=== PATIENT | male | born 1940 | race Caucasian/White ===

== ENCOUNTER 2023-06-13 13:27 | Emergency (ER) | payer OTHER, SELFPAY ==
[2023-06-13 13:35] VITALS: BP 143/74
--- NOTE | 2023-06-13 16:16 | ED.GENMED ---
History of Present Illness
General
Chief Complaint: Headache
Source: patient
Exam Limitations: none
Time Seen by Provider: 06/13/23 16:00
Nursing documentation reviewed up to this point in time: agreed with
Travel History
Have you had any contact with someone who has COVID-19?: No
Do you have any symptoms of coronavirus? Fever > 100 degrees, chills, cough, shortness of breath, sore throat, loss of taste or smell, muscle aches, or headache?: No
History of Present Illness
History of Present Illness:
Patient states he was diagnosed with shingles 3 weeks ago. Involved right posterior scalp right side of face. 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 States for the past 24 hours he has had intermittent shooting pain thru scalp. Pain
lasts just a few seconds. No additional symptoms. Brought self to ED for eval.
Past History
Past History
ED Past Medical History: Arrthythmia (Atrial fibrillation noted during hospitalization October 2022), Cancer (Laryngeal cancer, colon cancer) and Other (Pneumonia)
ED Past Surgical History: Bowel resection, Cholecystectomy, Urological and Other (Tracheostomy/laryngectomy)
Social History
Tobacco: Former smoker
Alcohol: None
Drug: None
Living: alone
Employment: Retired
Family History
Family History: Other (Noncontributory)
Review of Systems
Review of Systems
Allergies reviewed?: Yes
All Other Systems: ROS reviewed and negative except as documented in HPI and ROS
Constitutional: Reports no symptoms
EENT: Reports no symptoms
Respiratory: Reports no symptoms
Cardiac: Reports no symptoms
ABD/GI: Reports no symptoms
Musculoskeletal: Reports no symptoms
Skin: Reports no symptoms
Neurological: Reports other (shooting pain thru scalp)
Psychiatric: Reports no symptoms
Phy Exam
General Physical Exam
General Presentation: well appearing and no apparent distress
General age: appears stated age
General Skin: dry
General Habitus: normal
General Mental: alert
ENT Exam
ENT Exam: EOMI, TM's normal and neck supple
Neurological Exam
Neurological Exam: alert, oriented x3, CN II-XII intact, no motor deficits, no sensory deficits, speech normal (laryngectomy in past. Uses electrolarynx for speech.) and normal gait
Musculoskeletal Exam
Musculoskeletal Exam: full ROM
Skin Exam
Skin Exam: normal color, warm/dry and no rash
Psychiatric Exam
Psychiatric Exam: normal mood/affect
Course
Vital Signs
Initial and Last Documented VS:
Initial Vital Signs
Temp Pulse Resp BP Pulse Ox
98.9 F 73 18 143/74 98
06/13/23 13:35 06/13/23 13:35 06/13/23 13:35 06/13/23 13:35 06/13/23 13:35
Last Documented Vital Signs
Temp Pulse Resp BP Pulse Ox
98.9 F 73 18 143/74 98
06/13/23 13:35 06/13/23 13:35 06/13/23 13:35 06/13/23 13:35 06/13/23 13:35
*Critical Care Note
Total Time (30-74mins, 75-104mins- exclusive of procedures): Not Applicable
Update Note
Update Note:
Patient to ED with intermittent shooting pain to scalp following shingles outbreak 3 weeks ago. No new rash noted. No swelling or discharge to face or scalp. No other symptoms present. Consistent with post herpetic neuralgia. Rx for gabapentin
given. He is discharged home, will follow upw tih PCP
ED Attending Note
-
Portions of this chart may have been created with voice recognition software.� Occasional wrong word or��sound alike� substitutions may have occurred due to the inherent limitations of voice recognition software.
Discharge Plan
Departure
Patient Disposition: Home (Routine Discharge)
Date of Disposition: 06/13/23
Time of Disposition: 16:11
Patient with high blood pressure during this ER visit?: No
Condition: Good
Discharge Problem:
Neuralgia, post-herpetic
Instructions: Neuropathic pain
Prescriptions:
New
gabapentin 300 mg capsule
300 mg PO DIRECTED Qty: 61 0RF
Rx Instructions:
Take 300mg daily for 1 day, then 600mg every 12 hours
No Action
rosuvastatin [Crestor] 10 mg Tablet
10 mg PO QPM
Eliquis 5 mg Tablet
5 mg PO BID Qty: 60 0RF
guaifenesin 600 mg Tablet Extended Release 12hr
600 mg PO Q12 Qty: 14 0RF
metoprolol succinate 25 mg Tablet Extended Release 24 Hr
25 mg PO DAILY Qty: 30 0RF
amiodarone [Pacerone] 200 mg Tablet
200 mg PO BID Qty: 60 0RF
furosemide [Lasix] 40 mg tablet
40 mg PO BID Qty: 60 0RF
ketoconazole 2 % Shampoo
1 applic TOPICAL PRN PRN (Reason: face)
desonide 0.05 % Lotion
1 applic TOPICAL PRN PRN (Reason: face )
clobetasol 0.05 % Lotion
1 applic TOPICAL PRN PRN (Reason: legs)
Activity Restrictions/Additional Instructions:
Follow up with your family doctor in the AM
Interventions
Interventions:
*Risk Screen - Suicide Last Done: 06/13/23 13:35
*General Assessment Last Done: 06/13/23 13:35
*Neglect/Abuse Screening Last Done: 06/13/23 13:35
*ED COVID-19 Vaccine History Last Done: 06/13/23 13:35
[2023-06-13 16:45] VITALS: BP 135/54
== END 2023-06-13 16:59 | disposition home or self-care (01) ==
LOC: EMR 13:27
PROVIDERS: EMERGENCY PHYSICIAN Emergency Medicine; FAMILY PHYSICIAN Physician Assistant Medical
DX: B02.29 Other postherpetic nervous system involvement (principal); Z87.891 Personal history of nicotine dependence
CPT/HCPCS: 99283

== ENCOUNTER → 2023-06-27 09:42 | Outpatient (REF) | payer OTHER, SELFPAY | LOC: HWRAD 09:42 | PROVIDERS: ATTENDING PHYSICIAN Family Medicine; FAMILY PHYSICIAN Physician Assistant Medical | DX: R22.1 Localized swelling, mass and lump, neck (principal); R21 Rash and other nonspecific skin eruption | CPT/HCPCS: 76536 ==

== ENCOUNTER 2023-07-16 19:44 | Inpatient (IN) | payer OTHER, SELFPAY ==
[2023-07-16] VITALS (7 sets, daily range): BP systolic 79–190; BP diastolic 53–110; BMI 24.0
[2023-07-16 15:22] LABS: % Basophils 0.1 % (0-2); % Immature Granulocytes 0.6 % (0-0.5); % Lymphocytes 5.4 % (20.5-51.1); % Monocytes 3.6 % (1.7-9.3); % Neutrophils 90.3 % (42.2-75.2); Absolute Immature Granulocytes 0.1 10^3/uL (0-0.05); Absolute Lymphocytes 0.9 10^3/uL (1.2-3.4); Absolute Monocytes 0.6 10^3/uL (0.1-0.6); Absolute Neutrophils 14.5 10^3/uL (1.4-6.5); Hematocrit 34.5 % (39.0-52.0); Hemoglobin 11.8 g/dL (13.0-18.0); Mean Corp Hgb Conc. 34.2 g/dL (33.0-37.0); Mean Corpuscular Volume 87.8 fL (80.0-94.0); Mean Platelet Volume 9.6 fL (7.4-10.4); Nucleated Red Blood Cells % 0 % (-); Platelet Count 199 10^3/uL (130-400); Red Blood Cell Count 3.93 10^6/uL (4.70-6.10); Red Cell Dist. Width 15.8 % (11.5-14.5)
[2023-07-16 15:35] LABS: INR 1.43; PT 17.3 Sec (11.4-14.6)
[2023-07-16 15:47] LABS: ALT (SGPT) 42 U/L (0-50); AST (SGOT) 45 U/L (17-59); Albumin 2.3 g/dl (3.5-5.0); Alkaline Phosphatase 100 U/L (38-126); Blood Urea Nitrogen 33 mg/dl (9-20); Calcium 8.4 mg/dl (8.4-10.2); Carbon Dioxide 27 mmol/L (22-30); Chloride 103 mmol/L (98-107); Glucose 98 mg/dl (70-99); Potassium 3.9 mmol/L (3.5-5.1); Sodium 133 mmol/L (135-145); Total Bilirubin 0.7 mg/dl (0.2-1.3); Total Protein 4.7 g/dl (6.3-8.2); eGFR > 60.00
[2023-07-16 15:54] LABS: NT-proBNP 2080 pg/ml; Troponin I 0.105 ng/ml
--- NOTE | 2023-07-16 17:46 | ED.GENMED ---
History of Present Illness
General
Chief Complaint: Skin Problem
Source: patient and family (Son, spoke via telephone)
Exam Limitations: none
Time Seen by Provider: 07/16/23 16:48
Nursing documentation reviewed up to this point in time: agreed with
Travel History
Have you had any contact with someone who has COVID-19?: No
Do you have any symptoms of coronavirus? Fever > 100 degrees, chills, cough, shortness of breath, sore throat, loss of taste or smell, muscle aches, or headache?: No
History of Present Illness
History of Present Illness:
83-year-old male with past medical history of laryngeal cancer status post laryngectomy, colon cancer status post partial bowel resection, atrial fibrillation on Eliquis (follows with Dr. Giles for cardiology), CHF who presents to the emergency
department from home for evaluation of increased swelling in his legs and increasing shortness of breath. Patient reports that for the past 2 weeks or so he has noticed increasing edema in his legs right slightly greater than left associated with
some weeping of fluid from the legs. Over that same period of time he says he has noticed some increasing shortness of breath; this shortness of breath have gotten much worse over the past few days. He says it is gotten to the point where it takes
him a very long time even to just walk up the stairs due to need for frequent rest. Finally came to the emergency room to be evaluated. He does note that in addition to above symptoms he has had some thick mucus discharge from his stoma; he says
his primary doctor prescribed him levofloxacin which he has taken x 3 total doses including today.
Past History
Past History
ED Past Medical History: Arrthythmia (Atrial fibrillation noted during hospitalization October 2022), Cancer (Laryngeal cancer, colon cancer) and Other (Pneumonia)
ED Past Surgical History: Bowel resection, Cholecystectomy, Urological and Other (Tracheostomy/laryngectomy)
Social History
Tobacco: Former smoker
Alcohol: None
Drug: None
Living: alone
Employment: Retired
Family History
Family History: Other (Noncontributory)
Review of Systems
Review of Systems
All Other Systems: ROS reviewed and negative except as documented in HPI and ROS
Constitutional: Denies fever or chills
EENT: Denies sore throat or runny nose
Respiratory: Reports cough and trouble breathing
Cardiac: Denies chest pain or palpitations
ABD/GI: Denies abdominal pain, nausea or vomiting
: Denies flank pain
Musculoskeletal: Reports edema; Denies neck pain or back pain
Neurological: Denies headache
Phy Exam
Physical Exam
Physical Exam:
General: Awake, alert; no acute distress
Head: Normocephalic, atraumatic
Eyes: Conjunctiva normal, EOMI
Throat: Stoma; patient has hacking cough and produces thick black sputum from stoma
Neck: Trachea midline, supple without meningismus
Lungs: Mild tachypnea, normal pulse ox on room air, bibasilar rales
Heart: Regular rate and rhythm, no murmurs, gallops, or rubs
Abd: Soft, non distended, nontender
Neuro: Cranial nerves grossly intact, speech fluid
Extremities: Bilateral lower extremity edema slightly greater right than left +2 pitting; extremities are warm and well-perfused
Scores
Heart Failure Risk
Heart Failure Risk Score: Not Applicable
Heart Score for Chest Pain Patients
STEMI patient?: Not applicable
Withdrawal Assessment of Alcohol
Withdrawal Assessment Completed?: Not applicable
Course
Orders/Labs/Results
Orders:
Orders
07/16/23 Breakfast
Cholesterol Lowering
At Your Request: Limited, Beauty Specialist Required
Does patient need a safe tray?: No
Cholesterol Lowering: Sodium, 2 Gram
07/16/23 15:10
Electrocardiogram (*1) Urgent
Reason for Study: Shortness of Breath
EKG- Treatment ONCE
07/16/23 15:15
Complete Blood Count/With Diff Urgent
Comprehensive Metabolic Panel Urgent
NT-proBNP Urgent
PT/INR [Prothrombin Time] Urgent
Troponin I Urgent
07/16/23 16:49
CR Chest - 2 Views Urgent
Comment:
Reason For Exam: sob
US Periph Venous LOWER Ext Iain Urgent
Comment:
Reason For Exam: b/l leg swelling R>L
07/16/23 17:46
Furosemide [Lasix] 40 mg IV NOW STA
07/16/23 18:12
INFECTIOUS DISEASE CONSULT Routine
Consulting Provider: Linda Valentin
Was physician already notified: Yes
Cefepime HCl [Maxipime] 1,000 mg IV NOW STA
07/16/23 18:14
Lactate Level [Lactic Acid] Urgent
Blood Culture Q30M
SONY Source: Blood/Venous
Specimen Description:
Blood Culture Q30M
SONY Source: Blood/Venous
Specimen Description:
07/16/23 18:41
Admit/Transfer Patient As Directed
Co-Sign Provider:
Level of Care: Inpatient admission
Assign to:: Telemetry
Physician / Group: Iris
Diagnosis: Pneumonia, CHF
Reason for Telemetry: Acute Heart Failure
Date to Stop Telemetry: 07/19/23
Time to Stop Telemetry: 11:00
Reason for Hospitalization: IV abx, IV diuretics
Expected length of stay greater than two midnights?: Yes
ELOS- Estimated Length of Stay in days: 3
I certify the patient meets the requirements for IP care: Yes
07/16/23 18:43
Code Status As Directed
Resuscitation Status: Full Code
07/16/23 20:08
Apixaban [Eliquis] 5 mg PO BID
Guaifenesin [Mucinex] 600 mg PO Q12
07/16/23 20:08
Echo 2D MMode Color/Doppler Routine
Reason for Study: heart failure
CARDIOLOGY CONSULT Routine
Consulting Provider: Linwood Mendez
Was physician already notified: Yes
HF DIETARY CONSULT Routine
HF EDUCATOR CONSULT Routine
Comment:
Activity As Directed
Activity Level: Out of Bed-Early Mobility
Intake/ Output As Directed
Frequency: Per unit guidelines
Knee High Compression Therapy [Compression Therapy] As Directed
Location/extremity:: Left LE knee high
Right LE knee high
Type of compression therapy:: Sammy Wrap
Patient Education As Directed
Type: CHF folder
Comment: give on admission. Document in Interdisciplinary Education record
Sleep Apnea Assessment by RN As Directed
Comment:
Physician Instructions:
Vital Signs As Directed
Frequency: Other
Additional Instructions:: Q12 or per unit guidelines if more frequent.
Weight As Directed
Frequency: Daily
Type of Scale: Standing Scale
Comment: Daily morning weight. If unable to stand, use balanced bed scale.
Weight As Directed
Frequency: Once
Type of Scale: Standing Scale
Comment: Upon Admission. If unable to stand, use balanced bed scale.
Pulse Ox/cont/shift [RESP] Routine
Quantity: 1
Special Instructions: Daily pulse oximetry at rest. If greater than 92% at rest also obtain pulse oximetry
while ambulating as tolerated.
07/16/23 20:56
Troponin I Q6H
07/16/23 22:00
Gabapentin [Neurontin] 600 mg PO TID
07/16/23 23:04
Sputum Culture [Respiratory Culture/Gram Stain] Urgent
SONY Source: Tracheal Site
Specimen Description:
Date Specimen was Collected: 07/16/23
Time Specimen was Collected: 22:58
07/17/23 03:00
Troponin I Q6H
07/17/23 06:00
Basic Metabolic Panel IN AM
Cardiovascular Evaluation IN AM
Complete Blood Count/No Diff IN AM
Magnesium IN AM
07/17/23 08:00
Amiodarone [Pacerone] 200 mg PO DAILY
Cefepime HCl [Maxipime] 2,000 mg IV Q12H
Furosemide [Lasix] 40 mg IV BID AT 0800,1600
Metoprolol Xl [Toprol Xl] 25 mg PO DAILY
Prednisone [Deltasone] 20 mg PO DAILY
07/17/23 18:00
Rosuvastatin Calcium [Crestor] 10 mg PO QPM
07/18/23 06:00
Basic Metabolic Panel IN AM
07/19/23 06:00
Basic Metabolic Panel IN AM
07/19/23 11:00
DC Protocol for Telemetry ONCE
Abnormal Lab Results
07/16/23
15:15
WBC 16.0 H 10^3/uL
(4.8-10.8)
RBC 3.93 L 10^6/uL
(4.70-6.10)
Hgb 11.8 L g/dL
(13.0-18.0)
Hct 34.5 L %
(39.0-52.0)
RDW 15.8 H %
(11.5-14.5)
Abs Immat Gran (auto) 0.1 H 10^3/uL
(0-0.05)
Absolute Neuts (auto) 14.5 H 10^3/uL
(1.4-6.5)
Absolute Lymphs (auto) 0.9 L 10^3/uL
(1.2-3.4)
Immature Gran % 0.6 H %
(0-0.5)
Neutrophils % 90.3 H %
(42.2-75.2)
Lymphocytes % 5.4 L %
(20.5-51.1)
PT 17.3 H Sec
(11.4-14.6)
Sodium 133 L mmol/L
(135-145)
BUN 33 H mg/dl
(9-20)
Troponin I 0.105 H* ng/ml
Total Protein 4.7 L g/dl
(6.3-8.2)
Albumin 2.3 L g/dl
(3.5-5.0)
07/16/23 15:15
07/16/23 15:15
Vital Signs
Initial and Last Documented VS:
Initial Vital Signs
Temp Pulse Resp BP Pulse Ox
36.7 C 60 16 190/110 95
07/16/23 15:06 07/16/23 15:06 07/16/23 15:06 07/16/23 15:06 07/16/23 15:06
Last Documented Vital Signs
Temp Pulse Resp BP Pulse Ox
36.9 C 78 20 103/57 97
07/16/23 23:42 07/16/23 23:42 07/16/23 23:42 07/16/23 23:42 07/16/23 23:42
MDM/Problems Addressed
Differential Diagnosis Includes:
CHF, pneumonia, bronchitis
MDM/Problems Addressed:
83-year-old male presents for evaluation of increasing edema in his legs also increasing shortness of breath for the past 2 weeks; shortness of breath much worse over the past few days. He has been on antibiotics recently for productive cough�has
taken 3 total doses of levofloxacin last dose was this afternoon. He is hypertensive in triage normalized by myself the rest of vitals significantly for mild tachypnea. Physical exam as above. Plan to place an IV check labs including CBC and CMP,
troponin, BNP. Check chest x-ray and EKG. Monitor closely reassess after the above.
Labs reviewed: CBC shows leukocytosis to 16�with leukocytosis and tachycardia and concern for infection with productive cough will add lactate and blood cultures. CMP shows no clinically significant abnormalities. proBNP is elevated as is his
troponin and suspect likely mild CHF exacerbation as cause for his increasing abdominal and contributing to his shortness of breath. The chest x-ray however shows significant left lower lobe pneumonia as well which is likely primary tilt tray driver of his
worsening dyspnea recently. Will plan dose with some Lasix for mild CHF. Will need to trend troponin. Discussed with infectious disease regarding antibiotic coverage given he did take a dose of Levaquin today�recommended sputum culture and a dose
of IV cefepime. Will admit to the hospitalist for continued management. Discussed with hospitalist for admission.
Chronic conditions affecting care:
Laryngeal cancer status post laryngectomy
Acute Exacerbation and/or Progression of Chronic Illness:
Acutely hypertensive resolved without intervention continue to monitor but no additional antihypertensive indicated at present
Acute Exacerbation and/or Progression of Chronic Illness: HTN
*Radiology
Radiology exam reviewed: preliminary read by ED provider (Left lower lobar pneumonia) and radiology read reviewed
*Pulse Oximetry
Patient hypoxic: no
*EKG
Interpreted by ED Provider?: Yes
Heart Rate: 85
Rate: normal
Rhythm: sinus
[place]: normal axis
Interval: normal interval
QRS Pattern: normal QRS
Ischemia: non-specific ST changes
*Critical Care Note
Total Time (30-74mins, 75-104mins- exclusive of procedures): Not Applicable
Data Reviewed
Review of Other/Old Records Reveals: Labs and Records
Source: patient, records and family (Spoke with patient's son on the phone)
Patient Management
Discussion with other providers: Hospitalist (Discussed with hospitalist) and Insights Analyst (Discussed with infectious disease)
Escalation/DeEscalation of care consider admission/obs:
Admission indicated
ED Attending Note
-
Portions of this chart may have been created with voice recognition software.� Occasional wrong word or��sound alike� substitutions may have occurred due to the inherent limitations of voice recognition software.
Discharge Plan
Departure
Patient Disposition: Admit
Date of Disposition: 07/16/23
Time of Disposition: 18:11
Admit to doctor: Wilbert
Presentation/result/management discussed w/ accepting MD/DO: Hospitalist
Discharge Problem:
Pneumonia, CHF exacerbation
Interventions
Interventions:
*Risk Screen - Suicide Last Done: 07/16/23 17:28
*General Assessment Last Done: 07/16/23 17:28
*Neglect/Abuse Screening Last Done: 07/16/23 17:28
ED- Fall Risk Assessment Last Done: 07/16/23 21:07
*ED COVID-19 Vaccine History Last Done: 07/16/23 15:06
*Nursing Disposition Last Done: 07/16/23 21:07
Discharge Date and Time
Discharge Date/Time: 07/16/23 21:07
[2023-07-16] MEDS: LASIX 40 MG IV (18:10)
[2023-07-16 18:40] LABS: Lactic Acid 0.9 mmol/L (0.7-2.0)
[2023-07-16] MEDS: MAXIPIME 1000 MG IV (19:04)
--- NOTE | 2023-07-16 19:06 | HPS.HSE ---
Addendum entered and electronically signed by Roberto Simmons MD 07/16/23 21:10:
I saw and examined the patient.
The POSSUM TRAPPER or PA's note was reviewed and I agree with the note.
Comment:
83M A-fib, CHF, CAD, laryngeal cancer s/p laryngectomy recent shingles affecting right sided of head, resolving on steroid taper, p/w increased shortness of breath, lower extremity edema and weeping from legs, progressive exertional dyspnea, �past
two weeks. SOB especially worsening over past few days. �Patient was prescribed Levaquin by his PCP which he took for 3 days without significant resolution of symptoms. Denies fevers, sweats or chills.� CXR suggestive of Left Lower PNA.� BNP and
troponin elevation noted.� Chest Pain free.
Physical Exam
General: No pallor, cyanosis, or jaundice.
HEENT: Throat clear. PERRLA Normocephalic atraumatic
NECK: Supple. No Carotid Bruits, Stoma present
RESPIRATORY: Lungs clear to auscultation. No crackles wheezes stridor
CVS: S1, S2 normal. RRR.� No murmur, rub or gallop.
ABDOMEN: Soft, non-tender. No distension. BS+/normal.
EXTREMITIES: weeping lower ext�s edema +2.
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
#HF exacerbation
#PNA
#Recent Right Facial Shingles with Post-Herpetic Neuralgia, resolving
Wean off steroids
IV Lasix daily weights I/O
Empiric Cefipime as per ID
Cardio ID eval
Venous Duplex appreciated neg DVT�
Compressive MARISA wraps lower ext�s
PT/OT eval
Original Note:
Family Physician
-
Family Physician: * NONE
Chief Complaint
-
Shortness of Breath, and Lower Extremity
History of Present Illness
Patient is an 83 y/o male past medical history of A-fib, CHF, CAD, and laryngeal cancer s/p laryngectomy who presents with increased shortness of breath, lower extremity edema and weeping from the legs. Patient notes worsening symptoms over the
past two weeks. He reports breathing has gotten much worsen of the past dew days. He notes now he needs to rest frequently while walking up the stairs but to pain in his calves. He reports increased thick mucus from his tracheostomy thus his PCP
prescribed him Levaquin for which he has taken the past 3 days. He denies fevers, sweats or chills.
Medical History
Past Medical History
Past Medical History: Reports Other
Additional Past Medical History:
Paroxysmal Atrial Fibrillation
Chronic HFpEF
Coronary Artery Disease
Essential Hypertension
Hyperlipidemia
Laryngeal Cancer
Colon Cancer
Past Surgical History: Reports Other
Additional Past Surgical History:
Laryngectomy with Tracheostomy
Colectomy
Cholecystectomy
Social History
Tobacco: Former Smoker
Family History
Family History: Not pertinent
Allergies / Home Medications
Allergies reflects when Allergies were last updated in [employer].
Home Medications with original date entered in [employer]
Allergy/Medication List:
Allergies
Allergy/AdvReac Type Severity Reaction Status Date / Time
No Known Allergies Allergy Verified 07/16/23 15:09
Home Medications
rosuvastatin 10 mg tablet (Crestor) 10 mg PO QPM High Cholesterol 11/20/22
apixaban 5 mg tablet (Eliquis) 5 mg PO BID #60 tabs 11/24/22
guaifenesin 600 mg tablet, extended release 12 hr 600 mg PO Q12 #14 tabs 11/24/22
metoprolol succinate 25 mg tablet,extended release 24 hr 25 mg PO DAILY #30 tabs 11/24/22
furosemide 40 mg tablet (Lasix) 40 mg PO BID #60 tabs 12/08/22
clobetasol 0.05 % lotion 1 applic topical PRN PRN legs 12/28/22
desonide 0.05 % lotion 1 applic topical PRN PRN face 12/28/22
ketoconazole 2 % shampoo 1 applic topical PRN PRN face 12/28/22
amiodarone 200 mg tablet (Pacerone) 200 mg PO DAILY 07/16/23
gabapentin 300 mg capsule 600 mg PO TID 07/16/23
levofloxacin 500 mg tablet 500 mg PO DAILY 07/16/23
prednisone 10 mg tablet 10 mg PO .TAPER 07/16/23
Review of Systems
-
A 12 point ROS was completed and negative except as noted: Yes
Constitutional: Denies Fever or Chills
Respiratory: Reports Trouble Breathing; Denies Cough
Cardiac: Denies Chest Pain or Palpitations
Physical Exam
Vital Signs
Vital Signs
Temp Pulse Resp BP Pulse Ox
98.0 F 74 23 107/66 95
07/16/23 15:06 07/16/23 18:10 07/16/23 18:00 07/16/23 18:10 07/16/23 17:00
Physical Exam
General: Comfortable and Conversant
HEENT: Anicteric, Moist mucous membranes and Tracheotomy
Respiratory: Rales (Left middle and lower region, Right abse) and Non Labored Respirations
Cardiac: S1/S2 and Regular Rhythm; No Tachycardia or Murmur
GI: Soft and Non Tender
Rectal: Deferred by Provider
Musculoskeletal: No Clubbing, No Cyanosis and Other (+3 pitting edema bilateral lower ext)
Skin: Warm and Dry
Neuro: Awake, Alert, Oriented and Nonfocal/grossly intact
Psych: Calm
Laboratory Results
-
07/16/23 15:15
07/16/23 15:15
Laboratory Results
PT 17.3 Sec (11.4-14.6) H 07/16/23 15:15
INR 1.43 07/16/23 15:15
Lactic Acid 0.9 mmol/L (0.7-2.0) 07/16/23 18:14
Total Bilirubin 0.7 mg/dl (0.2-1.3) 07/16/23 15:15
AST 45 U/L (17-59) 07/16/23 15:15
ALT 42 U/L (0-50) 07/16/23 15:15
Alkaline Phosphatase 100 U/L (38-126) 07/16/23 15:15
Troponin I 0.105 ng/ml H* 07/16/23 15:15
Data Reviewed
-
Diagnostic Radiology: Report Reviewed by me
Lab Data: Labs Reviewed by me
Old Records: Reviewed
Impression/Plan
-
Left-Sided Pneumonia
-Consult Infectious Disease
-Check sputum culture
-Transition to Cefepime
Acute on Chronic HFpEF
-Echo Oct 2022: EF 55-60%. Mild concentric left ventricular hypertrophy. Stage II diastolic dysfunction.
-Continue Lasix 40mg IV BID
-Monitor Is&Os and Daily Weights
Non-Ischemic Myocardial Injury
-Continue to trend troponin
Recent Right Facial Shingles with Post-Herpetic Neuralgia
-Continue gabapentin
-Suspect prednisone is contributing his fluid retention - Wean off prednisone
Paroxysmal Atrial Fibrillation
-Continue Eliquis for anticoagulation
-Continue amiodarone and metoprolol for rate/rhythm control
Coronary Artery Disease
-No prior stents
Essential Hypertension
-Continue metoprolol
Hyperlipidemia
-Continue Crestor
Laryngeal Cancer s/p Laryngectomy and Tracheostomy
Colon Cancer s/p Colon Resection
DVT proph: Eliquis
Code Status: Full Code
--- NOTE | 2023-07-16 19:26 | W.PN.UPDATE ---
Update Note
Progress Note Update
billing purposes
[2023-07-16 21:37] LABS: Troponin I 0.116 ng/ml
--- NOTE | 2023-07-16 22:00 | PTCARENOTE ---
Patient admitted to 401-2. Ambulatory from stretcher to bed with one assist. Patient with a neck stoma, respiratory notified. Patient puts normal saline stoma, and he couged up some blood tinged sputum, respiratory culture sent. Patient with +2
bilateral lower extremity edema, at this time they are not weeping. Patient instructed to ring for assistance prior to getting out of bed, he verbalized understanding. Call waite in reach.
[2023-07-16] MEDS: NEURONTIN 600 MG PO (22:41)
[2023-07-16] MEDS: ELIQUIS 5 MG PO (22:42)
[2023-07-16] MEDS: MUCINEX 600 MG PO (22:42)
[2023-07-17] VITALS (7 sets, daily range): BP systolic 95–135; BP diastolic 61–76; PULSE 72; O2SAT 97; BMI 24.0
[2023-07-17] MEDS: NEURONTIN 600 MG PO ×3 (04:46→21:31)
[2023-07-17 05:10] LABS: Troponin I 0.092 ng/ml
[2023-07-17 06:50] LABS: Hematocrit 35.3 % (39.0-52.0); Hemoglobin 11.6 g/dL (13.0-18.0); Mean Corp Hgb Conc. 32.9 g/dL (33.0-37.0); Mean Corpuscular Hgb 29.9 pg (27.0-31.0); Mean Platelet Volume 10.2 fL (7.4-10.4); Platelet Count 182 10^3/uL (130-400); Red Blood Cell Count 3.88 10^6/uL (4.70-6.10); Red Cell Dist. Width 15.8 % (11.5-14.5); White Blood Cell Count 11.6 10^3/uL (4.8-10.8)
[2023-07-17 07:16] LABS: Blood Urea Nitrogen 32 mg/dl (9-20); Calcium 8.4 mg/dl (8.4-10.2); Carbon Dioxide 29 mmol/L (22-30); Chloride 102 mmol/L (98-107); Estimated Creatinine Clearance 50 ml/min; Glucose 95 mg/dl (70-99); HDL Cholesterol 92 mg/dl; LDL Cholesterol, Calculated 18 mg/dl; Magnesium 2.4 mg/dl (1.6-2.3); Sodium 134 mmol/L (135-145); Total Cholesterol 140 mg/dl (50-199); Triglyceride 153 mg/dl (10-149); Very Low Density Lipoprotein 30 mg/dl (0-30); eGFR > 60.00
[2023-07-17 07:21] LABS: Potassium 3.7 mmol/L (3.5-5.1)
--- NOTE | 2023-07-17 07:58 | W.PN.HOSP.TC ---
Today's Communication/Plan
-
steroid tapers
abx
diuretics
daily weights I/O
PT/OT
Assessment / Plan
Assessment / Plan
Physical Exam
General: No pallor, cyanosis, or jaundice.
HEENT: Throat clear. PERRLA Normocephalic atraumatic
NECK: Supple. No Carotid Bruits, Stoma present
RESPIRATORY: Lungs clear to auscultation. No crackles wheezes stridor
CVS: S1, S2 normal. RRR.� No murmur, rub or gallop.
ABDOMEN: Soft, non-tender. No distension. BS+/normal.
EXTREMITIES: lower ext's MARISA compressive wrapping in place clean dry intact.
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
83M A-fib, CHF, CAD, laryngeal cancer s/p laryngectomy recent shingles affecting right sided of head, resolving on steroid taper, p/w increased shortness of breath, lower extremity edema and weeping from legs, progressive exertional dyspnea, �past
two weeks. SOB especially worsening over past few days. �Patient was prescribed Levaquin by his PCP which he took for 3 days without significant resolution of symptoms. Denies fevers, sweats or chills.� CXR suggestive of Left Lower PNA.� BNP and
troponin elevation noted.� Chest Pain free.
Left-Sided Pneumonia
-Consult Infectious Disease appreciated cont empiric Cefipime, doxycycline added 07/16
-Follow cultures
Acute on Chronic HFpEF
-Echo appreciated EF 55-60%. Mild concentric left ventricular hypertrophy. Stage II diastolic dysfunction. Mod to severe tricuspid regurgitation, no significant change to prior ECHO Oct 2022
-Continue Lasix 40mg IV BID
-Monitor Is&Os and Daily Weights
-Cardio eval appreciated
Non-Ischemic Myocardial Injury
-troponin peaked 0.116 since trended down, chest pain free
Recent Right Facial Shingles with Post-Herpetic Neuralgia
-Continue gabapentin
-Suspect prednisone is contributing his fluid retention - Weaning off prednisone
-prednisone 20 mg daily x2 days then 10 mg daily x2 days then stop
-Emla cream prn
Paroxysmal Atrial Fibrillation
-Continue Eliquis for anticoagulation
-Continue amiodarone and metoprolol for rate/rhythm control
Essential Hypertension
-Continue metoprolol
Hyperlipidemia
-Continue Crestor
Laryngeal Cancer s/p Laryngectomy and Tracheostomy
Colon Cancer s/p Colon Resection
DVT proph: Eliquis
Code Status: Full Code
PT/OT appreciated Home PT vs no needs
discussed with patient at bedside and his son Sefeirno over phone
I spent a total of 50 minutes with the patient or on the floor. More than 50% of this time involved counseling and coordination of care.
Anticipated Discharge: 24 - 48 hours
Subjective/Interval History
-
Date of Service: July 17, 2023
reports significant improvement in overall symptoms. Appears comfortable at this time. reports constipation
Objective Data
-
Labs:
Laboratory Results
07/17/23
06:11
WBC 11.6 H
Hgb 11.6 L
Hct 35.3 L
Plt Count 182
Sodium 134 L
Potassium 3.7
Chloride 102
Carbon Dioxide 29
BUN 32 H
Creatinine 1.0
Glucose 95
Calcium 8.4
Vital Signs:
Vital Signs
Temp Pulse Resp BP Pulse Ox
98.1 F 70 18 100/68 99
07/17/23 03:18 07/17/23 03:18 07/17/23 03:18 07/17/23 03:18 07/17/23 03:18
I&O
07/16/23 07/17/23 07/18/23
06:59 06:59 06:59
Intake Total 360 / 360
Output Total 1000 / 1000
Balance -640 / -640
[2023-07-17] MEDS: MUCINEX 600 MG PO ×2 (08:06→19:39)
[2023-07-17] MEDS: PACERONE 200 MG PO (08:06)
[2023-07-17] MEDS: ELIQUIS 5 MG PO ×2 (08:07→19:39)
[2023-07-17] MEDS: DELTASONE 20 MG PO (08:07)
[2023-07-17] MEDS: TOPROL XL 25 MG PO (08:07)
[2023-07-17] MEDS: LASIX 40 MG IV ×2 (08:07→15:50)
[2023-07-17] MEDS: STERILE WATER FOR INJECTION 10 ML IV ×2 (08:08→19:40)
[2023-07-17] MEDS: MAXIPIME 2000 MG IV ×2 (08:08→19:40)
--- NOTE | 2023-07-17 10:04 | CON.CAR ---
Addendum entered and electronically signed by Kota Salazar MD 07/17/23 13:31:
I saw and examined the patient.
The ORCHESTRA LEADER or PA's note was reviewed and I agree with the note.
Comment: General: Well developed, well nourished in NAD.
Neck: Supple, no JVD, HJR, carotids +2 B/L, no bruits bilaterally.
Heart: Non displaced PMI, RRR, no murmurs, No S3, S4, no rubs.
Lungs: Scattered rhonchi
Extremities: No clubbing, cyanosis or edema bilaterally.
Neuro: Grossly nonfocal, awake, alert and oriented x3.
Bennie has a history of chronic diastolic CHF, laryngeal cancer status post resection and tracheostomy with speaking valve, colon cancer, amaurosis fugax, moderate CAD noted on CAT scan. He had CHF and paroxysmal atrial flutter in October 2022. He has
noted several weeks of weight gain with worsening lower extremity edema with weeping and shortness of breath with exertion and abdominal bloating. He has a bit of acute diastolic CHF. proBNP is 0. Chest x-ray also read as pneumonia and he is
on antibiotics.
Will continue IV Lasix and recheck echocardiogram. Of note lowest weight by prior records in December 2022 was 141 pounds and is currently 144 pounds.
Original Note:
Consultation
Consultation Request
Date/Time Consultation Performed: 07/17/23
Requesting Provider: Dr. Simmons
Performing Provider: Afua Troy PA-C for Dr. Salazar
Reason for Consultation: CHF
Medical History
-
Chief Complaint: LE edema, SOB
History of Present Illness:
Patient is an 83-year-old male with past medical history of laryngeal cancer status postresection and tracheostomy with speaking valve, history of colon cancer status post partial colectomy, moderate CAD, dyslipidemia, who we had seen during
previous admissions for pneumonia and new paroxysmal atrial flutter 10/2022, then for CHF in 12/2022. He reports he has been compliant with his p.o. Lasix 40 mg twice daily. He states over the last several weeks he has noticed weight gain, worsening
lower extremity edema with weeping, and shortness of breath with exertion. He is also noted abdominal bloating. Denies chest pain or palpitations. proBNP 2079. Chest x-ray read as severe left lower lobe pneumonia, with small parapneumonic
pleural effusion, however clinically appears more likely to be in heart failure. He is afebrile. He was recently treated for shingles affecting R side of head, on steroid taper.
PMH:
chronic HFpEF
Paroxysmal atrial fibrillation/atrial flutter diagnosed 10/2022, rate controlled
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
History of colon cancer in 2004 status post partial colectomy
Amaurosis fugax
Dyslipidemia
Moderate CAD noted on CT of the chest
History of pulmonary nodules
Past Medical History
Past Medical History: Other (in HPI)
Social History
Tobacco: Former Smoker
Employment: Retired
Allergies / Home Medications
Allergy/AdvReac Type Severity Reaction Status Date / Time
No Known Allergies Allergy Verified 07/16/23 15:09
�Medication �Instructions �Recorded �Confirmed �Type
rosuvastatin 10 mg tablet (Crestor) 10 mg PO QPM High Cholesterol 11/20/22 07/16/23 History
apixaban 5 mg tablet (Eliquis) 5 mg PO BID #60 tabs 11/24/22 07/16/23 Rx
guaifenesin 600 mg tablet, 600 mg PO Q12 #14 tabs 11/24/22 07/16/23 Rx
extended release 12 hr
metoprolol succinate 25 mg 25 mg PO DAILY #30 tabs 11/24/22 07/16/23 Rx
tablet,extended release 24 hr
furosemide 40 mg tablet (Lasix) 40 mg PO BID #60 tabs 12/08/22 07/16/23 Rx
clobetasol 0.05 % lotion 1 applic topical PRN PRN legs 12/28/22 07/16/23 History
desonide 0.05 % lotion 1 applic topical PRN PRN face 12/28/22 07/16/23 History
ketoconazole 2 % shampoo 1 applic topical PRN PRN face 12/28/22 07/16/23 History
amiodarone 200 mg tablet (Pacerone) 200 mg PO DAILY 07/16/23 07/16/23 History
gabapentin 300 mg capsule 600 mg PO TID 07/16/23 07/16/23 History
levofloxacin 500 mg tablet 500 mg PO DAILY 07/16/23 07/16/23 History
prednisone 10 mg tablet 10 mg PO .TAPER 07/16/23 07/16/23 History
Review of Systems
-
History Source: Patient
All other systems: Negative unless noted
Physical Exam
Vital Signs
Temp Pulse Resp BP Pulse Ox
97.7 F 72 18 103/71 95
07/17/23 08:02 07/17/23 08:07 07/17/23 08:02 07/17/23 08:07 07/17/23 08:02
Lab Results
07/17/23 06:11
07/17/23 06:11
Troponin I 0.092 ng/ml H* 07/17/23 03:08
Iiw-Q-Wclhcjpijer Pept 2080 pg/ml 07/16/23 15:15
Physical Exam
General: No Apparent Distress and Comfortable
HEENT: Normocephalic, Anicteric and Moist Mucous Membranes
Respiratory: Wheezes, Crackles and Non Labored Respirations
Cardiac: S1/S2 and Regular Rhythm
GI: Soft, Non Tender, Normal Bowel Sounds and Distended
Musculoskeletal: No Clubbing, No Cyanosis and Edema (2+ edema of B/L LE. jose luis compression wraps in place)
Skin: Warm and Dry
Neuro: AO x 3
Impression / Plan
-
Primary Infrastructure Engineer: Dr. Giles
Assessment:
Presentation with VILLELA, LE edema
Acute on chronic HFpEF
Elevated troponin, suspected nonischemic myocardial injury
Recent shingles, right side of head
Paroxysmal atrial fibrillation/atrial flutter diagnosed 10/2022
s/p CV 12/28/22
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
History of colon cancer in 2004 status post partial colectomy
Amaurosis fugax
Dyslipidemia
Moderate CAD noted on CT of the chest
History of pulmonary nodules
ECHO 12/13/2021: EF 50 to 55%, trace MR, mild AR, trace TR, PAP 40 to 45 mmHg, trace VT
Echocardiogram 11/23/2022: EF 55-60%, mild LVH.� Increased filling pressures, normal dilated left atrium, mild aortic regurgitation, moderate tricuspid regurgitation, pulmonary artery systolic pressure 35-40 mmHg, trace mitral regurgitation
Lexiscan nuclear stress test 04/27/2022: Normal sestamibi perfusion imaging, EF 60%
Plan:
-Patient presents with dyspnea on exertion, lower extremity edema, abdominal bloating
-proBNP elevated at 2000. Chest x-ray read as left-sided pneumonia, however history and exam felt to be consistent with acute CHF
-Continue IV Lasix 40 mg twice daily. Prior to admission patient was taking 40 mg p.o. Lasix twice daily and reports compliance. he reports prior DC weight from last admission was 134 pounds, however lowest I see is 141 pounds
-CHF education
-In sinus rhythm since admission on review of telemetry, follow. Continue Toprol, amiodarone, Eliquis
-Last echo from 10/2022, consider repeating
-Will have case management assess cost to patient of SGLT2 inhibitor
-trop elevated at 0.1 and trending down. no CP. last stress test from 04/2022 with results as above, although is noted to have coronary calcifications by CT chest. suspected nonischemic myocardial injury
-wound care to B/L LE
-Discussed with nursing
Data Reviewed
-
EKG: Tracing Personally Visualized and interpreted
Radiology: Report Reviewed by me
Medical Tests (Nuc Med, Echo etc): Report Reviewed by me
Labs: Labs Reviewed by me
Old Records: Reviewed
--- NOTE | 2023-07-17 11:00 | CON.ID ---
Consultation
-
Date/Time Consultation Requested: July 16, 2023 1812
Date/Time Consultation Performed: July 17, 2023 1100
Requesting Provider: Dr. Jose Ferreira
Performing Provider: Dr. Linda Valentin
Reason for Consultation: PNA on levofloxacin outpt
Chief Complaint / Past History
Chief Complaint
cough and sob
History of Present Illness
83-year-old male with history of paroxysmal atrial fibrillation, chronic heart failure with preserved EF, remote history of laying green gel cancer status post Laryngectomy with tracheostomy who has been complaining of worsening shortness of breath
and increasing bilateral lower extremity edema for the past 2 weeks. Also has been coughing productive of thick dark mucus from his stoma. His PCP prescribed levofloxacin 3 days prior to presentation. His dyspnea on exertion became severe and
therefore he came to the ER on July 15. Chest x-ray shows severe left-sided pneumonia. He was started on cefepime. Patient reports no fevers at home. Had some chills. Did have diarrhea but now constipated. No ill contacts. Sputum decreased
today.
Past History
Additional Past Medical History:
Paroxysmal Atrial Fibrillation
Chronic HFpEF
Coronary Artery Disease
Essential Hypertension
Hyperlipidemia
Laryngeal Cancer s/p Laryngectomy with Tracheostomy
Colon Cancer s/p colectomy
Right posteior scalp shingles with PHN
cholecystectomy
Allergy History:
No Known Allergies Allergy (Verified 07/16/23 15:09)
Medications Reviewed: Yes
Current Antibiotics:
Cefepime
Social History
Tobacco: Former Smoker
Alcohol: None
Drug: None
Family History
Family History: Not Pertinent
Review of Systems
Review of Systems
General: Change in Appetite; Negative Fever
HEENT: Negative Sinus Problems, Headache or Pharyngitis
Cardiovascular: Dyspnea and Edema
Respiratory: Dyspnea, Cough and Sputum Production
Gasteroenterology: Negative Nausea or Vomiting
Genital / Urological: Negative Dysuria or Flank Pain
Endocrine: Weakness
Skin / Hair / Nails: Negative Rash
Neurological: Negative Headache or Dizziness
All systems: All other systems were reviewed and were negative
Vital Signs
Temp Pulse Resp BP Pulse Ox
97.7 F 72 18 103/71 95
07/17/23 08:02 07/17/23 08:07 07/17/23 08:02 07/17/23 08:07 07/17/23 08:02
Physical Exam
Physical Exam
Constitutional: No Acute Distress and Comfortable
Eyes: No Conjunctival Hemorrhage and Sclera Anicteric
Cardiovascular: Regular Rate and S1/S2
Pulmonary: Coarse (left base), Non Labored and Other; Negative Rales
Gastrointestinal: Soft, Non Tender, Non Distended and Normal Bowel Sounds
Extremities: Edema (2+ bilateral LE)
Neurological: AO x 3
Lab / Diagnostic Study Results
07/17/23 06:11
07/17/23 06:11
Abs Immat Gran (auto) 0.1 10^3/uL (0-0.05) H 07/16/23 15:15
Absolute Neuts (auto) 14.5 10^3/uL (1.4-6.5) H 07/16/23 15:15
Absolute Lymphs (auto) 0.9 10^3/uL (1.2-3.4) L 07/16/23 15:15
Absolute Monos (auto) 0.6 10^3/uL (0.1-0.6) 07/16/23 15:15
Absolute Basos (auto) 0.0 10^3/uL (0-0.2) 07/16/23 15:15
Immature Gran % 0.6 % (0-0.5) H 07/16/23 15:15
Neutrophils % 90.3 % (42.2-75.2) H 07/16/23 15:15
Lymphocytes % 5.4 % (20.5-51.1) L 07/16/23 15:15
Monocytes % 3.6 % (1.7-9.3) 07/16/23 15:15
Eosinophils % 0.0 % (0-6) 07/16/23 15:15
Basophils % 0.1 % (0-2) 07/16/23 15:15
PT 17.3 Sec (11.4-14.6) H 07/16/23 15:15
INR 1.43 07/16/23 15:15
Lactic Acid 0.9 mmol/L (0.7-2.0) 07/16/23 18:14
Microbiology Results
Micro:
07/16/23 23:04 Respiratory Culture - Pending
Tracheal Site Gram Stain - Preliminary
07/16/23 18:14 Blood Culture - Pending
Blood/Venous
07/16/23 18:14 Blood Culture - Pending
Blood/Venous
07/16/23 CXR: SEVERE LEFT LOWER LOBE PNEUMONIA. Mild left upper lobe pneumonia. Small left parapneumonic pleural effusion.
Assessment / Plan
# L CAP, (on levofloxacin 3 doses outpt)
# Leukocytosis
# Acute on chronic CHF
# Remote h/o laryngeal ca s/p laryngectomy
- Await sputum cx
-Continue cefepime
- Add doxycycline po
-Will de-escalate abx's when culture data available.
[2023-07-17] MEDS: VIBRAMYCIN 100 MG PO ×2 (13:27→19:39)
[2023-07-17] MEDS: EMLA CREAM 1 GRAM TOPICAL (13:52)
[2023-07-17] MEDS: COLACE 100 MG PO (15:59)
--- NOTE | 2023-07-17 16:20 | CM ---
Alert awake oriented patient who lives alone in an apartment with 5 and 7 steps to enter.HE is independent in driving and all activities of daily living.Offered VN he is uncertain. No adaptive devices. Son Tarun is supportive.Pt use transducer to
speak he has no Larynex.
No SNF/ VN hx
[facility]acy[facility]
PCP Dr Carbajal
PLAN Home unsure of VN need.
[2023-07-17] MEDS: CRESTOR 10 MG PO (17:14)
[2023-07-17] MEDS: SENOKOT-S 1 TABLET PO (19:39)
[2023-07-18] VITALS (7 sets, daily range): BP systolic 99–125; BP diastolic 61–75; PULSE 67; O2SAT 98; BMI 23.8
--- NOTE | 2023-07-18 04:52 | DOWNTIME ---
There was a [employer] Client [employer] Downtime on 07/18/2023 from 0100 to 07/18/2023 at 0439. Downtime documentation of patient's care, including medication administrations, has been reconciled in the electronic record per guidelines. Refer to the
patient's paper chart under the miscellaneous tab to see printed paper medication records and downtime forms.
[2023-07-18 08:01] LABS: Hematocrit 35.7 % (39.0-52.0); Hemoglobin 11.6 g/dL (13.0-18.0); Mean Corp Hgb Conc. 32.5 g/dL (33.0-37.0); Mean Corpuscular Hgb 29.7 pg (27.0-31.0); Mean Corpuscular Volume 91.3 fL (80.0-94.0); Mean Platelet Volume 10.1 fL (7.4-10.4); Platelet Count 197 10^3/uL (130-400); Red Blood Cell Count 3.91 10^6/uL (4.70-6.10); Red Cell Dist. Width 15.5 % (11.5-14.5); White Blood Cell Count 11.6 10^3/uL (4.8-10.8)
--- NOTE | 2023-07-18 08:38 | W.PN.HOSP.TC ---
Today's Communication/Plan
-
steroid taper
abx
diuretics
daily weights I/O
PT/OT
Pulm eval
arterial study MILO
Assessment / Plan
Assessment / Plan
Physical Exam
General: No pallor, cyanosis, or jaundice.
HEENT: Throat clear. PERRLA Normocephalic atraumatic
NECK: Supple. No Carotid Bruits, Stoma present
RESPIRATORY: Lungs clear to auscultation. No crackles wheezes stridor
CVS: S1, S2 normal. RRR.� No murmur, rub or gallop.
ABDOMEN: Soft, non-tender. No distension. BS+/normal.
EXTREMITIES: lower ext's MARISA compressive wrapping in place clean dry intact.
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
83M A-fib, CHF, CAD, laryngeal cancer s/p laryngectomy recent shingles affecting right sided of head, resolving on steroid taper, p/w increased shortness of breath, lower extremity edema and weeping from legs, progressive exertional dyspnea, �past
two weeks. SOB especially worsening over past few days. �Patient was prescribed Levaquin by his PCP which he took for 3 days without significant resolution of symptoms. Denies fevers, sweats or chills.� CXR suggestive of Left Lower PNA.� BNP and
troponin elevation noted.� Chest Pain free.
Left-Sided Pneumonia
-Consult Infectious Disease appreciated cont doxycycline, empiric Cefipime narrowed to cefazolin
-Follow cultures, sputum cx positive for staph aureua
Persistent Hemoptysis
-Quantify
-monitor H&H, stable
-Pulm eval requested
Acute on Chronic HFpEF
-Echo appreciated EF 55-60%. Mild concentric left ventricular hypertrophy. Stage II diastolic dysfunction. Mod to severe tricuspid regurgitation, no significant change to prior ECHO Oct 2022
-Continue Lasix 40mg IV BID
-Monitor Is&Os and Daily Weights
-Cardio eval appreciated
Non-Ischemic Myocardial Injury
-troponin peaked 0.116 since trended down, chest pain free
Recent Right Facial Shingles with Post-Herpetic Neuralgia
-Continue gabapentin
-Suspect prednisone is contributing his fluid retention - Weaning off prednisone
-prednisone 20 mg daily x2 days then 10 mg daily x2 days then stop
-Emla cream prn
Paroxysmal Atrial Fibrillation
-Continue Eliquis for anticoagulation
-Continue amiodarone and metoprolol for rate/rhythm control
Intermittent Leg Cramping on ambulation
suspect PAD
check lower ext arterial study MILO
Essential Hypertension
-Continue metoprolol
Hyperlipidemia
-Continue Crestor
Laryngeal Cancer s/p Laryngectomy and Tracheostomy
Colon Cancer s/p Colon Resection
DVT proph: Eliquis
Code Status: Full Code
PT/OT appreciated Home PT vs no needs
I spent a total of 50 minutes with the patient or on the floor. More than 50% of this time involved counseling and coordination of care.
Anticipated Discharge: 24 - 48 hours
Subjective/Interval History
-
Date of Service: July 18, 2023
Reports persistent hemoptysis and intermittent leg cramping on ambulation
Objective Data
-
Labs:
Laboratory Results
07/18/23
06:38
WBC 11.6 H
Hgb 11.6 L
Hct 35.7 L
Plt Count 197
Sodium Pending
Potassium Pending
Chloride Pending
Carbon Dioxide Pending
BUN Pending
Creatinine Pending
Glucose Pending
Calcium Pending
Vital Signs:
Vital Signs
Temp Pulse Resp BP Pulse Ox
97.6 F 67 16 125/73 100
07/18/23 07:21 07/18/23 07:21 07/18/23 07:21 07/18/23 07:21 07/18/23 07:21
I&O
07/17/23 07/18/23 07/19/23
06:59 06:59 06:59
Intake Total 360 / 360 1200 / 1200
Output Total 1000 / 1000 2275 / 2275
Balance -640 / -640 -1075 / -1075
[2023-07-18] MEDS: ANCEF 10 IV ×3 (09:21→23:58)
[2023-07-18] MEDS: ELIQUIS 5 MG PO ×2 (09:22→20:46)
[2023-07-18] MEDS: NEURONTIN 600 MG PO ×3 (09:22→20:46)
[2023-07-18] MEDS: SENOKOT-S 1 TABLET PO ×2 (09:22→20:46)
[2023-07-18] MEDS: PACERONE 200 MG PO (09:22)
[2023-07-18] MEDS: VIBRAMYCIN 100 MG PO ×2 (09:22→20:46)
[2023-07-18 09:23] LABS: Blood Urea Nitrogen 32 mg/dl (9-20); Calcium 8.9 mg/dl (8.4-10.2); Carbon Dioxide 25 mmol/L (22-30); Chloride 103 mmol/L (98-107); Estimated Creatinine Clearance 56 ml/min; Glucose 67 mg/dl (70-99); Magnesium 2.3 mg/dl (1.6-2.3); Potassium 3.9 mmol/L (3.5-5.1); Sodium 133 mmol/L (135-145); eGFR > 60.00
[2023-07-18] MEDS: TOPROL XL 25 MG PO (09:23)
[2023-07-18] MEDS: DELTASONE 20 MG PO (09:24)
[2023-07-18] MEDS: MUCINEX 600 MG PO ×2 (09:26→20:46)
[2023-07-18] MEDS: EMLA CREAM 1 GRAM TOPICAL (09:26)
[2023-07-18] MEDS: MIRALAX 17 GRAMS PO (09:26)
[2023-07-18] MEDS: STERILE WATER FOR INJECTION IV (09:27)
[2023-07-18] MEDS: MAXIPIME IV (09:27)
[2023-07-18] MEDS: LASIX 40 MG IV ×2 (09:42→16:07)
--- NOTE | 2023-07-18 12:27 | W.PN.ID1 ---
Date of Service
Date of Service: July 18, 2023
Today's Communication
Narrow cefepime to cefazolin.
Assessment / Plan
# L CAP, (on levofloxacin 3 doses outpt)
# Leukocytosis improving
# Acute on chronic CHF
# Remote h/o laryngeal ca s/p laryngectomy
- sputum cx: Staph aureus
- Narrow cefepime to cefazolin
- Continue doxycycline po for now pending final culture data
#Additional Past Medical History:
Paroxysmal Atrial Fibrillation
Chronic HFpEF
Coronary Artery Disease
Essential Hypertension
Hyperlipidemia
Laryngeal Cancer s/p Laryngectomy with Tracheostomy
Colon Cancer s/p colectomy
Right posterior scalp shingles with PHN
cholecystectomy
Chief Complaint
-: Pneumonia
Subjective / Review of Systems
Cough/SOB better. Sputum production clearer and decreased.
Vital Signs / Physical Exam
Vital Signs
Vital Signs
Temp Pulse Resp BP Pulse Ox
97.6 F 65 20 99/63 98
07/18/23 11:02 07/18/23 11:02 07/18/23 11:02 07/18/23 11:02 07/18/23 11:02
Physical Exam
Constitutional: No Acute Distress
Pulmonary: Coarse (left base)
Extremities: Edema (BLE 2 to 3+)
Neurological: AO x 3
Objective Data
Lab Data
Lab Results
07/18/23 06:38
07/18/23 06:38
PT 17.3 Sec (11.4-14.6) H 07/16/23 15:15
INR 1.43 07/16/23 15:15
Estimated Creat Clear 56 ml/min 07/18/23 06:38
Lactic Acid 0.9 mmol/L (0.7-2.0) 07/16/23 18:14
Total Bilirubin 0.7 mg/dl (0.2-1.3) 07/16/23 15:15
AST 45 U/L (17-59) 07/16/23 15:15
ALT 42 U/L (0-50) 07/16/23 15:15
Alkaline Phosphatase 100 U/L (38-126) 07/16/23 15:15
Most recent labs reviewed.
Micro Results:
07/16/23 23:04 Respiratory Culture - Preliminary
Tracheal Site Staphylococcus aureus
Gram Stain - Preliminary
07/16/23 18:14 Blood Culture - Preliminary
Blood/Venous No Growth in 24 hours- Final report to follow
07/16/23 18:14 Blood Culture - Preliminary
Blood/Venous No Growth in 24 hours- Final report to follow
07/16/23 CXR: SEVERE LEFT LOWER LOBE PNEUMONIA. Mild left upper lobe pneumonia. Small left parapneumonic pleural effusion.
--- NOTE | 2023-07-18 15:03 | CON.PUL ---
Consultation
Consultation Request
Date/Time Consultation Requested: 07/18/2023 - 1256
Date/Time Consultation Performed: 07/18/2023 - 1402
Requesting Provider: Dr. Simmons
Performing Provider: Dr. Lu
Reason for Consultation: Hemoptysis/VILLELA
Medical History
-
Chief Complaint: Lower extremity pain with leakage from right marie; SOB with exertion
History of Present Illness:
83-year-old male with a past medical history of laryngeal cancer s/p laryngectomy, history of colon cancer s/p colon resection, former tobacco use disorder, ED, BPH with LUTS, paroxysmal A-fib on Eliquis, and CAD who presents with bilateral lower
extremity pain with swelling/leakage from right marie. 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 BP elevated in the ER to 190/110, heart rate 60, breathing at 16 breaths/min, afebrile to 98 �F and he was saturating 95% on
room air. Labs showed leukocytosis to 16, Hb 11.8, BUN elevated at 33, troponin 1.105, proBNP elevated at 2080, serum albumin low at 2.3, blood cultures were collected, and CXR showed severe left lower lobe pneumonia and mild RAS pneumonia with a
small left-sided parapneumonic effusion. Of note, lower extremity DVT study is negative. There is severe diffuse subcutaneous edema seen throughout both legs. Patient developed hemoptysis, and his Eliquis is now on hold with last dose on morning
of 07/18/2023. Of note, in the ER he was given Lasix and cefepime. Antibiotics were continued with cefepime on the floor. He also was given IV Lasix given concern for acute heart failure. Given his hemoptysis with severe left-sided pneumonia,
pulmonary now consulted for additional recommendations/management.
Of note patient saw us in October [address] Kaba due to a right lower lobe pulmonary nodule as well as radiographic emphysema. Emphysema is mild and most pronounced in the lung apices. He reported no significant respiratory symptoms at the
time hence no inhalers were started. He is an ex-smoker smoking 1�1.5 PPD X 20 years and quit in 1983. 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
PMHx: History of laryngeal cancer (diagnosed 1993) s/p laryngectomy, history of colon cancer s/p colon resection (diagnosed 2004), former tobacco use disorder (quit 1983 with [id number] history), hyperlipidemia, ED, BPH with LUTS, paroxysmal A-fib
on Eliquis, history of multinodular goiter, hypertension, CAD
PSHx: Laryngectomy; colon resection, cholecystectomy
Past Medical History
Past Medical History: Other (Above as per HPI)
Past Surgical History: Other (Above as per HPI)
Social History
Tobacco: Former Smoker ( 1-1.5 PPD X 20 years and quit in 1983)
Alcohol: Occasional
Drug: None
Family History
Family History: Reviewed & Not Pertinent
Allergies / Home Medications
Allergies
Allergy/AdvReac Type Severity Reaction Status Date / Time
No Known Allergies Allergy Verified 07/16/23 15:09
Home Medications
�Medication �Instructions �Recorded �Confirmed �Last Taken �Type
rosuvastatin 10 mg tablet (Crestor) 10 mg PO QPM High Cholesterol 11/20/22 07/16/23 12/27/22 19:30 History
apixaban 5 mg tablet (Eliquis) 5 mg PO BID #60 tabs 11/24/22 07/16/23 12/28/22 08:00 Rx
guaifenesin 600 mg tablet, 600 mg PO Q12 #14 tabs 11/24/22 07/16/23 12/27/22 19:30 Rx
extended release 12 hr
metoprolol succinate 25 mg 25 mg PO DAILY #30 tabs 11/24/22 07/16/23 12/27/22 07:30 Rx
tablet,extended release 24 hr
furosemide 40 mg tablet (Lasix) 40 mg PO BID #60 tabs 12/08/22 07/16/23 12/28/22 07:30 Rx
clobetasol 0.05 % lotion 1 applic topical PRN PRN legs 12/28/22 07/16/23 Unknown History
desonide 0.05 % lotion 1 applic topical PRN PRN face 12/28/22 07/16/23 Unknown History
ketoconazole 2 % shampoo 1 applic topical PRN PRN face 12/28/22 07/16/23 Unknown History
amiodarone 200 mg tablet (Pacerone) 200 mg PO DAILY 07/16/23 07/16/23 Unknown History
gabapentin 300 mg capsule 600 mg PO TID 07/16/23 07/16/23 Unknown History
levofloxacin 500 mg tablet 500 mg PO DAILY 07/16/23 07/16/23 Unknown History
prednisone 10 mg tablet 10 mg PO .TAPER 07/16/23 07/16/23 Unknown History
Review of Systems
-
History Source: Patient
All other systems: Negative unless noted
Vitals / Labs / Diagnostic Testing
Vital Signs
Temp Pulse Resp BP Pulse Ox
97.6 F 65 20 99/63 98
07/18/23 11:02 07/18/23 11:02 07/18/23 11:02 07/18/23 11:02 07/18/23 11:02
Lab Data
07/18/23 06:38
07/18/23 06:38
Microbiology
07/16/23 23:04 Tracheal Site Respiratory Culture - Preliminary
Staphylococcus aureus
07/16/23 23:04 Tracheal Site Gram Stain - Preliminary
07/16/23 18:14 Blood/Venous Blood Culture - Preliminary
No Growth in 24 hours- Final report to follow
07/16/23 18:14 Blood/Venous Blood Culture - Preliminary
No Growth in 24 hours- Final report to follow
Diagnostic Testing:
Physical Exam
-
HEENT: Normocephalic, Anicteric and Other (No exsanguination seen from stoma)
Cardiovascular: Irregular Rhythm
Respiratory: Clear
GI: Soft, Non Distended and Non Tender
Neurology: Awake and Alert
Skin: Warm and Dry
General: Comfortable
Assessment
-
Assessment: 83-year-old male with a past medical history of laryngeal cancer s/p laryngectomy, history of colon cancer s/p colon resection, former tobacco use disorder, ED, BPH with LUTS, paroxysmal A-fib on Eliquis, and CAD who presents with
bilateral lower extremity pain with swelling/leakage from right marie. 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 BP elevated in the ER to 190/110, heart rate 60, breathing at 16 breaths/min, afebrile to 98 �F and he was
saturating 95% on room air. Labs showed leukocytosis to 16, Hb 11.8, BUN elevated at 33, troponin 1.105, proBNP elevated at 2080, serum albumin low at 2.3, blood cultures were collected, and CXR showed severe left lower lobe pneumonia and mild RAS
pneumonia with a small left-sided parapneumonic effusion. Of note, lower extremity DVT study is negative. There is severe diffuse subcutaneous edema seen throughout both legs. Patient developed hemoptysis, and his Eliquis is now on hold with last
dose on morning of 07/18/2023. Of note, in the ER he was given Lasix and cefepime. Antibiotics were continued with cefepime on the floor. He also was given IV Lasix given concern for acute heart failure. Given his hemoptysis with severe
left-sided pneumonia, pulmonary now consulted for additional recommendations/management.
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
LUTS, paroxysmal A-fib on Eliquis, history of multinodular goiter, hypertension, CAD
Impression:
#Left-sided CAP
#Positive sputum Cx with S. aureus
#Left-sided parapneumonic effusion
#Non-life threatening hemoptysis - patient says that whenever he gets an 'infection' in his stoma, he develops bloody cough - this is not unusual for him
#Acute compensated heart failure/acute HFpEF with stage II diastolic dysfunction
#Elevated troponin -peaked at 0.116 on 07/16/2023
#Leukocytosis -due to CAP as above
#Anemia
#Hypoglycemia - 67 this AM on BMP
#Paroxysmal atrial fibrillation on Eliquis
Plan:
- Continue with antibiotics as per ID - currently on Ancef and Doxy
- Sputum Cx growing S aureus --> follow up sensitivities
- Maintain SpO2 >90-94% with supplemental O2 as needed
- It appears he is in the middle of a prednisone taper --> continue this and wean as tolerated
- Incentive spirometer
- Mucolytics with mucinex
- prn nebulized bronchodilators
- Replete electrolytes with K>4, Mg>2
- Heart rate control with goal HR<110bpm
- Maintain MAP>65
- No need to continue trending troponin given it peaked ready 2 days ago
- Maintain euglycemia with goal BG >100 and <180
- Transfuse blood products as needed to maintain Hb>7g/dL and plt>50k
- DVT ppx: Ok to resume Eliquis as his hemoptysis is mild, and not unusual for him as per patient, kaylen when he gets an infection in his stoma (?laryngitis)
Pulmonary service will continue to follow along.
Total time spent today was 55 minutes for this encounter. Time includes reviewing laboratory test/imaging results, reviewing pertinent medical records, obtaining and reviewing medical history, performing an appropriate exam, ordering medications,
tests and procedures. Time also includes documentation of this encounter, coordinating patient care and communicating with other healthcare professionals. Total time does not include separately billed tests performed on this date of service.
Data:
CXR 07-16-2023:
1. SEVERE LEFT LOWER LOBE PNEUMONIA.
2. Mild left upper lobe pneumonia.
3. Small left parapneumonic pleural effusion.
4. Severe calcific atherosclerotic plaque in the coronary arteries.
5. Diffuse bone demineralization.
TTE 07-17-2023:
Normal left ventricular chamber size. Normal left ventricular systolic
function. Left ventricular ejection fraction is 55-60% by volumetric
assessment. Normal regional wall motion. Mild concentric left ventricular
hypertrophy. Stage II diastolic dysfunction suggestive of abnormal relaxation
and increased filling pressures.
Mild mitral leaflet thickening. Mitral valve opens normally. Mild mitral
regurgitation.
Indexed LA volume is mildly abnormal (35-41 mL/m2).
Trileaflet aortic valve. Aortic valve opens normally. Mild aortic
regurgitation.
Tricuspid valve opens normally. Moderate to severe tricuspid regurgitation.
Estimated pulmonary artery pressure of 45 mmHg assuming a right atrial pressure
of 3 mmHg.
Since echocardiogram 11/23/2022, there is no significant change.
--- NOTE | 2023-07-18 15:14 | W.PN.CARDCBS ---
Today's Communication / Plan
-
Improving volume status
Consider change to oral Lasix on 07/18
Check cost of Jardiance/Farxiga
Impression / Plan
-
Primary Dispatcher Relay: Dr. Giles
Assessment:
Presentation with VILLELA, LE edema
Acute on chronic HFpEF
Nonischemic myocardial injury, peak troponin 0.116
Recent shingles, right side of head
Paroxysmal atrial fibrillation/atrial flutter diagnosed 10/2022
s/p CV 12/28/22
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
History of colon cancer in 2004 status post partial colectomy
Amaurosis fugax
Dyslipidemia
Moderate CAD noted on CT of the chest
History of pulmonary nodules
ECHO 12/13/2021: EF 50 to 55%, trace MR, mild AR, trace TR, PAP 40 to 45 mmHg, trace CO
Echocardiogram 11/23/2022: EF 55-60%, mild LVH.� Increased filling pressures, normal dilated left atrium, mild aortic regurgitation, moderate tricuspid regurgitation, pulmonary artery systolic pressure 35-40 mmHg, trace mitral regurgitation
Lexiscan nuclear stress test 04/27/2022: Normal sestamibi perfusion imaging, EF 60%
Echocardiogram 07/17/2023: Ejection fraction 55 to 60%, mild concentric LVH, mild MR, mild AI, moderate to severe TR with PA systolic of 45 mmHg
Plan:
General examination but likely is nearing euvolemia
Weight is currently 143 pounds and was 141 pounds in the past
Consider change to oral Lasix on 07/18
Echocardiogram unchanged
In sinus rhythm since admission on review of telemetry, follow. Continue Toprol, amiodarone, Eliquis
Will have case management assess cost to patient of SGLT2 inhibitor
Infectious disease treating for pneumonia
Discussed with primary service
Progress Note - Dispatcher Relay
Subjective
Date of Service: July 18, 2023
No complaints
Objective
Labs:
07/18/23 06:38
07/18/23 06:38
Labs
Hgb 11.6 g/dL (13.0-18.0) L 07/18/23 06:38
Hct 35.7 % (39.0-52.0) L 07/18/23 06:38
Plt Count 197 10^3/uL (130-400) 07/18/23 06:38
PT 17.3 Sec (11.4-14.6) H 07/16/23 15:15
INR 1.43 07/16/23 15:15
Sodium 133 mmol/L (135-145) L 07/18/23 06:38
Potassium 3.9 mmol/L (3.5-5.1) 07/18/23 06:38
BUN 32 mg/dl (9-20) H 07/18/23 06:38
Creatinine 0.9 mg/dL (0.7-1.3) 07/18/23 06:38
Glucose 67 mg/dl (70-99) L 07/18/23 06:38
Troponins
07/16/23 07/16/23 07/17/23
15:15 20:56 03:08
Troponin I 0.105 H* 0.116 H* 0.092 H*
Vital Signs and I&O:
Vital Signs
Temp Pulse Resp BP Pulse Ox
97.6 F 65 20 99/63 98
07/18/23 11:02 07/18/23 11:02 07/18/23 11:02 07/18/23 11:02 07/18/23 11:02
Vital Signs
Temp Pulse Resp BP Pulse Ox
97.6 F 65 20 99/63 98
07/18/23 11:02 07/18/23 11:02 07/18/23 11:02 07/18/23 11:02 07/18/23 11:02
Intake & Output
04/07/17/23 07/18/23 07/19/23
06:59 06:59 06:59 06:59
Intake Total 360 / 360 1200 / 1200
Output Total 1000 / 1000 2275 / 2275
Balance -640 / -640 -1075 / -1075
Physical Exam
Physical Exam
General: Well developed, well nourished in NAD.
Neck: Supple, no JVD, HJR, carotids +2 B/L, no bruits bilaterally.
Heart: Non displaced PMI, RRR, no murmurs, No S3, S4, no rubs.
Lungs: Scattered rhonchi
Extremities: No clubbing, cyanosis or edema bilaterally.
Neuro: Grossly nonfocal, awake, alert and oriented x3.
[2023-07-18] MEDS: CRESTOR 10 MG PO (16:08)
[2023-07-18] MEDS: COLACE 100 MG PO (16:08)
--- NOTE | 2023-07-18 18:31 | PTCARENOTE ---
Arrived to unit and ambulated with assist of 2 to bed on RA. Sats remain above 92%. Generalized red flat itchy throughout body. Patients reports rash present since April. Providers aware. See MAR. [place] in place as patient is incontinent and
orthopneic. Urine is blue. Oriented to room, call waite within reach.
[2023-07-19] VITALS (7 sets, daily range): BP systolic 93–110; BP diastolic 56–72; PULSE 72; BMI 23.0
[2023-07-19] MEDS: EMLA CREAM 1 GRAM TOPICAL (06:01)
--- NOTE | 2023-07-19 07:29 | W.PN.HOSP.TC ---
Today's Communication/Plan
-
cont abx as per ID
diuresis as per cardio
PT/OT
Monitor
possible discharge tomorrow home with home services
Assessment / Plan
Assessment / Plan
Physical Exam
General: No pallor, cyanosis, or jaundice.
HEENT: Throat clear. PERRLA Normocephalic atraumatic
NECK: Supple. No Carotid Bruits, Stoma present
RESPIRATORY: Lungs clear to auscultation. No crackles wheezes stridor
CVS: S1, S2 normal. RRR.� No murmur, rub or gallop.
ABDOMEN: Soft, non-tender. No distension. BS+/normal.
EXTREMITIES: lower ext's MARISA compressive wrapping in place clean dry intact.
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
83M A-fib, CHF, CAD, laryngeal cancer s/p laryngectomy recent shingles affecting right sided of head, resolving on steroid taper, p/w increased shortness of breath, lower extremity edema and weeping from legs, progressive exertional dyspnea, �past
two weeks. SOB especially worsening over past few days. �Patient was prescribed Levaquin by his PCP which he took for 3 days without significant resolution of symptoms. Denies fevers, sweats or chills.� CXR suggestive of Left Lower PNA.� BNP and
troponin elevation noted.� Chest Pain free.
Left-Sided Pneumonia
-sputum cx positive for MRSA, Blood Cx's NGTD
-Consult Infectious Disease appreciated empiric Cefipime narrowed to cefazolin, doxycycline added, both discontinued in favor of oral linezolid (MRSA resistant to doxycycline)
Persistent Hemoptysis, resolving
-Quantify
-monitor H&H, stable
-Pulm eval appreciated ok to cont home Eliquis, repeat imaging in 4-6 weeks and outpatient Pulm follow up recommended.
Acute on Chronic HFpEF
-Echo appreciated EF 55-60%. Mild concentric left ventricular hypertrophy. Stage II diastolic dysfunction. Mod to severe tricuspid regurgitation, no significant change to prior ECHO Oct 2022
-Monitor Is&Os and Daily Weights
-Cardio eval appreciated Lasix 40mg IV BID transitioned to PO, considering start Jardiance
Non-Ischemic Myocardial Injury
-troponin peaked 0.116 since trended down, chest pain free
Recent Right Facial Shingles with Post-Herpetic Neuralgia
-Continue gabapentin
-Suspect prednisone is contributing his fluid retention - Weaning off prednisone
-prednisone 20 mg daily x2 days then 10 mg daily x2 days then stop
-Emla cream prn
Paroxysmal Atrial Fibrillation
-Continue Eliquis for anticoagulation
-Continue amiodarone and metoprolol for rate/rhythm control
Intermittent Leg Cramping on ambulation
Likely PAD
lower ext arterial study MILO appreciated possible Infrapopliteal artery disease present bilateral noted.
Symptoms improving with physical therapy and exercise education provided by PT
cont conservative mgmt, outpatient follow up with vascular recommended.
Essential Hypertension
-Continue metoprolol
Hyperlipidemia
-Continue Crestor
Laryngeal Cancer s/p Laryngectomy and Tracheostomy
Colon Cancer s/p Colon Resection
DVT proph: Eliquis
Code Status: Full Code
PT/OT appreciated Home PT vs no needs
discussed with patient at bedside and patient's son over phone
I spent a total of 55 minutes with the patient or on the floor. More than 50% of this time involved counseling and coordination of care.
Anticipated Discharge: Within 24 hours
Subjective/Interval History
-
Date of Service: July 19, 2023
Reports feeling well, intermittent claudication ambulation improving. Hemoptysis resolved. Patient reports overall feeling well.
Objective Data
-
Labs:
Laboratory Results
07/19/23
06:53
WBC Pending
Hgb Pending
Hct Pending
Plt Count Pending
Sodium Pending
Potassium Pending
Chloride Pending
Carbon Dioxide Pending
BUN Pending
Creatinine Pending
Glucose Pending
Calcium Pending
Vital Signs:
Vital Signs
Temp Pulse Resp BP Pulse Ox
98.0 F 65 18 110/72 96
07/19/23 03:45 07/19/23 03:45 07/19/23 03:45 07/19/23 03:45 07/19/23 03:45
I&O
07/18/23 07/19/23 07/20/23
06:59 06:59 06:59
Intake Total 1200 / 1200 1020 / 1020
Output Total 2275 / 2275 3800 / 3800
Balance -1075 / -1075 -2780 / -2780
[2023-07-19 08:28] LABS: Hematocrit 39.2 % (39.0-52.0); Hemoglobin 12.5 g/dL (13.0-18.0); Mean Corp Hgb Conc. 31.9 g/dL (33.0-37.0); Mean Corpuscular Hgb 29.5 pg (27.0-31.0); Mean Corpuscular Volume 92.5 fL (80.0-94.0); Platelet Count 224 10^3/uL (130-400); Red Blood Cell Count 4.24 10^6/uL (4.70-6.10); Red Cell Dist. Width 15.4 % (11.5-14.5); White Blood Cell Count 9.5 10^3/uL (4.8-10.8)
[2023-07-19] MEDS: ANCEF 10 IV (08:39)
[2023-07-19] MEDS: MIRALAX 17 GRAMS PO (08:40)
[2023-07-19] MEDS: PACERONE 200 MG PO (08:40)
[2023-07-19] MEDS: MUCINEX 600 MG PO ×2 (08:40→19:55)
[2023-07-19] MEDS: DELTASONE 10 MG PO (08:40)
[2023-07-19] MEDS: SENOKOT-S 1 TABLET PO ×2 (08:40→19:56)
[2023-07-19] MEDS: VIBRAMYCIN 100 MG PO (08:40)
[2023-07-19] MEDS: ELIQUIS 5 MG PO ×2 (08:40→19:55)
[2023-07-19] MEDS: NEURONTIN 600 MG PO ×3 (08:40→21:08)
[2023-07-19] MEDS: TOPROL XL 25 MG PO (08:55)
[2023-07-19] MEDS: LASIX 40 MG IV ×2 (08:56→17:02)
[2023-07-19 09:17] LABS: Blood Urea Nitrogen 28 mg/dl (9-20); Calcium 8.8 mg/dl (8.4-10.2); Carbon Dioxide 30 mmol/L (22-30); Chloride 99 mmol/L (98-107); Estimated Creatinine Clearance 63 ml/min; Glucose 66 mg/dl (70-99); Magnesium 2.3 mg/dl (1.6-2.3); Phosphorus 3.3 mg/dl (2.5-4.5); Potassium 3.8 mmol/L (3.5-5.1); Sodium 134 mmol/L (135-145); eGFR > 60.00
--- NOTE | 2023-07-19 09:31 | W.PN.PUL3 ---
Today's Communication / Plan
-
ABx as per ID
Up OOB as tolerated
Encourage incentive spirometer
Quantify hemoptysis by keeping disposable at bedside
If hemoptysis worsens then will need to hold Eliquis
Repeat imaging in 4 to 6 weeks to follow pneumonia to resolution
He last saw us in [address] Kaba - will arrange for follow up s/p discharge.
Assessment
-
Assessment: 83-year-old male with a past medical history of laryngeal cancer s/p laryngectomy, history of colon cancer s/p colon resection, former tobacco use disorder, ED, BPH with LUTS, paroxysmal A-fib on Eliquis, and CAD who presents with
bilateral lower extremity pain with swelling/leakage from right marie. Symptoms started 1 day [employer] and he also endorsed SOB with exertion. BP elevated in the ER to 190/110, heart rate 60, breathing at 16 breaths/min, afebrile to 98 �F and he was
saturating 95% on room air. Labs showed leukocytosis to 16, Hb 11.8, BUN elevated at 33, troponin 1.105, proBNP elevated at 2080, serum albumin low at 2.3, blood cultures were collected, and CXR showed severe left lower lobe pneumonia and mild RAS
pneumonia with a small left-sided parapneumonic effusion. Of note, lower extremity DVT study is negative. There is severe diffuse subcutaneous edema seen throughout both legs. Patient developed hemoptysis, and his Eliquis is now on hold with last
dose on morning of 07/18/2023. Of note, in the ER he was given Lasix and cefepime. Antibiotics were continued with cefepime on the floor. He also was given IV Lasix given concern for acute heart failure. Given his hemoptysis with severe
left-sided pneumonia, pulmonary now consulted for additional recommendations/management.
Chronic conditions [employer]PECT[employer]ES: History of laryngeal cancer (diagnosed 1993) s/p laryngectomy, history of colon cancer s/p colon resection (diagnosed 2004), former tobacco use disorder (quit 1983 with [id number] history), hyperlipidemia, ED, BPH with
LUTS, paroxysmal A-fib on Eliquis, history of multinodular goiter, hypertension, CAD
Impression:
#Left-sided CAP due to MRSA
#Left-sided parapneumonic effusion
#Non-life threatening hemoptysis - patient says that whenever he gets an 'infection' in his stoma, he develops bloody cough - this is not unusual for him
#Laryngitis/tracheitis
#Acute decompensated heart failure/acute HFpEF with stage II diastolic dysfunction
#Elevated troponin - peaked at 0.116 on 07/16/2023
#Leukocytosis -due to CAP as above
#Anemia
#Hypoglycemia - 67 this AM on BMP
#Paroxysmal atrial fibrillation on Eliquis
Plan:
- Continue with antibiotics as per ID - was previously on Ancef and Doxy --> now on zyvox
- Sputum Cx from 07/15 growing MRSA
- Maintain SpO2 >90-94% with supplemental O2 as needed
- It appears he is in the middle of a prednisone taper --> continue this and wean off as tolerated
- Incentive spirometer
- Mucolytics with mucinex
- prn nebulized bronchodilators
- Replete electrolytes with K>4, Mg>2
- Heart rate control with goal HR<110bpm
- Maintain MAP>65
- No need to continue trending troponin given it peaked already 3 days ago
- Maintain euglycemia with goal BG >100 and <180
- Transfuse blood products as needed to maintain Hb>7g/dL and plt>50k
- DVT ppx: Eliquis, assuming his hemoptysis is mild; he told me that having bloody phlegm is not unusual for him kaylen when he gets an infection in his throat. I advised him that if the hemoptysis worsens that we will need to stop the Eliquis.
Pulmonary service will continue to follow along.
Total time spent today was 35 minutes for this encounter. Time includes reviewing laboratory test/imaging results, reviewing pertinent medical records, obtaining and reviewing medical history, performing an appropriate exam, ordering medications,
tests and procedures. Time also includes documentation of this encounter, coordinating patient care and communicating with other healthcare professionals. Total time does not include separately billed tests performed on this date of service.
Data:
CXR 07-16-2023:
1. SEVERE LEFT LOWER LOBE PNEUMONIA.
2. Mild left upper lobe pneumonia.
3. Small left parapneumonic pleural effusion.
4. Severe calcific atherosclerotic plaque in the coronary arteries.
5. Diffuse bone demineralization.
TTE 07-17-2023:
Normal left ventricular chamber size. Normal left ventricular systolic
function. Left ventricular ejection fraction is 55-60% by volumetric
assessment. Normal regional wall motion. Mild concentric left ventricular
hypertrophy. Stage II diastolic dysfunction suggestive of abnormal relaxation
and increased filling pressures.
Mild mitral leaflet thickening. Mitral valve opens normally. Mild mitral
regurgitation.
Indexed LA volume is mildly abnormal (35-41 mL/m2).
Trileaflet aortic valve. Aortic valve opens normally. Mild aortic
regurgitation.
Tricuspid valve opens normally. Moderate to severe tricuspid regurgitation.
Estimated pulmonary artery pressure of 45 mmHg assuming a right atrial pressure
of 3 mmHg.
Since echocardiogram 11/23/2022, there is no significant change.
Subjective Data
-
Date of Service:
Date of Service: July 19, 2023
Chief Complaint: Pulmonary Follow Up
Subjective:
Patient seen today at bedside. Sitting in chair eating, in NAD. Coughing up blood still today but not any more than he has had in the past, as per patient. Per nurse, patient had about 3�4 episodes today. Says that shortness of breath is okay
and he is breathing comfortably on room air. Denies chest pain, headache, abdominal pain, fevers or chills.
Review of Systems
General: Other (Negative unless mentioned above)
Objective Data
Data Reviewed
Vital Signs / I&O / Oxygen:
Vital Signs
Temp Pulse Resp BP Pulse Ox
98.1 F 66 18 103/60 95
07/19/23 08:08 07/19/23 08:55 07/19/23 08:08 07/19/23 08:55 07/19/23 08:08
Intake and Output
07/18/23 07/19/23 07/20/23
06:59 06:59 06:59
Intake Total 1200 / 1200 1020 / 1020
Output Total 2275 / 2275 3800 / 3800
Balance -1075 / -1075 -2780 / -2780
SaO2 95
Physical Exam
General: Comfortable
HEENT: Normocephalic, Anicteric and Other (No bleeding seen from tracheal stoma)
Cardiovascular: Irregular Rhythm, Peripheral Edema (+1 lower extremity edema) and Other (Normal rate)
Respiratory: Wheeze (Negative), Crackles (Left hemithorax) and Rhonchi (Negative)
GI: Soft, Non Distended, Non Tender and Normal Bowel Sounds
Neurology: Awake and Alert
Skin: Warm and Dry
Labs/Micro/Reports
Lab Data
07/19/23 06:53
07/19/23 06:53
Microbiology
07/16/23 23:04 Tracheal Site Respiratory Culture - Final
Staph aureus MRSA
07/16/23 23:04 Tracheal Site Gram Stain - Final
07/16/23 18:14 Blood/Venous Blood Culture - Preliminary
No Growth in 48 hours- Final report to follow
07/16/23 18:14 Blood/Venous Blood Culture - Preliminary
No Growth in 48 hours- Final report to follow
--- NOTE | 2023-07-19 11:11 | W.PN.ID1 ---
Date of Service
Date of Service: July 19, 2023
Today's Communication
DC cefazolin and doxycycline.
Start po Linezolid 600mg po bid,
Assessment / Plan
# L CAP with MRSA; hemoptysis
# Leukocytosis resolved
# Acute on chronic CHF
# Remote h/o laryngeal ca s/p laryngectomy
- sputum cx: MRSA, resistant to doxycycline
- DC cefazolin and doxycycline.
- Start po Linezolid 600mg po bid, then transition to outpatient Bactrim DS 1 tab po bid.
-Contact precaution.
#Additional Past Medical History:
Paroxysmal Atrial Fibrillation
Chronic HFpEF
Coronary Artery Disease
Essential Hypertension
Hyperlipidemia
Laryngeal Cancer s/p Laryngectomy with Tracheostomy
Colon Cancer s/p colectomy
Right posterior scalp shingles with PHN
cholecystectomy
Chief Complaint
-: Pneumonia
Subjective / Review of Systems
Coughed up thick sputum into cup. Sputum thick grayish color with blood clot.
Vital Signs / Physical Exam
Vital Signs
Vital Signs
Temp Pulse Resp BP Pulse Ox
98.1 F 66 18 103/60 95
07/19/23 08:08 07/19/23 08:55 07/19/23 08:08 07/19/23 08:55 07/19/23 08:08
Physical Exam
Constitutional: No Acute Distress
Cardiovascular: Regular Rate and S1/S2
Pulmonary: Coarse (left base)
Extremities: Edema (decreasing edema)
Objective Data
Lab Data
Lab Results
07/19/23 06:53
07/19/23 06:53
PT 17.3 Sec (11.4-14.6) H 07/16/23 15:15
INR 1.43 07/16/23 15:15
Estimated Creat Clear 63 ml/min 07/19/23 06:53
Lactic Acid 0.9 mmol/L (0.7-2.0) 07/16/23 18:14
Total Bilirubin 0.7 mg/dl (0.2-1.3) 07/16/23 15:15
AST 45 U/L (17-59) 07/16/23 15:15
ALT 42 U/L (0-50) 07/16/23 15:15
Alkaline Phosphatase 100 U/L (38-126) 07/16/23 15:15
Most recent labs reviewed.
Micro Results:
07/16/23 23:04 Respiratory Culture - Final
Tracheal Site Staph aureus MRSA
Gram Stain - Final
07/16/23 18:14 Blood Culture - Preliminary
Blood/Venous No Growth in 48 hours- Final report to follow
07/16/23 18:14 Blood Culture - Preliminary
Blood/Venous No Growth in 48 hours- Final report to follow
07/16/23 CXR: SEVERE LEFT LOWER LOBE PNEUMONIA. Mild left upper lobe pneumonia. Small left parapneumonic pleural effusion.
[2023-07-19] MEDS: ZYVOX 600 MG PO ×2 (11:18→19:56)
--- NOTE | 2023-07-19 11:53 | W.PN.CARDCBS ---
Today's Communication / Plan
-
Will transition IV to oral Lasix
Look into the cost of SGLT2 inhibitor
PT consult
Impression / Plan
-
Primary Hearing Health Technician: Dr. Giles
Assessment:
Presentation with VILLELA, LE edema
Acute on chronic HFpEF
Nonischemic myocardial injury, peak troponin 0.116
Recent shingles, right side of head
Paroxysmal atrial fibrillation/atrial flutter diagnosed 10/2022
s/p CV 12/28/22
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
History of colon cancer in 2004 status post partial colectomy
Amaurosis fugax
Dyslipidemia
Moderate CAD noted on CT of the chest
History of pulmonary nodules
ECHO 12/13/2021: EF 50 to 55%, trace MR, mild AR, trace TR, PAP 40 to 45 mmHg, trace MI
Echocardiogram 11/23/2022: EF 55-60%, mild LVH.� Increased filling pressures, normal dilated left atrium, mild aortic regurgitation, moderate tricuspid regurgitation, pulmonary artery systolic pressure 35-40 mmHg, trace mitral regurgitation
Lexiscan nuclear stress test 04/27/2022: Normal sestamibi perfusion imaging, EF 60%
Echocardiogram 07/17/2023: Ejection fraction 55 to 60%, mild concentric LVH, mild MR, mild AI, moderate to severe TR with PA systolic of 45 mmHg
Plan:
Acute on chronic heart failure with preserved ejection fraction
-Initial proBNP 2079
-Volume status is improving
-We will continue IV Lasix today and transition to oral Lasix tomorrow
-Weight is 138 pounds today.
-Transition to Lasix 40 mg twice daily 07/20/23
-Have reached out to ID regarding initiation of SGLT2 inhibitor given pneumonia: Per ID no contraindication to starting SGLT2 inhibitor. Will ask case management to assess cost of Jardiance 10 mg daily versus Farxiga 10 mg daily. If unable to
initiate SGLT2 inhibitor due to cost, will increase Lasix to 60 mg twice daily at time of discharge
-Echocardiogram unchanged
History of paroxysmal atrial fibrillation/flutter status post cardioversion 12/28/2022
-Telemetry reviewed. Maintaining sinus rhythm on Toprol, amiodarone. Continue uninterrupted anticoagulation with Eliquis
-PT consult as patient is concerned about balance
-Left CAP with MRSA with resolved hemoptysis.
-Infectious disease treating for pneumonia
-Antibiotics per ID
Recent right scalp shingles, healed
Progress Note - Hearing Health Technician
Subjective
Date of Service: July 19, 2023
Seen and examined sitting out of bed to chair. Overall states he feels better still with cough with sputum production. No hemoptysis. Weight and edema overall improved.
Objective
Labs:
07/19/23 06:53
07/19/23 06:53
Labs
Hgb 12.5 g/dL (13.0-18.0) L 07/19/23 06:53
Hct 39.2 % (39.0-52.0) 07/19/23 06:53
Plt Count 224 10^3/uL (130-400) 07/19/23 06:53
PT 17.3 Sec (11.4-14.6) H 07/16/23 15:15
INR 1.43 07/16/23 15:15
Sodium 134 mmol/L (135-145) L 07/19/23 06:53
Potassium 3.8 mmol/L (3.5-5.1) 07/19/23 06:53
BUN 28 mg/dl (9-20) H 07/19/23 06:53
Creatinine 0.8 mg/dL (0.7-1.3) 07/19/23 06:53
Glucose 66 mg/dl (70-99) L 07/19/23 06:53
Troponins
07/16/23 07/16/23 07/17/23
15:15 20:56 03:08
Troponin I 0.105 H* 0.116 H* 0.092 H*
Vital Signs and I&O:
Vital Signs
Temp Pulse Resp BP Pulse Ox
98.1 F 66 18 103/60 95
07/19/23 08:08 07/19/23 08:55 07/19/23 08:08 07/19/23 08:55 07/19/23 08:08
Vital Signs
Temp Pulse Resp BP Pulse Ox
98.1 F 66 18 103/60 95
07/19/23 08:08 07/19/23 08:55 07/19/23 08:08 07/19/23 08:55 07/19/23 08:08
Intake & Output
07/17/23 07/18/23 07/19/23 07/20/23
06:59 06:59 06:59 06:59
Intake Total 360 / 360 1200 / 1200 1020 / 1020
Output Total 1000 / 1000 2275 / 2275 3800 / 3800
Balance -640 / -640 -1075 / -1075 -2780 / -2780
Physical Exam
Physical Exam
General: Well developed, well nourished in NAD.
HEENT: History of laryngectomy with stoma. Mucous membranes moist
Heart: Regular, positive S1-S2. 2/6 SM
Lungs: Bronchovesicular breath sounds with scattered rhonchi
Extremities: Bilateral lower extremities wrapped in Sammy bandages. Trace edema..
Neuro: Grossly nonfocal, awake, alert and oriented x3.
--- NOTE | 2023-07-19 16:41 | CM ---
Called insurance spoke with Delores Castellano cost will be $[address] morales aware.
Pt consented to [facility] [place] [facility]. Cassi TT referral.
He said family can drive him [place] [facility].
PLAN Home with [facility]
[2023-07-19] MEDS: CRESTOR 10 MG PO (17:02)
--- NOTE | 2023-07-19 22:42 | PTCARENOTE ---
Patient transferred to [address] [place] [id number]. All belonging with patient. Report given to his nurse.
[2023-07-20 00:48] VITALS: BP 108/64
[2023-07-20 03:15] VITALS: BP 112/58
[2023-07-20] MEDS: EMLA CREAM 1 GRAM TOPICAL (05:20)
[2023-07-20 06:00] VITALS: BMI 23.0
[2023-07-20 06:06] LABS: Hematocrit 41.1 % (39.0-52.0); Hemoglobin 13.6 g/dL (13.0-18.0); Mean Corp Hgb Conc. 33.1 g/dL (33.0-37.0); Mean Corpuscular Hgb 29.5 pg (27.0-31.0); Mean Corpuscular Volume 89.2 fL (80.0-94.0); Mean Platelet Volume 9.5 fL (7.4-10.4); Platelet Count 217 10^3/uL (130-400); Red Blood Cell Count 4.61 10^6/uL (4.70-6.10); Red Cell Dist. Width 14.9 % (11.5-14.5); White Blood Cell Count 9.4 10^3/uL (4.8-10.8)
[2023-07-20 06:34] LABS: Blood Urea Nitrogen 24 mg/dl (9-20); Calcium 8.5 mg/dl (8.4-10.2); Carbon Dioxide 33 mmol/L (22-30); Chloride 101 mmol/L (98-107); Estimated Creatinine Clearance 63 ml/min; Glucose 76 mg/dl (70-99); Potassium 3.9 mmol/L (3.5-5.1); Sodium 133 mmol/L (135-145); eGFR > 60.00
--- NOTE | 2023-07-20 07:44 | PTCARENOTE ---
Patient arrived on unit @2230 via wheelchair, ambulate from wheelchair to bed. Patient AAOx3, skin assessment completed, oriented to unit, call waite within reach.
[2023-07-20 08:28] VITALS: BP 108/64
[2023-07-20] MEDS: SENOKOT-S 1 TABLET PO (08:31)
[2023-07-20] MEDS: ELIQUIS 5 MG PO (08:31)
[2023-07-20] MEDS: DELTASONE 10 MG PO (08:31)
[2023-07-20] MEDS: NEURONTIN 600 MG PO ×2 (08:31→16:22)
[2023-07-20] MEDS: LASIX 40 MG PO ×2 (08:31→16:26)
[2023-07-20] MEDS: MIRALAX 17 GRAMS PO (08:31)
[2023-07-20] MEDS: MUCINEX 600 MG PO (08:32)
[2023-07-20] MEDS: ZYVOX 600 MG PO (08:32)
[2023-07-20] MEDS: TOPROL XL 25 MG PO (08:33)
[2023-07-20] MEDS: PACERONE 200 MG PO (08:33)
--- NOTE | 2023-07-20 09:36 | W.PN.HOSP.TC ---
Addendum entered and electronically signed by Roberto Simmons MD 07/22/23 18:40:
mild hyponatremia not significant
Original Note:
Today's Communication/Plan
-
discharge
Assessment / Plan
Assessment / Plan
Physical Exam
General: No pallor, cyanosis, or jaundice.
HEENT: Throat clear. PERRLA Normocephalic atraumatic
NECK: Supple. No Carotid Bruits, Stoma present
RESPIRATORY: Lungs clear to auscultation. No crackles wheezes stridor
CVS: S1, S2 normal. RRR.� No murmur, rub or gallop.
ABDOMEN: Soft, non-tender. No distension. BS+/normal.
EXTREMITIES: lower ext's MARISA compressive wrapping in place clean dry intact.
FORMING ACID DUMPER: Aox3
83M A-fib, CHF, CAD, laryngeal cancer s/p laryngectomy recent shingles affecting right sided of head, resolving on steroid taper, p/w increased shortness of breath, lower extremity edema and weeping from legs, progressive exertional dyspnea, �past
two weeks. SOB especially worsening over past few days. �Patient was prescribed Levaquin by his PCP which he took for 3 days without significant resolution of symptoms. Denies fevers, sweats or chills.� CXR suggestive of Left Lower PNA.� BNP and
troponin elevation noted.� Chest Pain free.
Left-Sided Pneumonia
-sputum cx positive for MRSA, Blood Cx's NGTD
-Consult Infectious Disease appreciated empiric Cefipime narrowed to cefazolin, doxycycline added, both discontinued in favor of oral linezolid (MRSA resistant to doxycycline) patient to transition to Bactrim DS 1 tab po BID 7 days on discharge
Persistent Hemoptysis, resolving
-Quantify
-monitor H&H, stable
-Pulm eval appreciated ok to cont home Eliquis, repeat imaging in 4-6 weeks and outpatient Pulm follow up recommended.
Acute on Chronic HFpEF
-Echo appreciated EF 55-60%. Mild concentric left ventricular hypertrophy. Stage II diastolic dysfunction. Mod to severe tricuspid regurgitation, no significant change to prior ECHO Oct 2022
-Monitor Is&Os and Daily Weights
-Cardio eval appreciated Lasix 40mg IV BID transitioned to PO, increased to 60 mg BID on discharge, possible start Jardiance in cardio follow up
Non-Ischemic Myocardial Injury
-troponin peaked 0.116 since trended down, chest pain free
Recent Right Facial Shingles with Post-Herpetic Neuralgia
-Continue gabapentin
-Suspect prednisone is contributing his fluid retention - Weaning off prednisone,
-prednisone 20 mg daily x2 days then 10 mg daily x2 days then stop last day of steroids today 07/19
-Emla cream prn
Paroxysmal Atrial Fibrillation
-Continue Eliquis for anticoagulation
-Continue amiodarone and metoprolol for rate/rhythm control
Intermittent Leg Cramping on ambulation
Likely PAD
lower ext arterial study MILO appreciated possible Infrapopliteal artery disease present bilateral noted.
Symptoms improving with physical therapy and exercise education provided by PT
cont conservative mgmt, outpatient follow up with vascular recommended.
Essential Hypertension
-Continue metoprolol
Hyperlipidemia
-Continue Crestor
Laryngeal Cancer s/p Laryngectomy and Tracheostomy
Colon Cancer s/p Colon Resection
DVT proph: Eliquis
Code Status: Full Code
PT/OT appreciated Home PT vs no needs
Medically stable for discharge home with home services and outpatient follow up recommendations.
discussed with patient at bedside and patient's son over phone
Total Time Preparing Discharge __50 minutes including examination of the patient, summary of the hospital stay, instructions for continuing care to all relevant caregivers; and preparation of discharge records, prescriptions, and referral
forms if necessary.
Anticipated Discharge: Today
Subjective/Interval History
-
Date of Service: July 20, 2023
Seen and examined at bedside in no acute distress sitting up comfortably in bed. Reports overall feeling well. Denies new acute issues at this time.
Objective Data
-
Labs:
Laboratory Results
07/20/23
05:38
WBC 9.4
Hgb 13.6
Hct 41.1
Plt Count 217
Sodium 133 L
Potassium 3.9
Chloride 101
Carbon Dioxide 33 H
BUN 24 H
Creatinine 0.8
Glucose 76
Calcium 8.5
Vital Signs:
Vital Signs
Temp Pulse Resp BP Pulse Ox
98.1 F 67 16 108/64 98
07/20/23 08:28 07/20/23 08:28 07/20/23 08:28 07/20/23 08:28 07/20/23 08:28
I&O
07/19/23 07/20/23 07/21/23
06:59 06:59 06:59
Intake Total 1020 / 1020 1140 / 1140
Output Total 3800 / 3800 1450 / 1450
Balance -2780 / -2780 -310 / -310
--- NOTE | 2023-07-20 09:40 | W.PN.PUL3 ---
Today's Communication / Plan
-
ABx as per ID
Up OOB as tolerated
Encourage incentive spirometer
Quantify hemoptysis by keeping disposable at bedside
Repeat imaging in 4 to 6 weeks to follow pneumonia to resolution
He last saw us in [address] Kaba - will arrange for follow up s/p discharge.
Patient being prepared for DC home. Pulmonary service will now sign off. Please reconsult if there are any additional questions/concerns, of if pt's resp status deteriorates
Assessment
-
Assessment: 83-year-old male with a past medical history of laryngeal cancer s/p laryngectomy, history of colon cancer s/p colon resection, former tobacco use disorder, ED, BPH with LUTS, paroxysmal A-fib on Eliquis, and CAD who presents with
bilateral lower extremity pain with swelling/leakage from right marie. 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 BP elevated in the ER to 190/110, heart rate 60, breathing at 16 breaths/min, afebrile to 98 �F and he was
saturating 95% on room air. Labs showed leukocytosis to 16, Hb 11.8, BUN elevated at 33, troponin 1.105, proBNP elevated at 2080, serum albumin low at 2.3, blood cultures were collected, and CXR showed severe left lower lobe pneumonia and mild RAS
pneumonia with a small left-sided parapneumonic effusion. Of note, lower extremity DVT study is negative. There is severe diffuse subcutaneous edema seen throughout both legs. Patient developed hemoptysis, and his Eliquis is now on hold with last
dose on morning of 07/18/2023. Of note, in the ER he was given Lasix and cefepime. Antibiotics were continued with cefepime on the floor. He also was given IV Lasix given concern for acute heart failure. Given his hemoptysis with severe
left-sided pneumonia, pulmonary now consulted for additional recommendations/management.
Chronic conditions RESIDENCY COORDINATOR: History of laryngeal cancer (diagnosed 1993) s/p laryngectomy, history of colon cancer s/p colon resection (diagnosed 2004), former tobacco use disorder (quit 1983 with [id number] history), hyperlipidemia, ED, BPH with
LUTS, paroxysmal A-fib on Eliquis, history of multinodular goiter, hypertension, CAD
Impression:
#Left-sided CAP due to MRSA
#Left-sided parapneumonic effusion
#Non-life threatening hemoptysis - patient says that whenever he gets an 'infection' in his stoma, he develops bloody cough - this is not unusual for him
#Laryngitis/tracheitis
#Acute decompensated heart failure/acute HFpEF with stage II diastolic dysfunction
#Elevated troponin - peaked at 0.116 on 07/16/2023
#Leukocytosis -due to CAP as above - WBC now normal
#Anemia
#Hypoglycemia - 76 this AM on BMP
#Paroxysmal atrial fibrillation on Eliquis
Plan:
- Continue with antibiotics as per ID - was previously on Ancef and Doxy --> now on zyvox
- Sputum Cx from 07/15 growing MRSA
- Maintain SpO2 >90-94% with supplemental O2 as needed
- It appears he is in the middle of a prednisone taper --> continue this and wean off as tolerated
- Incentive spirometer
- Mucolytics with mucinex
- prn nebulized bronchodilators
- Replete electrolytes with K>4, Mg>2
- Heart rate control with goal HR<110bpm
- Maintain MAP>65
- No need to continue trending troponin given it peaked already 4 days ago
- Maintain euglycemia with goal BG >100 and <180
- Transfuse blood products as needed to maintain Hb>7g/dL and plt>50k
- DVT ppx: Eliquis, assuming his hemoptysis is mild; he told me that having bloody phlegm is not unusual for him kaylen when he gets an infection in his throat. I advised him that if the hemoptysis worsens that we will need to stop the Eliquis.
Patient being preapred for DC home. Pulmonary service will now sign off. Thank you for allowing us to be involved in the care of this patient. Please reconsult if there are any additional questions/concerns, of if pt's resp status deteriorates.
Total time spent today was 35 minutes for this encounter. Time includes reviewing laboratory test/imaging results, reviewing pertinent medical records, obtaining and reviewing medical history, performing an appropriate exam, ordering medications,
tests and procedures. Time also includes documentation of this encounter, coordinating patient care and communicating with other healthcare professionals. Total time does not include separately billed tests performed on this date of service.
Data:
CXR 07-16-2023:
1. SEVERE LEFT LOWER LOBE PNEUMONIA.
2. Mild left upper lobe pneumonia.
3. Small left parapneumonic pleural effusion.
4. Severe calcific atherosclerotic plaque in the coronary arteries.
5. Diffuse bone demineralization.
TTE 07-17-2023:
Normal left ventricular chamber size. Normal left ventricular systolic
function. Left ventricular ejection fraction is 55-60% by volumetric
assessment. Normal regional wall motion. Mild concentric left ventricular
hypertrophy. Stage II diastolic dysfunction suggestive of abnormal relaxation
and increased filling pressures.
Mild mitral leaflet thickening. Mitral valve opens normally. Mild mitral
regurgitation.
Indexed LA volume is mildly abnormal (35-41 mL/m2).
Trileaflet aortic valve. Aortic valve opens normally. Mild aortic
regurgitation.
Tricuspid valve opens normally. Moderate to severe tricuspid regurgitation.
Estimated pulmonary artery pressure of 45 mmHg assuming a right atrial pressure
of 3 mmHg.
Since echocardiogram 11/23/2022, there is no significant change.
Subjective Data
-
Date of Service:
Date of Service: July 20, 2023
Chief Complaint: Pulmonary Follow Up
Subjective:
Pt seen today. He is being discharged home. No issues reported from overnight. No chest pain, abd pain, N/V/f/c.
Review of Systems
General: Other (negative unless mentioned above)
Objective Data
Data Reviewed
Vital Signs / I&O / Oxygen:
Vital Signs
Temp Pulse Resp BP Pulse Ox
98.1 F 67 16 108/64 98
07/20/23 08:28 07/20/23 08:28 07/20/23 08:28 07/20/23 08:28 07/20/23 08:28
Intake and Output
07/19/23 07/20/23 07/21/23
06:59 06:59 06:59
Intake Total 1020 / 1020 1140 / 1140
Output Total 3800 / 3800 1450 / 1450
Balance -2780 / -2780 -310 / -310
SaO2 98
Physical Exam
General: Comfortable
HEENT: Normocephalic, Anicteric and Other (No bleeding seen from tracheal stoma)
Cardiovascular: Irregular Rhythm, Peripheral Edema (+1 lower extremity edema) and Other (Normal rate)
Respiratory: Wheeze (Negative), Crackles (Left hemithorax) and Rhonchi (Negative)
GI: Soft, Non Distended, Non Tender and Normal Bowel Sounds
Neurology: Awake and Alert
Skin: Warm and Dry
Labs/Micro/Reports
Lab Data
07/20/23 05:38
07/20/23 05:38
Microbiology
07/16/23 18:14 Blood/Venous Blood Culture - Preliminary
No Growth in 72 hours- Final report to follow
07/16/23 18:14 Blood/Venous Blood Culture - Preliminary
No Growth in 72 hours- Final report to follow
07/16/23 23:04 Tracheal Site Respiratory Culture - Final
Staph aureus MRSA
07/16/23 23:04 Tracheal Site Gram Stain - Final
--- NOTE | 2023-07-20 09:42 | CM ---
Patient seen at bedside, IMM completed and patient now stating he wants to drive himself home. CM updated nursing and will continue to follow for discharge planning needs.
Plan; home with [facility] to follow
--- NOTE | 2023-07-20 12:27 | PN.CDI ---
CDI
- -
CDI:
Physician Documentation Request
Admit Date: 07/16/23 19:44
Dear Doctor rIis,
Patient admitted for pneumonia.
Laboratory Tests
07/16/23 07/17/23 07/18/23
15:15 06:11 06:38
Sodium 133 L 134 L 133 L
07/19/23 07/20/23
06:53 05:38
Sodium 134 L 133 L
Based on the above, could you clarify in the progress notes, the appropriate diagnosis, if significant, that supports the above abnormalities and additional evaluation, monitoring and/or treatment rendered:
Hyponatremia
Abnormal lab value insignificant
Other
Use of terms such as suspected, likely, concern for, or probable (associated with a specific diagnosis that is being evaluated, monitored, or treated as if it exists) are acceptable and can be coded in the inpatient setting, when documented at the
time of discharge.
Thank you,
Re Ivey RN, BSN
CDI Specialist
Available via [facility] text
Please use your independent medical judgment in providing your response.
--- NOTE | 2023-07-20 12:45 | W.PN.CARDCBS ---
Addendum entered and electronically signed by Valery Giles DO 07/20/23 18:05:
I saw and examined the patient.
The Staff Pharmacist's note was reviewed and I agree with the note.
Comment: Seen and examined. Ambulating in room and anxious for discharge. We discussed discharge medications and plan.
General: AAOx3
HEENT: History of laryngectomy with stoma. Mucous membranes moist
Heart: Regular, positive S1-S2. 2/6 SM
Lungs: Bronchovesicular breath sounds with scattered rhonchi
Extremities: Bilateral lower extremities wrapped in Sammy bandages. Trace edema..
Plan;
Acute on chronic heart failure with preserved ejection fraction
-Initial proBNP 2079
-Volume status is improving
-Weight is 138 pounds today.
-Per discussion with hospitalist given low blood sugars at times will hold on starting Jardiance; can reconsider as an outpatient
-Transitioned to Lasix 40 mg twice daily 07/20/23. Increase to Lasix to 60 mg twice daily at time of discharge as will not be started on SGLT2 inhibitor
-Echocardiogram unchanged
History of paroxysmal atrial fibrillation/flutter status post cardioversion 12/28/2022
-Telemetry reviewed. Maintaining sinus rhythm on Toprol, amiodarone. Continue uninterrupted anticoagulation with Eliquis
-Appreciate PT input. Patient was able to ambulate 200 feet around the unit without balance issues. But did note some discomfort in his calves and was educated on simple exercises to build strength and lower legs.
-Left CAP with MRSA with resolved hemoptysis.
-Infectious disease treating for pneumonia
-Antibiotics per ID; transition po Linezolid 600mg po bid, to outpatient Bactrim DS 1 tab po bid 7 more days (07/20/2023)
Recent right scalp shingles, healed
Original Note:
Today's Communication / Plan
-
Will not start Jardiance
Increase Lasix to 60 mg twice a day
Continue Toprol, amiodarone and Eliquis
Antibiotics per ID
Outpatient cardiology follow-up arranged
Impression / Plan
-
Primary Software Quality Engineer: Dr. Giles
Assessment:
Presentation with VILLELA, LE edema
Acute on chronic HFpEF
Nonischemic myocardial injury, peak troponin 0.116
Recent shingles, right side of head
Paroxysmal atrial fibrillation/atrial flutter diagnosed 10/2022
s/p CV 12/28/22
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
History of colon cancer in 2004 status post partial colectomy
Amaurosis fugax
Dyslipidemia
Moderate CAD noted on CT of the chest
History of pulmonary nodules
ECHO 12/13/2021: EF 50 to 55%, trace MR, mild AR, trace TR, PAP 40 to 45 mmHg, trace MN
Echocardiogram 11/23/2022: EF 55-60%, mild LVH.� Increased filling pressures, normal dilated left atrium, mild aortic regurgitation, moderate tricuspid regurgitation, pulmonary artery systolic pressure 35-40 mmHg, trace mitral regurgitation
Lexiscan nuclear stress test 04/27/2022: Normal sestamibi perfusion imaging, EF 60%
Echocardiogram 07/17/2023: Ejection fraction 55 to 60%, mild concentric LVH, mild MR, mild AI, moderate to severe TR with PA systolic of 45 mmHg
Plan:
Acute on chronic heart failure with preserved ejection fraction
-Initial proBNP 2079
-Volume status is improving
-Weight is 138 pounds today.
-Per discussion with hospitalist given low blood sugars at times will hold on starting Jardiance
-Transitioned to Lasix 40 mg twice daily 07/20/23. Increase to Lasix to 60 mg twice daily at time of discharge as will not be started on SGLT2 inhibitor
-Echocardiogram unchanged
History of paroxysmal atrial fibrillation/flutter status post cardioversion 12/28/2022
-Telemetry reviewed. Maintaining sinus rhythm on Toprol, amiodarone. Continue uninterrupted anticoagulation with Eliquis
-Appreciate PT input. Patient was able to ambulate 200 feet around the unit without balance issues. But did note some discomfort in his calves and was educated on simple exercises to build strength and lower legs.
-Left CAP with MRSA with resolved hemoptysis.
-Infectious disease treating for pneumonia
-Antibiotics per ID; transition po Linezolid 600mg po bid, to outpatient Bactrim DS 1 tab po bid 7 more days (07/20/2023)
Recent right scalp shingles, healed
Progress Note - Software Quality Engineer
Subjective
Date of Service: July 20, 2023
Patient seen and examined. Patient sitting up in bed eating lunch. He reports that he is feeling well.
Objective
Labs:
07/20/23 05:38
07/20/23 05:38
Labs
Hgb 13.6 g/dL (13.0-18.0) 07/20/23 05:38
Hct 41.1 % (39.0-52.0) 07/20/23 05:38
Plt Count 217 10^3/uL (130-400) 07/20/23 05:38
PT 17.3 Sec (11.4-14.6) H 07/16/23 15:15
INR 1.43 07/16/23 15:15
Sodium 133 mmol/L (135-145) L 07/20/23 05:38
Potassium 3.9 mmol/L (3.5-5.1) 07/20/23 05:38
BUN 24 mg/dl (9-20) H 07/20/23 05:38
Creatinine 0.8 mg/dL (0.7-1.3) 07/20/23 05:38
Glucose 76 mg/dl (70-99) 07/20/23 05:38
Vital Signs and I&O:
Vital Signs
Temp Pulse Resp BP Pulse Ox
98.1 F 67 16 108/64 98
07/20/23 08:28 07/20/23 08:28 07/20/23 08:28 07/20/23 08:28 07/20/23 08:28
Vital Signs
Temp Pulse Resp BP Pulse Ox
98.1 F 67 16 108/64 98
07/20/23 08:28 07/20/23 08:28 07/20/23 08:28 07/20/23 08:28 07/20/23 08:28
Intake & Output
07/18/23 07/19/23 07/20/23 07/21/23
06:59 06:59 06:59 06:59
Intake Total 1200 / 1200 1020 / 1020 1140 / 1140
Output Total 2275 / 2275 3800 / 3800 1450 / 1450
Balance -1075 / -1075 -2780 / -2780 -310 / -310
Physical Exam
Physical Exam
GEN: No distress, awake, Ox3
HEENT:History of laryngectomy with stoma; normocephalic atraumatic
LUNGS: few scattered course breath sounds, no wheezes/rales
CV: Reg, S1/S2, 2/6 syst murmur
ABD: soft, BS+, NT/ND
EXT: Legs wrapped in Sammy bandages, trace edema
NEURO: Gross non-focal
SKIN: No rash, warm, dry, pink
--- NOTE | 2023-07-20 13:10 | W.PN.ID1 ---
Date of Service
Date of Service: July 20, 2023
Today's Communication
can transition po Linezolid 600mg po bid, to outpatient Bactrim DS 1 tab po bid 7 more days.
Assessment / Plan
# L CAP with MRSA; hemoptysis
# Leukocytosis resolved
# Acute on chronic CHF
# Remote h/o laryngeal ca s/p laryngectomy
- sputum cx: MRSA, resistant to doxycycline
- can transition po Linezolid 600mg po bid, to outpatient Bactrim DS 1 tab po bid 7 more days.
-Contact precaution.
#Additional Past Medical History:
Paroxysmal Atrial Fibrillation
Chronic HFpEF
Coronary Artery Disease
Essential Hypertension
Hyperlipidemia
Laryngeal Cancer s/p Laryngectomy with Tracheostomy
Colon Cancer s/p colectomy
Right posterior scalp shingles with PHN
cholecystectomy
Chief Complaint
-: Pneumonia
Subjective / Review of Systems
Feels better.
Vital Signs / Physical Exam
Vital Signs
Vital Signs
Temp Pulse Resp BP Pulse Ox
98.1 F 67 16 108/64 98
07/20/23 08:28 07/20/23 08:28 07/20/23 08:28 07/20/23 08:28 07/20/23 08:28
Physical Exam
Pulmonary: Other (decreased bs left)
Gastrointestinal: Soft, Non Tender and Non Distended
Objective Data
Lab Data
Lab Results
07/20/23 05:38
07/20/23 05:38
PT 17.3 Sec (11.4-14.6) H 07/16/23 15:15
INR 1.43 07/16/23 15:15
Estimated Creat Clear 63 ml/min 07/20/23 05:38
Lactic Acid 0.9 mmol/L (0.7-2.0) 07/16/23 18:14
Total Bilirubin 0.7 mg/dl (0.2-1.3) 07/16/23 15:15
AST 45 U/L (17-59) 07/16/23 15:15
ALT 42 U/L (0-50) 07/16/23 15:15
Alkaline Phosphatase 100 U/L (38-126) 07/16/23 15:15
Most recent labs reviewed.
Micro Results:
07/16/23 18:14 Blood Culture - Preliminary
Blood/Venous No Growth in 72 hours- Final report to follow
07/16/23 18:14 Blood Culture - Preliminary
Blood/Venous No Growth in 72 hours- Final report to follow
07/16/23 23:04 Respiratory Culture - Final
Tracheal Site Staph aureus MRSA
Gram Stain - Final
07/16/23 CXR: SEVERE LEFT LOWER LOBE PNEUMONIA. Mild left upper lobe pneumonia. Small left parapneumonic pleural effusion.
Care Review
Plan reviewed with: Physician (Dr. Simmons)
--- NOTE | 2023-07-20 14:43 | W.HF.CON ---
Heart Failure
- LV Function
Left ventricular function study result: LV Ejection fraction >40%
Ejection Fraction Percentage: 55-60
- ARNI
Patient already on ARNI: No
Heart Failure ARNI Not Indicated: LV Ejection Fraction >/= 40%
- ACEI/ARB
Patient already on ACEI/ARB: No
Heart Failure ACEI/ARB Not Indicated: LV Ejection Fraction > 40%
- Beta Alexi
Patient already on Evidence Based Beta Alexi: Yes
- Mineralocorticord Receptor Antagonist
Patient already on MRA: No
Heart Failure MRA Not Indicated: LV Ejection Fraction > 40%
- SGLT-2 Inhibitor
Patient already on SGLT-2 Inhibitor: No
Heart Failure SGLT-2 Inhibitor Not Indicated: LV Ejection Fraction >40%
- Afib Anticoagulation
Patient already on Anticoagulation for Afib: Yes
- NYHA CHF Classification
NYHA CHF Classification Level: Class III - Symptoms w/ min exertion, interferes w/ nml daily activity
- ACC/AHA Stage
ACC/AHA Stage: Stage C: Symptomatic Heart Failure
--- NOTE | 2023-07-20 15:40 | VNURNOTE ---
Home Health Liaison met with patient at 1500 to discuss [facility] nurse/therapy, visits, schedule and homebound status. Patient is easily frustrated by difficult communication. He is agreeable and understands that visits at home will be 2-3 x per week to
assess and teach medical management. Patient has a scale and is able to log a daily weight.
[facility] brochure provided with contact information. Patient is aware that [facility] will contact him for start of care in 1-2 days after discharge from .
[facility] referral completed in [facility].
[2023-07-20 16:24] VITALS: BP 108/62
--- NOTE | 2023-07-20 16:54 | W.DCSUMMARY ---
Discharge Summary
Discharge Data
Date of Admission: 07/16/23
Date of Discharge: 07/20/23
-
Pending Results: Yes
Additional Pending Results:
official blood culture results
Hospital Course
83M afib, CHF, CAD, laryngeal cancer s/p laryngectomy recent shingles affecting right sided of head, resolving on steroid taper, p/w increased shortness of breath, lower extremity edema and weeping from legs, progressive exertional dyspnea, �past
two weeks. SOB especially worsening over past few days. �Patient was prescribed Levaquin by his PCP which he took for 3 days without significant resolution of symptoms. Denied fevers, sweats or chills.� CXR suggestive of Left Lower PNA.� BNP and
troponin elevation noted.� Chest Pain free. Left-Sided Pneumonia, sputum cx positive for MRSA, Blood Cx's NGTD. Consult Infectious Disease appreciated empiric Cefipime narrowed to cefazolin, doxycycline added, both discontinued in favor of oral
linezolid (MRSA resistant to doxycycline). Patient transitioned to Bactrim DS 1 tab po BID 7 days on discharge. Persistent Hemoptysis, resolving, H&H stable. Pulm eval appreciated ok to cont home Eliquis, repeat imaging in 4-6 weeks and
outpatient Pulm follow up recommended. Acute on Chronic HFpEF. ECHO appreciated EF 55-60%. Mild concentric left ventricular hypertrophy. Stage II diastolic dysfunction. Mod to severe tricuspid regurgitation, no significant change to prior ECHO Aug
2022. Cardio evaluated and recommended Lasix 40mg IV BID transitioned to PO, increased to 60 mg BID on discharge, possible outpt start Jardiance in cardio follow up. Non-Ischemic Myocardial Injury, troponin peaked 0.116 since trended down, chest
pain free. Recent Right Facial Shingles with Post-Herpetic Neuralgia, home gabapentin was continued, suspected prednisone taper for shingles was contributing to his fluid retention. Weaning off, prednisone taper was completed 07/19. Intermittent
Leg Cramping on ambulation, likely PAD, lower ext arterial study MILO appreciated possible Infrapopliteal artery disease present bilateral noted. Symptoms improved with physical therapy and exercise education provided by PT. Conservative mgmt
recommended, outpatient follow up with vascular was also recommended. Medically stable, patient was discharged home with home services and outpatient follow up recommendations.
Discharge Plan
-
Patient Disposition: Home with Home Care
Discharge Diagnosis/Procedures: Pneumonia caused by MRSA (methicillin resistance Staph aureus a type of bacteria with antibiotic resistance) Acute on Chronic Heart Failure with Preserved Ejection Fraction, recent right side head Shingles, paroxysmal
atrial fibrillation, remote history layngeal cancer status post resection tracheostomy with speaking valve, history colon cancer partial colectomy, hyperlipidemia, coronary artery disease, Non-life threatening hemoptysis, Intermittent Claudication
likely Peripheral Arterial Disease
Condition: Fair
Diet: Low Cholesterol and 2 Gram Sodium
Activity: As tolerated
Driving Restrictions: As prior to admission
Bathing Restrictions: None
Blood Work: Please obtain CBC and BMP with primary care provider in 1 week of discharge.
Others Tests: Repeat Chest X-ray with primary care provider in 4-6 weeks to follow up resolution Pneumonia
Other Services: VN, PT and OT
Specialty Instructions: Weigh Daily- Call MD for wt gain/loss 3 lbs overnight/5 lbs in 1 week
Activity Restrictions/Additional Instructions:
Please follow up with primary care provider in 1 week of discharge, keep your appointment with cardiology, follow up with Pulmonology in 4-6 weeks of discharge, and Vascular Surgeon in 1 month of discharge.
rosuvastatin 10 mg tablet (Crestor) 10 mg PO QPM High Cholesterol
apixaban 5 mg tablet (Eliquis) 5 mg PO BID for atrial fibrillation
guaifenesin 600 mg tablet, extended release 12 hr 600 mg PO Q12 for cough
metoprolol succinate 25 mg tablet,extended release 24 hr 25 mg PO DAILY for heart failure and rate control atrial fibrillation
clobetasol 0.05 % lotion 1 applic topical PRN PRN legs eczema/itching
desonide 0.05 % lotion 1 applic topical PRN PRN recent shingles
ketoconazole 2 % shampoo 1 applic topical PRN PRN dandruff/itchy scalp
amiodarone 200 mg tablet (Pacerone) 200 mg PO DAILY for atrial fibrillation
gabapentin 300 mg capsule 600 mg PO TID for Neuropathy
New Medications
furosemide 20 mg tablet (Lasix) 60 mg (3 x 20 mg) PO BID for heart failure (dose increased from home regimen 40 mg twice a day)
sulfamethoxazole 800 mg-trimethoprim 160 mg tablet (Bactrim DS) 1 tab PO BID 7 days for Pneumonia due to MRSA
Prednisone taper for shingles has finished, you do not need to take anymore.
Levofloxacin has been discontinued as you are on Bactrim DS antibiotic instead
Please take medications as prescribed/recommended and follow up with primary care provider and/or other healthcare provider involved in your care for refills and/or further adjustment to your medication regimen as necessary.
Instructions: *[facility] Heart Failure Instructions
Referrals:
Tono Lu MD [Active] - in four to six weeks
Seferino Carbajal PA-C [Family Provider] - in one week
Quique Duggan MD [Active] - in one month
Valery Giles DO [Active] - 07/30/23 11:20 am (You have a cardiology follow-up appointment at the [place] office. Please call with questions)
Prescriptions:
New
furosemide [Lasix] 20 mg tablet
60 mg PO BID 30 Days Qty: 180 0RF
sulfamethoxazole-trimethoprim [Bactrim DS] 800-160 mg tablet
1 tab PO BID 7 Days Qty: 14 0RF
Continued
rosuvastatin [Crestor] 10 mg Tablet
10 mg PO QPM
Eliquis 5 mg Tablet
5 mg PO BID Qty: 60 0RF
guaifenesin 600 mg Tablet Extended Release 12hr
600 mg PO Q12 Qty: 14 0RF
metoprolol succinate 25 mg Tablet Extended Release 24 Hr
25 mg PO DAILY Qty: 30 0RF
ketoconazole 2 % Shampoo
1 applic TOPICAL PRN PRN (Reason: face)
desonide 0.05 % Lotion
1 applic TOPICAL PRN PRN (Reason: face )
clobetasol 0.05 % Lotion
1 applic TOPICAL PRN PRN (Reason: legs)
amiodarone [Pacerone] 200 mg tablet
200 mg PO DAILY
gabapentin 300 mg capsule
600 mg PO TID
Discontinued
prednisone 10 mg tablet
10 mg PO .TAPER
Patient Comments:
07/16/2023: take 6 tabs by mouth for 5 days, then 5 tabs for 5 days, then 4 tabs x 5 days, then 3 tabs x 5 days, then 2 tabs x 5 days, then 1 tab x 5 days
levofloxacin 500 mg Tablet
500 mg PO DAILY
furosemide [Lasix] 40 mg tablet
40 mg PO BID
Discharge Orders:
Discharge Patient (As Directed); Ordered 07/20/23
Ordered By: Roberto Simmons
Discharge Date and Time
Discharge Date/Time: 07/20/23 18:11
Print Language: HUNGARIAN
[2023-07-20] MEDS: CRESTOR 10 MG PO (17:01)
== END 2023-07-20 18:11 | disposition home health service (06) | DRG 177 ==
LOC: 3 WEST ACU 19:44
PROVIDERS: Emergency Medicine; Physician Assistant Medical; ADMITTING PHYSICIAN Internal Medicine; CONSULT PHYSICIAN Internal Medicine Critical Care Medicine; CONSULT PHYSICIAN Internal Medicine Infectious Disease; EMERGENCY PHYSICIAN Emergency Medicine; FAMILY PHYSICIAN Physician Assistant Medical; OTHER PHYSICIAN Internal Medicine Cardiovascular Disease
DX: J15.212 Pneumonia due to Methicillin resistant Staphylococcus aureus (principal); I50.33 Acute on chronic diastolic (congestive) heart failure; B02.29 Other postherpetic nervous system involvement; I48.92 Unspecified atrial flutter; R04.2 Hemoptysis; I5A Non-ischemic myocardial injury (non-traumatic); I11.0 Hypertensive heart disease with heart failure; M79.89 Other specified soft tissue disorders; I48.0 Paroxysmal atrial fibrillation; I25.10 Atherosclerotic heart disease of native coronary artery without angina pectoris; N40.1 Benign prostatic hyperplasia with lower urinary tract symptoms; R60.9 Edema, unspecified; T38.0X5A Adverse effect of glucocorticoids and synthetic analogues, initial encounter; Y92.9 Unspecified place or not applicable; D64.9 Anemia, unspecified; E16.2 Hypoglycemia, unspecified; I07.1 Rheumatic tricuspid insufficiency; I73.9 Peripheral vascular disease, unspecified; K59.00 Constipation, unspecified; J43.9 Emphysema, unspecified; E78.00 Pure hypercholesterolemia, unspecified; R91.8 Other nonspecific abnormal finding of lung field; Z85.21 Personal history of malignant neoplasm of larynx; Z85.038 Personal history of other malignant neoplasm of large intestine; Z87.891 Personal history of nicotine dependence; Z79.01 Long term (current) use of anticoagulants; Z90.49 Acquired absence of other specified parts of digestive tract
CPT/HCPCS: 71046; 80048; 80053; 80061; 83605; 83735; 83880; 84100; 84484; 85025; 85027; 85610; 87040; 87070; 87147; 87186; 87205; 93005; 93306; 93922; 93925; 93970; 96374; 97116; 97162; 97166; 99285

== ENCOUNTER 2023-09-03 23:56 | Inpatient (IN) | payer OTHER, SELFPAY ==
[2023-09-03] VITALS (9 sets, daily range): BP systolic 74–110; BP diastolic 46–66
[2023-09-03 16:55] LABS: % Basophils 0.5 % (0-2); % Eosinophils 1.1 % (0-6); % Immature Granulocytes 0.4 % (0-0.5); % Lymphocytes 22.2 % (20.5-51.1); % Monocytes 9.1 % (1.7-9.3); % Neutrophils 66.7 % (42.2-75.2); Absolute Eosinophils 0.1 10^3/uL (0-0.7); Absolute Lymphocytes 1.8 10^3/uL (1.2-3.4); Absolute Monocytes 0.7 10^3/uL (0.1-0.6); Absolute Neutrophils 5.3 10^3/uL (1.4-6.5); Hemoglobin 9.8 g/dL (13.0-18.0); Mean Corp Hgb Conc. 33.8 g/dL (33.0-37.0); Mean Corpuscular Hgb 27.6 pg (27.0-31.0); Mean Corpuscular Volume 81.7 fL (80.0-94.0); Mean Platelet Volume 9.2 fL (7.4-10.4); Nucleated Red Blood Cells % 0 % (-); Platelet Count 361 10^3/uL (130-400); Red Blood Cell Count 3.55 10^6/uL (4.70-6.10); Red Cell Dist. Width 13.7 % (11.5-14.5); White Blood Cell Count 7.9 10^3/uL (4.8-10.8)
[2023-09-03 17:07] LABS: ALT (SGPT) 18 U/L (0-50); AST (SGOT) 29 U/L (17-59); Albumin 2.2 g/dl (3.5-5.0); Alkaline Phosphatase 140 U/L (38-126); Blood Urea Nitrogen 21 mg/dl (9-20); Calcium 8.6 mg/dl (8.4-10.2); Carbon Dioxide 27 mmol/L (22-30); Chloride 101 mmol/L (98-107); Glucose 105 mg/dl (70-99); Potassium 3.1 mmol/L (3.5-5.1); Sodium 134 mmol/L (135-145); Total Bilirubin 0.5 mg/dl (0.2-1.3); Total Protein 5.4 g/dl (6.3-8.2); eGFR > 60.00
[2023-09-03 17:24] LABS: NT-proBNP 1750 pg/ml; Troponin I 0.087 ng/ml
--- NOTE | 2023-09-03 19:35 | ED.GENMED ---
History of Present Illness
General
Chief Complaint: Weakness
Source: patient
Exam Limitations: none
Time Seen by Provider: 09/03/23 19:13
Travel History
Have you had any contact with someone who has COVID-19?: No
Do you have any symptoms of coronavirus? Fever > 100 degrees, chills, cough, shortness of breath, sore throat, loss of taste or smell, muscle aches, or headache?: No
History of Present Illness
History of Present Illness:
83-year-old male with history of CHF, A-fib on Eliquis, laryngeal cancer presents from home where he lives by himself with progressively worsening generalized fatigue and weight loss. He states since last time he was here which was about a month
ago he lost 12 pounds. He notes swelling in his legs. He notes slight shortness of breath. No chest pain. No abdominal pain. No fever.
Past History
Past History
ED Past Medical History: Arrthythmia (Atrial fibrillation noted during hospitalization October 2022), Cancer (Laryngeal cancer, colon cancer) and Other (Pneumonia)
ED Past Surgical History: Bowel resection, Cholecystectomy, Urological and Other (Tracheostomy/laryngectomy)
Social History
Tobacco: Former smoker
Alcohol: None
Drug: None
Living: alone
Employment: Retired
Family History
Family History: Other (Noncontributory)
Phy Exam
Physical Exam
Physical Exam:
General: Well-appearing male no acute respiratory distress
Heart: Regular rate and rhythm no murmurs
Lungs: Breath sounds distant no obvious rales
Abdomen soft nontender nondistended
Ext: pitting edema bilateral lower extremities.
Skin: Warm, no rashes
Course
Orders/Labs/Results
Orders:
Orders
09/03/23 16:14
Electrocardiogram (*1) Urgent
Reason for Study: Fatigue / Weakness
EKG- Treatment ONCE
09/03/23 16:36
Complete Blood Count/With Diff Urgent
Comprehensive Metabolic Panel Urgent
NT-proBNP Urgent
Troponin I Urgent
09/03/23 19:34
CR Chest - 2 Views Urgent
Comment:
Reason For Exam: sob,weakness
09/03/23 20:34
0.9% Sodium Chloride 500 ml [Nss] 500 ml IV BOLUS
09/03/23 20:59
Potassium Chloride [KCl] 40 meq 0.9% Sodium Chloride 250 ml [Nss] 250 ml IV NOW
Abnormal Lab Results
09/03/23
16:36
RBC 3.55 L 10^6/uL
(4.70-6.10)
Hgb 9.8 L g/dL
(13.0-18.0)
Hct 29.0 L %
(39.0-52.0)
Absolute Monos (auto) 0.7 H 10^3/uL
(0.1-0.6)
Sodium 134 L mmol/L
(135-145)
Potassium 3.1 L mmol/L
(3.5-5.1)
BUN 21 H mg/dl
(9-20)
Glucose 105 H mg/dl
(70-99)
Alkaline Phosphatase 140 H U/L
(38-126)
Troponin I 0.087 H* ng/ml
Total Protein 5.4 L g/dl
(6.3-8.2)
Albumin 2.2 L g/dl
(3.5-5.0)
09/03/23 16:36
09/03/23 16:36
Vital Signs
Initial and Last Documented VS:
Initial Vital Signs
Temp Pulse Resp BP Pulse Ox
98.2 F 85 16 95/53 96
09/03/23 16:11 09/03/23 16:11 09/03/23 16:11 09/03/23 16:11 09/03/23 16:11
Last Documented Vital Signs
Temp Pulse Resp BP Pulse Ox
98.2 F 66 16 79/50 98
09/03/23 16:11 09/03/23 21:00 09/03/23 16:11 09/03/23 21:00 09/03/23 21:00
MDM/Problems Addressed
Differential Diagnosis Includes:
Weakness weight loss shortness of breath. Differential is large could be multifactorial between multiple medical comorbidities him increased difficulty managing care of himself at home. Patient was here a month ago for CHF flare. He does look
edematous. Chest x-ray pending troponin is slightly bumped today however not any higher than what it has been in the past. He is anticoagulated. Do not suspect PE.
*Critical Care Note
Total Time (30-74mins, 75-104mins- exclusive of procedures): Not Applicable
Update Note
Update Note:
Patient noted to have hypotension with BP 70s over 50s. Labs look dry on exam. Chest x-ray shows no obvious acute finding. Potassium noted to be 3.1 and BNP is improved. Suspect volume depletion. He was given 500 mL fluid bolus with potassium
and blood pressure has improved. Patient lives by himself and was unable to walk into the ER today will keep in hospital for further hydration and treatment.
ED Attending Note
-
Portions of this chart may have been created with voice recognition software.� Occasional wrong word or��sound alike� substitutions may have occurred due to the inherent limitations of voice recognition software.
Discharge Plan
Departure
Patient Disposition: Admit
Date of Disposition: 09/03/23
Time of Disposition: 22:13
Admit to: Telemetry
Presentation/result/management discussed w/ accepting MD/DO: Hospitalist
Discharge Problem:
Hypotension, Fluid volume depletion
Prescriptions:
No Action
Eliquis 5 mg Tablet
5 mg PO BID Qty: 60 0RF
metoprolol succinate 25 mg Tablet Extended Release 24 Hr
25 mg PO DAILY Qty: 30 0RF
amiodarone [Pacerone] 200 mg tablet
200 mg PO DAILY
gabapentin 300 mg capsule
600 mg PO TID
furosemide [Lasix] 20 mg tablet
80 mg PO BID
silver sulfadiazine [SSD] 1 % Cream
1 applic TOPICAL BID
lidocaine 5 % Cream
1 applic TOPICAL DAILY
doxycycline hyclate 100 mg Tablet
100 mg PO BID
Patient Comments:
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
rosuvastatin [Crestor] 10 mg Tablet
10 mg PO DAILY
Referrals:
UNKNOWN - PT DOES,NOT KNOW [Family Provider] -
Interventions
Interventions:
*ED COVID-19 Vaccine History Last Done: 09/03/23 16:11
Discharge Date and Time
Print Language: LAO
[2023-09-03] MEDS: KCL 270 MEQ IV (22:29)
[2023-09-03] MEDS: NSS 1000 IV (22:39)
[2023-09-04] VITALS (32 sets, daily range): BP systolic 76–113; BP diastolic 41–83; PULSE 68–72; O2SAT 92–98
[2023-09-04] MEDS: LR 1000 IV ×2 (00:28→13:10)
[2023-09-04 00:59] LABS: Troponin I 0.121 ng/ml
[2023-09-04 01:24] LABS: Hematocrit 27.3 % (39.0-52.0); Hemoglobin 9.1 g/dL (13.0-18.0)
--- NOTE | 2023-09-04 01:30 | HPS.HSE ---
Family Physician
-
Family Physician: NOT KNOW UNKNOWN - PT DOES
Chief Complaint
-
Fatigue / Dyspnea
History of Present Illness
Patient is an 83y M with PMH significant for A-Fib, CHF and recent admission for CHF exacerbation who presents to ED complaining of weakness, fatigue and dyspnea with activity. Patient states that his symptoms have been progressive over the past
week or two. He was hospitalized here from 07/15 - 07/19 secondary to CHF / volume overload. His med regimen was adjusted at that time including an increase in his Lasix dose. Patient states that he has been feeling poorly - especially for the past
4 days or so. He has had very little to eat or drink in that time frame. He reports difficulty swallowing and notes that he occasionally has discomfort in the throat when food 'gets stuck'. He has become progressively more weak and has noted new
shortness of breath that occurs with activity - especially stairs.
Patient presented to the ED this evening for evaluation and reportedly collapsed getting out of his vehicle.
He was brought into the ED and his initial BP was in the 70s systolic. Patient has received bolus IVFs and states that he does feel somewhat improved.
After arrival in the ED, patient began to complain of some left sided chest 'discomfort'. He states that it is not pain. He did not have this prior to arrival.
Patient notes that he has had very dark appearing stools for the past 4 days or so as well.
Patient notes that he is being treated for wound on his sacrum / buttocks and on his R lower leg. He was started on topical treatment as well as doxycycline.
Medical History
Past Medical History
Past Medical History: Reports Other
Additional Past Medical History:
Paroxysmal Atrial Fibrillation
Chronic HFpEF
Coronary Artery Disease
Essential Hypertension
Hyperlipidemia
Laryngeal Cancer
Colon Cancer
Past Surgical History: Reports Other
Additional Past Surgical History:
Laryngectomy with Tracheostomy
Colectomy
Cholecystectomy
Social History
Tobacco: Former Smoker
Family History
Family History: Not pertinent
Allergies / Home Medications
Allergies reflects when Allergies were last updated in [employer].
Home Medications with original date entered in [employer]
Allergy/Medication List:
Allergies
Allergy/AdvReac Type Severity Reaction Status Date / Time
No Known Allergies Allergy Verified 09/03/23 16:13
Home Medications
apixaban 5 mg tablet (Eliquis) 5 mg PO BID #60 tabs 11/24/22
metoprolol succinate 25 mg tablet,extended release 24 hr 25 mg PO DAILY #30 tabs 11/24/22
amiodarone 200 mg tablet (Pacerone) 200 mg PO DAILY Arrhythmia 07/16/23
gabapentin 300 mg capsule 600 mg PO TID Neurological Condition 07/16/23
doxycycline hyclate 100 mg tablet 100 mg PO BID 09/03/23
furosemide 20 mg tablet (Lasix) 80 mg PO BID 09/03/23
lidocaine 5 % topical cream 1 applic topical DAILY BEHIND EARS 09/03/23
rosuvastatin 10 mg tablet 10 mg PO DAILY 09/03/23
silver sulfadiazine 1 % topical cream (SSD) 1 applic topical BID BUTTOCK WOUND 09/03/23
Review of Systems
-
History Source: Patient
A 12 point ROS was completed and negative except as noted: Yes
Constitutional: Reports Fatigue; Denies Fever or Chills
EENT: Denies Sore Throat
Respiratory: Reports Trouble Breathing; Denies Cough
Cardiac: Reports Chest Pain; Denies Diaphoresis, Palpitations or Syncope
Abdomen/GI: Reports Black Stools and Anorexia; Denies Abdominal Pain, Nausea or Vomiting
: Denies Dysuria or Frequency
Musculoskeletal: Reports Edema; Denies Joint Pain
Neurological: Reports Weakness; Denies Dizzy or Headache
Psych: Denies Depression or Anxiety
Physical Exam
Vital Signs
Vital Signs
Temp Pulse Resp BP Pulse Ox
98.5 F 71 16 110/64 98
09/03/23 22:56 09/03/23 23:30 09/03/23 16:11 09/03/23 23:30 09/03/23 23:30
Physical Exam
General: Other (83y M in no acute distress.)
HEENT: Other (Dry MM. Tracheotomy. No JVD.)
Respiratory: Other (Few bibasilar rales. No wheeze / rhonchi.)
Cardiac: S1/S2 and Regular Rhythm; No Murmur
GI: Soft, Non Tender, Non Distended and Normal Bowel Sounds
Rectal: Other (Dark, heme positive stool.)
Musculoskeletal: No Clubbing, No Cyanosis and Other (2+ pitting edema lower extremities. Small ulcerated area over the posterior R lower leg. No bleeding / discharge.)
Skin: Other (Superficial breakdown over the buttocks / sacral area.)
Neuro: AO x 3
Laboratory Results
-
Laboratory Results
Total Bilirubin 0.5 mg/dl (0.2-1.3) 09/03/23 16:36
AST 29 U/L (17-59) 09/03/23 16:36
ALT 18 U/L (0-50) 09/03/23 16:36
Alkaline Phosphatase 140 U/L (38-126) H 09/03/23 16:36
Troponin I 0.121 ng/ml H* D 09/04/23 00:15
Impression/Plan
-
A/P: Patient is an 83y M with PMH significant for CHF, A-Fib and history of laryngeal and colon cancers who presents to ED complaining of fatigue and dyspnea.
GI Bleed / Melena
Acute Blood Loss Anemia secondary to the above
Hypovolemia secondary to the above
Generalized Weakness secondary to the above
- Admit for further evaluation and treatment.
- Patient with 4g drop in Hgb over the past month, heme positive stool and hypovolemia / weakness.
- Suspect upper GI source - potentially related to recently started doxycycline.
- Hold further doxycycline.
- IV PPI BID.
- Hold Eliquis acutely given bleeding.
- GI evaluation for further recommendations / possible endoscopic examination.
- Follow H&H and transfuse as needed for Hgb < 7 or worsening symptoms.
Dysphagia / Odynophagia
- Patient reports recent issues with swallow function / discomfort / inability to take in PO.
- GI eval as noted above.
- Speech therapy eval.
Abnormal Troponin
ASCVD
- Unclear etiology. Patient with some chest discomfort since arrival here.
- ? related to anemia / stress / GI source / etc.
- EKG with generalized flattening of T waves but otherwise unremarkable and not significantly changed from prior.
- Continue to follow troponin to peak.
- Patient had similar troponin elevations during his prior visit.
- Cardiology evaluation.
Chronic HFpEF
- Patient with LE edema on exam, but hypotensive and likely hypovolemic due to blood loss.
- IVFs given in the ED.
- Follow daily weights, I/Os, etc.
- Will eventually require restart of diuretic regimen.
Wounds
- Sacral breakdown as well as small, superficial ulcer over the R lower leg.
- Wound care evaluation for local care.
Laryngeal Cancer s/p Laryngectomy / Tracheotomy
Colon Cancer s/p Colectomy
DVT Prophylaxis: SCDs
Code Status: Full
[2023-09-04 02:34] LABS: Urine Albumin 3+ (Neg - Trace); Urine Bilirubin 1+ (Negative); Urine Character Slightly Cloudy (Clear); Urine Color Yellow; Urine Glucose Negative (Negative); Urine Ketone Trace (Negative); Urine Leukocyte Trace (Negative); Urine Nitrite Positive (Negative); Urine Occult Blood Trace (Negative); Urine Urobilinogen 2+ (Neg - 1+)
[2023-09-04 02:41] LABS: Urine Squamous Cell 0-2 /LPF (Few)
[2023-09-04 02:42] LABS: Urine Bacteria Moderate (Negative); Urine Calcium Oxalate Crystals Seen; Urine Red Blood Cell 26-30 /HPF (0-2); Urine White Cell 16-20 /HPF (0-5)
--- NOTE | 2023-09-04 03:00 | PTCARENOTE ---
Pt arrived from ED via stretcher, transferred to bed. aaox3, difficult to understand d/t mechanical voice box. nsr on monitor. pox 97% on RA. RT at the bedside. c/o mild intermittent abd pain. ivf and kcl infusing as ordered.Pt brought medications
in from home,delivered to pharmacy per protocol. oriented to room. call waite within reach.
[2023-09-04 05:54] LABS: Hematocrit 25.1 % (39.0-52.0); Hemoglobin 8.4 g/dL (13.0-18.0); Mean Corp Hgb Conc. 33.5 g/dL (33.0-37.0); Mean Corpuscular Hgb 27.7 pg (27.0-31.0); Mean Corpuscular Volume 82.8 fL (80.0-94.0); Mean Platelet Volume 9.1 fL (7.4-10.4); Platelet Count 270 10^3/uL (130-400); Red Blood Cell Count 3.03 10^6/uL (4.70-6.10); Red Cell Dist. Width 13.8 % (11.5-14.5); White Blood Cell Count 6.9 10^3/uL (4.8-10.8)
[2023-09-04 06:22] LABS: Troponin I 0.131 ng/ml
[2023-09-04 06:25] LABS: Blood Urea Nitrogen 20 mg/dl (9-20); Carbon Dioxide 29 mmol/L (22-30); Chloride 106 mmol/L (98-107); Glucose 72 mg/dl (70-99); Potassium 3.5 mmol/L (3.5-5.1); Sodium 135 mmol/L (135-145); eGFR > 60.00
[2023-09-04] MEDS: PROTONIX IV 40 MG IV ×2 (09:01→20:46)
[2023-09-04] MEDS: CRESTOR 10 MG PO (09:01)
[2023-09-04] MEDS: TYLENOL 650 MG PO (09:01)
[2023-09-04] MEDS: PACERONE 200 MG PO (09:01)
[2023-09-04] MEDS: NSS (PRESERVATIVE FREE) 10 ML IV ×2 (09:02→20:46)
--- NOTE | 2023-09-04 09:12 | CON.CAR ---
Addendum entered and electronically signed by Kota Salazar MD 09/04/23 10:33:
I saw and examined the patient.
The SUPERVISOR OF OPERATIONS or PA's note was reviewed and I agree with the note.
Comment: General: Well developed, well nourished in NAD.
Neck: Supple, no JVD, HJR, carotids +2 B/L, no bruits bilaterally.
Heart: Non displaced PMI, RRR, no murmurs, No S3, S4, no rubs.
Lungs: Scattered rhonchi
Extremities: No clubbing, cyanosis or edema bilaterally.
Neuro: Grossly nonfocal, awake, alert and oriented x3.
Bennie has a history of chronic diastolic CHF, atrial fibrillation on amiodarone and Eliquis, laryngeal cancer status post resection and tracheostomy, moderate CAD, hyperlipidemia. He presented with weakness fatigue and collapse getting out of his car
upon presenting to the ER. Blood pressure was in the 70s and received IV fluids. He has had dark appearing stools for days.
Troponins are elevated but flat and due to to nonischemic myocardial injury in the setting of GI bleed and hypotension. He has no ischemic changes on ECG and no chest pain.
Eliquis remains on hold with anemia and GI bleeding. Lasix remains on hold with hypotension as well but will need to be restarted at some point.
Original Note:
Consultation
Consultation Request
Date/Time Consultation Performed: 09/04/23
Requesting Provider: Dr. Edwards
Performing Provider: Afua Troy PA-C for Dr. Salazar
Reason for Consultation: anemia, hypotension
Medical History
-
Chief Complaint: weakness
History of Present Illness:
Patient is an 83-year-old male well known to our service with past medical history of laryngeal cancer status postresection and tracheostomy with speaking valve, history of colon cancer status post partial colectomy, moderate CAD, dyslipidemia,
paroxysmal atrial flutter on chronic amiodarone and eliquis. He has HFpEF, and was admitted to for acute exacerbation 07/2023 resulting in increase in his lasix dosing from 40mg BID to 60mg BID. He presented to with complaints of weakness,
fatigue, weight loss, poor appetite, as well as VILLELA especially with stairs. Upon presenting to the ER this evening reportedly collapsed getting out of his car. Blood pressure on arrival was noted to be in 70s systolic. He received IV fluid. He
then reported dark appearing stools for several days. Hemoglobin is down 4 g from last month.
PMH:
chronic HFpEF
Paroxysmal atrial fibrillation/atrial flutter diagnosed 10/2022, rate controlled
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
History of colon cancer in 2004 status post partial colectomy
Amaurosis fugax
Dyslipidemia
Moderate CAD noted on CT of the chest
History of pulmonary nodules
Past Medical History
Past Medical History: Other (in HPI)
Social History
Tobacco: Former Smoker
Allergies / Home Medications
Allergy/AdvReac Type Severity Reaction Status Date / Time
No Known Allergies Allergy Verified 09/03/23 16:13
�Medication �Instructions �Recorded �Confirmed �Type
apixaban 5 mg tablet (Eliquis) 5 mg PO BID #60 tabs 11/24/22 09/03/23 Rx
metoprolol succinate 25 mg 25 mg PO DAILY #30 tabs 11/24/22 09/03/23 Rx
tablet,extended release 24 hr
amiodarone 200 mg tablet (Pacerone) 200 mg PO DAILY Arrhythmia 07/16/23 09/03/23 History
gabapentin 300 mg capsule 600 mg PO TID Neurological 07/16/23 09/03/23 History
Condition
doxycycline hyclate 100 mg tablet 100 mg PO BID 09/03/23 09/03/23 History
furosemide 20 mg tablet (Lasix) 80 mg PO BID 09/03/23 09/03/23 History
lidocaine 5 % topical cream 1 applic topical DAILY BEHIND EARS 09/03/23 09/03/23 History
rosuvastatin 10 mg tablet 10 mg PO DAILY 09/03/23 09/03/23 History
silver sulfadiazine 1 % topical 1 applic topical BID BUTTOCK WOUND 09/03/23 09/03/23 History
cream (SSD)
Review of Systems
-
History Source: Patient
All other systems: Negative unless noted
Physical Exam
Vital Signs
Temp Pulse Resp BP Pulse Ox
97.7 F 73 13 101/71 100
09/04/23 07:40 09/04/23 09:01 09/04/23 05:15 09/04/23 09:01 09/04/23 05:15
Lab Results
09/04/23 05:42
Troponin I 0.131 ng/ml H* 09/04/23 05:42
Woy-U-Stptxhomwua Pept 1750 pg/ml 09/03/23 16:36
Physical Exam
General: No Apparent Distress and Comfortable
HEENT: Normocephalic, Anicteric, Moist Mucous Membranes and Tracheotomy
Respiratory: Clear and Non Labored Respirations
Cardiac: S1/S2 and Regular Rhythm
Musculoskeletal: No Clubbing, No Cyanosis and Edema (trace of B/L LE)
Skin: Warm and Dry
Neuro: AO x 3
Impression / Plan
-
Primary Fuse Coiler: Dr. Giles
Assessment:
Presentation with weakness, fatigue
Hypotension on arrival
GI bleed/heme positive stool
Acute anemia
Dysphagia
Elevated troponin, suspected nonischemic myocardial injury
chronic HFpEF
Paroxysmal atrial fibrillation/atrial flutter diagnosed 10/2022, rate controlled
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
History of colon cancer in 2004 status post partial colectomy
Amaurosis fugax
Dyslipidemia
Moderate CAD noted on CT of the chest
History of pulmonary nodules
Sacral wound
Lexiscan nuclear stress test 04/27/2022: Normal sestamibi perfusion imaging, EF 60%
Echocardiogram 07/17/2023: Ejection fraction 55 to 60%, mild concentric LVH, mild MR, mild AI, moderate to severe TR with PA systolic of 45 mmHg
Plan:
-Patient presents with progressive weakness and fatigue. Was hypotensive on arrival, and heme positive in ER.
-Blood pressure improved status post IV fluid. Creatinine stable. Holding outpatient Lasix at present. Follow volume status. proBNP 1750
-GI to evaluate patient. Eliquis on hold. Follow hemoglobin, 8.4 on 09/03
-Holding Toprol with relative hypotension. Continue amiodarone. In sinus rhythm on review of telemetry/EKG
-Recent echo with results as above
-Troponins elevated but relatively flat in 0.1 range. Trend to peak. EKG sinus rhythm with nonspecific T wave abnormality. No acute ischemic changes noted. Suspected nonischemic myocardial injury in setting of acute GI bleed and hypotension.
Last stress test from 04/2022 with normal imaging. Moderate CAD was previously noted on a CT of the chest. Would consider for eventual ischemic evaluation, however will need to complete workup of GI bleeding first
-d/w nursing
Data Reviewed
-
EKG: Tracing Personally Visualized and interpreted
Radiology: Report Reviewed by me
Medical Tests (Nuc Med, Echo etc): Report Reviewed by me
Labs: Labs Reviewed by me
Old Records: Reviewed
--- NOTE | 2023-09-04 09:29 | WOUNDNOTE ---
R CALF (POSTERIOR LATERAL)
--- NOTE | 2023-09-04 09:30 | WOUNDNOTE ---
[facility] RN note: Patient admitted with GI bleed, HOTN, dysphagia, LE edema. Patient current with VN.
See H&P for complete history.
PMH: a fib (Bab[place]unde), CHF, admission 07/15-07/20/23 for CHF, colon ca, colectomy, laryngeal cancer, trach, CAD, HTN, cholecystectomy, former smoker.
Wound Location and type/assessment: Patient admitted with: stage 3 sacral/buttocks pressure injuries, pink with yellow slough. R posterior lateral calf full thickness to subcutaneous layer ulcer suspect from edema and possible trauma, pink with
yellow fibrin. +1-2 LE edema. Pedal pulses heard via portable Doppler. He stated he has worn compression stockings in the past. 07/18/23 MILO- R MILO 1.14, R toe .74; L MILO 1/07, L toe .83. 07/16/23 Venous Doppler negative for DVT Le's. Bilateral elbow
dry scabbed abrasions. He sleeps in a recliner at home.
Appetite: ST recently saw patient.
Pressure redistribution devices in place: Centrella Max air. Patient turns self in bed.
Plan: Sacral/buttocks dressing and RLE dressing changed. Silicone foam applied L elbow. Heels off bed with pillow. Air chair cushion placed under buttocks for more cushioning with help from KYM Gandhi. Patient keeps his HOB elevated. Instructed
patient to take air chair cushion when discharged and recommended he follow up at [facility].
Will confirm orders with Dr. Arenas and discussed with KYM Gandhi.
Care plan to be updated and will follow as needed.
Note to case management of equipment requested for discharge: hospital bed with air overlay if patient agrees.
Recommend follow up at wound care center upon discharge.
--- NOTE | 2023-09-04 10:00 | PTCARENOTE ---
pt awake and alert , NSR on monitor SBP 90s -100 , pt seen by speech therapy and can tolerated oral meds and liquids , complaining a abdominal discomfort , non tender to palpation , non distended, Tylenol given
--- NOTE | 2023-09-04 10:08 | CON.GI ---
Addendum entered and electronically signed by Dennise Cardona MD 09/04/23 12:05:
I saw and examined the patient.
The REHAB ASSISTANT or PA's note was reviewed and I agree with the note.
Comment:
Pt is a 83 y/o with a hx of afib on eliquis, laryngeal cancer, laryngectomy, hx of colon cancer with 1 month of dysphagia, recent doxycycline use and drop in hgb. never had egd, colonscopy over 10 yrs ago
abd: soft nontender
impression:
dysphagia
anemia
hx of colon cancer
plan:
EGD tomorrow (eliquis held)
avoid doxycycline for now
PPI
follow hgb, transfuse if needed
elective colonoscopy
Original Note:
Consultation
-
Date/Time Consultation Requested: 09/04/23 0002
Date/Time Consultation Performed: 09/04/23 1000
Requesting Provider: Dr. Edwards
Performing Provider: Dr. Cardona/RANDY Yeung
Reason for Consultation: melena/Ob stool, symptomatic anemia
Medical History
Chief Complaint / HPI
Chief Complaint: fatigue
History of Present Illness:
83-year-old male with past medical history of atrial fibrillation on Eliquis 5 mg twice daily last dose yesterday morning, CHF, laryngeal cancer status post laryngectomy, colon cancer status post partial resection last colonoscopy greater than 10
years ago at [place], CAD, hypertension, hyperlipidemia who presents to the emergency room with 2-week history of progressive weakness, dyspnea on exertion and complaints of odynophagia. Asked to evaluate for symptomatic anemia and OB positive
stool. The patient states that he has had approximately 1 month history of odynophagia and cannot tolerate even eating scrambled eggs. He feels as if these back up and with liquids he regurgitates some of these foods. He states that he can feel
soft mushy foods even like applesauce go down with some discomfort. He has also noticed dark stools for the past month. He did have some isolated abdominal discomfort yesterday. He cannot ever recall having an EGD. His last colonoscopy was
greater than 10 years ago at [place]. He does not take any NSAIDs. Yesterday prior to coming to the ER he did fall getting out of his car. He has been on doxycycline on past admission in July. He was also on a prednisone taper in the past in
July. The patient has not been on PPI. He denies any fevers, chills, nausea, vomiting, hematochezia or early satiety. He states he has lost approximately 12 pounds since discharge. This has been verified as patient is 60 kg now and was 68 kg on
discharge in July. However his Lasix dose was changed from 40 mg twice daily to 60 mg twice daily. The patient's hemoglobin on discharge was 13.6 (07/20/2023 it is currently 8.4 today down from 9.8 on 09/30/2023. Patient has been placed on
pantoprazole 40 mg IV. Eliquis has been held. Last dose was yesterday a.m. at home he was given 2 L bolus of IV fluids for hypotension in the emergency room with improvement of his blood pressure as he presented with blood pressure in 70s over
50s. Patient's blood pressure is currently 101/71 this a.m. he is tolerating applesauce this morning however he states he can feel it going down. It is not getting stuck. The patient denies any chest pain or shortness of breath at the present
time.
Past Medical History
Past Medical History: Arrhythmias (A-fib), CAD, Cancer (Colon cancer (2004), laryngeal cancer), CHF, HTN and Hypercholesterolemia
Past Surgical History: Bowel Resection, Cholecystectomy and Other (Laryngectomy, tracheostomy)
Social History
Tobacco: Former Smoker
Alcohol: None
Drug: None
Family History
Family History: Other (Family history unable as patient lived in foster home)
Allergies / Home Medications
Allergy/AdvReac Type Severity Reaction Status Date / Time
No Known Allergies Allergy Verified 09/03/23 16:13
�Medication �Instructions �Recorded
apixaban 5 mg tablet (Eliquis) 5 mg PO BID #60 tabs 11/24/22
metoprolol succinate 25 mg 25 mg PO DAILY #30 tabs 11/24/22
tablet,extended release 24 hr
amiodarone 200 mg tablet (Pacerone) 200 mg PO DAILY Arrhythmia 07/16/23
gabapentin 300 mg capsule 600 mg PO TID Neurological 07/16/23
Condition
doxycycline hyclate 100 mg tablet 100 mg PO BID 09/03/23
furosemide 20 mg tablet (Lasix) 80 mg PO BID 09/03/23
lidocaine 5 % topical cream 1 applic topical DAILY BEHIND EARS 09/03/23
rosuvastatin 10 mg tablet 10 mg PO DAILY 09/03/23
silver sulfadiazine 1 % topical 1 applic topical BID BUTTOCK WOUND 09/03/23
cream (SSD)
Review of Systems
-
All other systems: A 12 pt ROS was Negative except as stated above in HPI
Vital Signs
Temp Pulse Resp BP Pulse Ox
97.7 F 73 13 101/71 100
09/04/23 07:40 09/04/23 09:01 09/04/23 05:15 09/04/23 09:01 09/04/23 05:15
Physical Exam
Exam
General: No Apparent Distress
HEENT: Moist Mucous Membranes and Tracheotomy
Respiratory: Clear (Anterior)
Cardiac: Regular Rhythm
GI: Soft, Non Tender, Non Distended and Normal Bowel Sounds
Neuro: AO x 3
Psych: Calm
Results
WBC 6.9 10^3/uL (4.8-10.8) 09/04/23 05:42
Hgb 8.4 g/dL (13.0-18.0) L 09/04/23 05:42
Hct 25.1 % (39.0-52.0) L 09/04/23 05:42
MCV 82.8 fL (80.0-94.0) 09/04/23 05:42
Plt Count 270 10^3/uL (130-400) D 09/04/23 05:42
Absolute Neuts (auto) 5.3 10^3/uL (1.4-6.5) 09/03/23 16:36
Sodium 135 mmol/L (135-145) 09/04/23 05:42
Potassium 3.5 mmol/L (3.5-5.1) 09/04/23 05:42
Chloride 106 mmol/L (98-107) 09/04/23 05:42
Carbon Dioxide 29 mmol/L (22-30) 09/04/23 05:42
BUN 20 mg/dl (9-20) 09/04/23 05:42
Creatinine 0.9 mg/dL (0.7-1.3) 09/04/23 05:42
Calcium 8.0 mg/dl (8.4-10.2) L 09/04/23 05:42
Total Bilirubin 0.5 mg/dl (0.2-1.3) 09/03/23 16:36
AST 29 U/L (17-59) 09/03/23 16:36
ALT 18 U/L (0-50) 09/03/23 16:36
Alkaline Phosphatase 140 U/L (38-126) H 09/03/23 16:36
Diagnostic Image Results:
CXR:
Tiny left pleural effusion. Improved.
Minimal left lower lobe atelectasis versus scarring. Improved.
Electronically signed by Radha Mahmood DO , 09/03/2023 8:39 PM
Prior GI Procedures:
EGD: Never had EGD
Colonoscopy: Colonoscopy approximately or greater than 10 years ago at [place]
Assessment / Plan
-
83-year-old male with past medical history of atrial fibrillation on Eliquis 5 mg twice daily last dose yesterday morning, CHF, laryngeal cancer status post laryngectomy, colon cancer status post partial resection last colonoscopy greater than 10
years ago at [place], CAD, hypertension, hyperlipidemia who presents to the emergency room with 2-week history of progressive weakness, dyspnea on exertion and complaints of odynophagia. Asked to evaluate for symptomatic anemia and OB positive
stool. patient has had 1 month history of odynophagia to foods such as applesauce, dysphagia to foods with greater consistency then scrambled eggs. Progressive weight loss of approximately 12 pounds however had Lasix increased. Has been on
prednisone and doxycycline recently without PPI use. Discharge hemoglobin on 07/20/2023 was 13.6 with hemoglobin currently 9.8 on arrival however down to 8.4 this morning with dark stools for approximately 1 month OB positive in the ER. Placed on
pantoprazole 40 mg IV. Eliquis has been held last dose yesterday AM. Presented hypotensive with blood pressure in the 70s over 30s. 2 L of IV fluids given with improvement of blood pressure.
Impression:
Symptomatic anemia
OB positive stool
Odynophagia/Dysphagia
Afib on Eliquis (Last dose 09/03/23 am)
Hx colon Cancer s/p partial resection [place] (last Colonoscopy >10 yrs ago)
Hx Laryngeal Ca s/p Laryngectomy and Tracheostomy
HFpEF with recent increase in Lasix
Weight loss
Plan:
-Continue Pantoprazole 40 mg IV BID
-Will need at least EGD once Eliquis washed out (tomorrow)
-Trend Hgb
-Transfuse if needed
-Eventual colonoscopy to be discussed.
Data Reviewed
-
Radiology: Report Reviewed by me
Old Records: Reviewed
-
-
Thank you for consultation and allowing me to participate in the patient's care. Please call the transportation design engineer GI physician during the after hours with any questions or concerns.
[2023-09-04] MEDS: TOPROL XL PO (10:19)
--- NOTE | 2023-09-04 13:18 | W.PN.HOSP.TC ---
Today's Communication/Plan
-
Monitor hemoglobin
Hold Lasix and metoprolol for hypotension
Continue IV fluids while NPO.
For EGD tentatively on 09/04
Assessment / Plan
Assessment / Plan
Impression:
Patient is an 83y M with PMH significant for CHF, A-Fib and history of laryngeal and colon cancers who presents to ED complaining of fatigue and dyspnea.
Gastrointestinal hemorrhage/presentation with melena
Acute anemia secondary to blood loss likely related to anticoagulation with Eliquis.
Dysphagia/odynophagia.
Non-TN troponin elevation.
Acute on chronic hypotension on arrival with no evidence of shock
Conditions prior to admission:
Chronic CHF preserved EF
Paroxysmal atrial fibrillation/atrial flutter diagnosed in 2022
Anticoagulation with Eliquis
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
History of colon carcinoma in 2004 status post partial colectomy
History of TIA/CVA/amaurosis fugax
Dyslipidemia
CAD by history.
Pulmonary nodules.
Chronic sacral wounds
Plan:
Presentation with symptomatic anemia
Hypovolemia with transient hypotension secondary to above.
Noted hemoglobin dropped by 4 g from 13-9 since last hospitalization.
Suspect upper GI source given melena
Anticoagulated with Eliquis in addition to recently placed on doxycycline
Hemoglobin plateau 11/08
Blood pressure improves with IV fluids.
Monitor serial hemoglobin
Hold Eliquis
IV PPI twice daily
GI evaluation appreciated with plan for EGD on 09/04.
N.p.o. on IV fluids.
Dysphagia/odynophagia
Patient reports recent issues with swallowing..
Speech evaluation
Diet will be adjusted accordingly
GI evaluation as above
Non-TN troponin elevation
CAD.
Chest pain-free.
ECG with no ischemia with generalized flattening T waves.
Follow troponin to peak.
Cardiology input appreciated.
Metoprolol had to be held due to hypotension.
Paroxysmal atrial fibrillation
Continue amiodarone
Hold Eliquis
Chronic CHF preserved EF.
Echocardiogram 07/24 with EF of 50 to 60%, mild LVH, mild MR mild AI, mild to severe TR with PA systolic pressure 45 mmHg.
Hypotensive on admission now improved as BP close to baseline at 90s.
Follow serial hemoglobin, consider transfusion if drops below 8�8 0.5
Hold Lasix for now.
Sacral wound care.
Given marginal blood pressure continue close monitoring in IMU settings
Full code.
DVT prophylaxis mechanical.
Anticipated Discharge: 24 - 48 hours
Subjective/Interval History
-
Date of Service: September 04, 2023
Objective Data
-
Labs:
Laboratory Results
09/04/23 09/04/23 09/04/23
01:14 05:42 13:04
WBC 6.9
Hgb 9.1 L 8.4 L Pending
Hct 27.3 L 25.1 L Pending
Plt Count 270 D
Sodium 135
Potassium 3.5
Chloride 106
Carbon Dioxide 29
BUN 20
Creatinine 0.9
Glucose 72
Calcium 8.0 L
Vital Signs:
Vital Signs
Temp Pulse Resp BP Pulse Ox
98.0 F 73 13 101/71 100
09/04/23 11:24 09/04/23 09:01 09/04/23 05:15 09/04/23 09:01 09/04/23 05:15
I&O
09/03/23 09/04/23 09/05/23
06:59 06:59 06:59
Intake Total 560 / 560
Output Total 400 / 400 200 / 200
Balance -400 / -320 360 / 360
Physical Exam
-
General: Well Developed and No Apparent Distress
HEENT: Normocephalic, Atraumatic, Moist Mucous Membranes and Tracheotomy
Respiratory: Clear to Auscultation
Cardiac: Regular Rhythm and S1/S2; Negative Murmur, Rub or Gallop
GI: Soft, Nontender, Nondistended and Normal Bowel Sounds; Negative Organomegaly
Rectal: Deferred by Provider
Musculoskeletal: No Clubbing, No Cyanosis and No Edema
Skin: Negative Rash
Neuro: Awake, Alert, Oriented and Nonfocal/Grossly Intact
[2023-09-04 13:20] LABS: Hematocrit 25.7 % (39.0-52.0); Hemoglobin 8.2 g/dL (13.0-18.0)
[2023-09-04 13:43] LABS: Troponin I 0.121 ng/ml
--- NOTE | 2023-09-04 14:20 | PTCARENOTE ---
pt systolic Blood pressure 80s with maps of 50s at 11:00 -12:00 pt was drowsy but arousable , Dr Arenas notified , pt is now oob in chair with blood pressures 96/57 , plan for pt to have and UGI tomorrow , NPO after breakfast tommorow
[2023-09-04 19:25] LABS: Hematocrit 26.7 % (39.0-52.0); Hemoglobin 8.8 g/dL (13.0-18.0)
[2023-09-05] VITALS (10 sets, daily range): BP systolic 92–118; BP diastolic 56–94
[2023-09-05] MEDS: LR 1000 IV (01:32)
--- NOTE | 2023-09-05 04:00 | PTCARENOTE ---
Assessment charted, see worklist. No major issues throughout the night.AAOx3, mouths word. Gen weakness. NSR in the monitor. Dismissed lung sounds, SaO2 95% RA. pt appeared comfortable and call waite within reach.
[2023-09-05 06:23] LABS: Hematocrit 26.2 % (39.0-52.0); Hemoglobin 8.5 g/dL (13.0-18.0); Mean Corp Hgb Conc. 32.4 g/dL (33.0-37.0); Mean Corpuscular Hgb 27.6 pg (27.0-31.0); Mean Corpuscular Volume 85.1 fL (80.0-94.0); Mean Platelet Volume 9.6 fL (7.4-10.4); Platelet Count 278 10^3/uL (130-400); Red Blood Cell Count 3.08 10^6/uL (4.70-6.10); Red Cell Dist. Width 13.5 % (11.5-14.5); White Blood Cell Count 7.6 10^3/uL (4.8-10.8)
[2023-09-05 06:45] LABS: Blood Urea Nitrogen 16 mg/dl (9-20); Calcium 8.1 mg/dl (8.4-10.2); Carbon Dioxide 28 mmol/L (22-30); Chloride 105 mmol/L (98-107); Glucose 79 mg/dl (70-99); Potassium 3.3 mmol/L (3.5-5.1); Sodium 135 mmol/L (135-145); eGFR > 60.00
[2023-09-05] MEDS: CRESTOR 10 MG PO (08:42)
[2023-09-05] MEDS: TOPROL XL 25 MG PO (08:42)
[2023-09-05] MEDS: NSS (PRESERVATIVE FREE) 10 ML IV ×2 (08:44→20:06)
[2023-09-05] MEDS: PACERONE 200 MG PO (08:44)
[2023-09-05] MEDS: PROTONIX IV 40 MG IV ×2 (08:44→20:06)
--- NOTE | 2023-09-05 09:00 | W.PN.CARDCBS ---
Today's Communication / Plan
-
Eliquis on hold pending GI workup
Hold home metoprolol and Lasix given hypotension
Impression / Plan
-
Primary Plaster Applicator: Dr. Giles
Assessment:
Presentation with weakness, fatigue
Hypotension on arrival
GI bleed/heme positive stool
Acute anemia
Dysphagia
Elevated troponin, suspected nonischemic myocardial injury
chronic HFpEF
Paroxysmal atrial fibrillation/atrial flutter diagnosed 10/2022, rate controlled
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
History of colon cancer in 2004 status post partial colectomy
Amaurosis fugax
Dyslipidemia
Moderate CAD noted on CT of the chest
History of pulmonary nodules
Sacral wound
Lexiscan nuclear stress test 04/27/2022: Normal sestamibi perfusion imaging, EF 60%
Echocardiogram 07/17/2023: Ejection fraction 55 to 60%, mild concentric LVH, mild MR, mild AI, moderate to severe TR with PA systolic of 45 mmHg
Plan:
-Patient presents with progressive weakness and fatigue. Was hypotensive and anemic on arrival with heme positive stool in ER
-Blood pressure improved status post IV fluid. Creatinine stable. Holding outpatient Lasix at present. Follow volume status. proBNP 1750
-Eliquis on hold given symptomatic anemia. GI work up ongoing.
-Holding Toprol with relative hypotension. Continue amiodarone. In sinus rhythm on review of telemetry/EKG
-Troponins elevated but relatively flat in 0.1 range. Not reporting chest pain. EKG sinus rhythm with nonspecific T wave abnormality. Suspected nonischemic myocardial injury in setting of acute GI bleed and hypotension. Last stress test from 04/2022
with normal imaging. Moderate CAD was previously noted on a CT of the chest. Could consider repeat ischemic evaluation as an outpatient.
Progress Note - Plaster Applicator
Subjective
Date of Service: September 05, 2023
No acute overnight events. Patient is resting comfortably in bed. Not reporting any chest discomfort. Hemoglobin has remained stable. Troponin peaked overnight at 0.131. Awaiting EGD today.
Objective
Labs:
09/05/23 06:01
09/05/23 06:01
Labs
Hgb 8.5 g/dL (13.0-18.0) L 09/05/23 06:01
Hct 26.2 % (39.0-52.0) L 09/05/23 06:01
Plt Count 278 10^3/uL (130-400) 09/05/23 06:01
Sodium 135 mmol/L (135-145) 09/05/23 06:01
Potassium 3.3 mmol/L (3.5-5.1) L 09/05/23 06:01
BUN 16 mg/dl (9-20) 09/05/23 06:01
Creatinine 0.8 mg/dL (0.7-1.3) 09/05/23 06:01
Glucose 79 mg/dl (70-99) 09/05/23 06:01
Troponins
09/03/23 09/04/23 09/04/23
16:36 00:02 00:15
Troponin I 0.087 H* Cancelled 0.121 H* D
09/04/23 09/04/23
05:42 13:04
Troponin I 0.131 H* 0.121 H*
Vital Signs and I&O:
Vital Signs
Temp Pulse Resp BP Pulse Ox
98.2 F 75 21 103/64 98
09/05/23 08:00 09/05/23 08:44 09/05/23 06:06 09/05/23 08:44 09/05/23 06:06
Vital Signs
Temp Pulse Resp BP Pulse Ox
98.2 F 75 21 103/64 98
09/05/23 08:00 09/05/23 08:44 09/05/23 06:06 09/05/23 08:44 09/05/23 06:06
Intake & Output
09/03/23 09/04/23 09/05/23 09/06/23
06:59 06:59 06:59 06:59
Intake Total 2101
Output Total 400 / 400 800 / 800
Balance -400 / -320 1302 / 1302
Physical Exam
Physical Exam
Gen: NAD, AA
HEENT: NC/AT, sclera anicteric
Neck: No JVD, status post tracheostomy
CV: RRR, NL s1/s2
Lungs: Nonlabored on RA
Abd: S/ND
Ext: No LE edema
Skin: Warm, dry
Neuro: Non-focal
--- NOTE | 2023-09-05 09:21 | PTCARENOTE ---
Natalia from GI lab called this RN and verbal report was given
--- NOTE | 2023-09-05 09:59 | PTCARENOTE ---
the pt was received from previous table games shift manager RN, the pt was sitting on the side of the bed with his head on the the bedside table with a blanket over his head, this RN approached the pt and the pt was responsive to voice, the pt sat up and used his
voice prothesis to communicate with this RN, the pt explained his frustration with not eating this morning due to the pt being NPO for and EGD this AM, this RN apologized to the pt however this RN explained the importance of the procedure, the
inspector machine cut glass entered the pts room and spoke with the pt about his plan of care and this RN conformed with the provider that is was okay to administered PO medications even though the pt was NPO, the pt was able to take PO medication without
difficulty, VS WNL, assessment charted in work list, the pt was able to ambulate to the bathroom and had a bowel movement, this RN took the pt to GI lab for EGD, will continue to monitor the pt on the monitor closely and await to pick the pt up from
GI lab
--- NOTE | 2023-09-05 10:35 | W.PN.UPDATE ---
Update Note
Progress Note Update
EGD: large circumferential GEJ mass extending 7 cm into the esophagus and down 3 cm into the stomach. Not fully obstructed as I could mass the scope.
plan:
continue on PPI bid
clears
path sent as [facility] and oncology will be needed
would stay off anticoagulation for now
--- NOTE | 2023-09-05 10:45 | PTCARENOTE ---
this RN called GI lab for verbal report from Natalia MEJÍA, Mass found in EGD and biopsy performed, provider will be coming to speak to the pt about EGD
--- NOTE | 2023-09-05 11:31 | PTCARENOTE ---
Gastro provider currently at the pts bedside speaking with the pt and is going to call the pts son
--- NOTE | 2023-09-05 11:56 | W.PN.HOSP.TC ---
Today's Communication/Plan
-
EGD today revealing GE junction mass pending biopsy
Clear liquids per
IV PPI.
Continue current cardiovascular medication
Hold Lasix for another 24 hours monitoring volume status closely.
Oncology consultation
Assessment / Plan
Assessment / Plan
Impression:
Patient is an 83y M with PMH significant for CHF, A-Fib and history of laryngeal and colon cancers who presents to ED complaining of fatigue and dyspnea.
Gastrointestinal hemorrhage/presentation with melena
Acute anemia secondary to blood loss likely related to anticoagulation with Eliquis.
Dysphagia/odynophagia.
Non-MA troponin elevation.
Acute on chronic hypotension on arrival with no evidence of shock
Conditions prior to admission:
Chronic CHF preserved EF
Paroxysmal atrial fibrillation/atrial flutter diagnosed in 2022
Anticoagulation with Eliquis
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
History of colon carcinoma in 2004 status post partial colectomy
History of TIA/CVA/amaurosis fugax
Dyslipidemia
CAD by history.
Pulmonary nodules.
Chronic sacral wounds
Plan:
Presentation with symptomatic anemia
Hypovolemia with transient hypotension secondary to above.
Noted hemoglobin dropped by 4 g from 13-9 since last hospitalization.
Suspect upper GI source given melena
Anticoagulated with Eliquis in addition to recently placed on doxycycline
Hemoglobin plateau
Blood pressure improved with IV fluid bolus
EGD 09/04: Large circumferential GEJ mass extending 7 cm into the esophagus and drawn 3 cm into the stomach. Not fully obstructive. Biopsied with pending pathology.
Monitor serial hemoglobin
IV PPI twice daily
Clears.
Eliquis has been stopped.
Dysphagia/odynophagia
Patient reports recent issues with swallowing..
Speech evaluation
Diet will be adjusted accordingly
GI evaluation as above
Non-MA troponin elevation
CAD.
Chest pain-free.
ECG with no ischemia with generalized flattening T waves.
Follow troponin to peak.
Cardiology input appreciated.
Metoprolol had to be held due to hypotension.
Paroxysmal atrial fibrillation
Continue amiodarone
Hold Eliquis
Chronic CHF preserved EF.
Echocardiogram 07/24 with EF of 50 to 60%, mild LVH, mild MR mild AI, mild to severe TR with PA systolic pressure 45 mmHg.
Hypotensive on admission now improved as BP close to baseline at 90s.
Follow serial hemoglobin, consider transfusion if drops below 8�8 0.5
Hold Lasix for now.
Sacral wound care.
Given marginal blood pressure continue close monitoring in IMU settings
Full code.
DVT prophylaxis mechanical.
Anticipated Discharge: 24 - 48 hours
Subjective/Interval History
-
Date of Service: September 05, 2023
Objective Data
-
Labs:
Laboratory Results
09/05/23
06:01
WBC 7.6
Hgb 8.5 L
Hct 26.2 L
Plt Count 278
Sodium 135
Potassium 3.3 L
Chloride 105
Carbon Dioxide 28
BUN 16
Creatinine 0.8
Glucose 79
Calcium 8.1 L
Vital Signs:
Vital Signs
Temp Pulse Resp BP Pulse Ox
97.6 F 67 18 103/64 99
09/05/23 11:08 09/05/23 10:00 09/05/23 10:00 09/05/23 08:44 09/05/23 10:00
I&O
09/04/23 09/05/23 09/06/23
06:59 06:59 06:59
Intake Total 2102 / 2102 270 / 270
Output Total 400 / 400 800 / 800 200 / 200
Balance -400 / -320 1302 / 1302 70 / 70
Physical Exam
-
General: Well Developed and No Apparent Distress
HEENT: Normocephalic, Atraumatic, Moist Mucous Membranes and Tracheotomy
Respiratory: Clear to Auscultation
Cardiac: Regular Rhythm and S1/S2; Negative Murmur, Rub or Gallop
GI: Soft, Nontender, Nondistended and Normal Bowel Sounds; Negative Organomegaly
Rectal: Deferred by Provider
Musculoskeletal: No Clubbing, No Cyanosis and No Edema
Skin: Negative Rash
Neuro: Awake, Alert, Oriented and Nonfocal/Grossly Intact
--- NOTE | 2023-09-05 12:25 | PTCARENOTE ---
the pt is resting in bed in the lowest position, side rails up, HOB elevated, call waite within reach, VS WNL, no change from previous shift, the pt is sleeping and appears comfortable, per GI doctor the pt is not to eat at this current point in
time, the pt offers no complaints other than he is cold, this RN provided warm blankets for the pt, will continue to monitor the pt closely
--- NOTE | 2023-09-05 13:15 | W.PN.UPDATE ---
Update Note
Progress Note Update
spoke to patient and son Seferino. updated them. pt will be moving to [place] later this month and son will get update regarding recommendations once biopsies are back and f/u consults are done. d/w Dr. Arenas
--- NOTE | 2023-09-05 13:23 | PTCARENOTE ---
the pt pressed the call waite and this RN entered the pts room, the pt stated to this RN that he wanted to get out of the bed and into the chair, this RN assisted the pt from the bed to the chair with no difficulties, the pt stated to this RN that he
was 'freezing', this RN provided the pt with 4 warm blankets, the pt is aware that he is on a clear liquid diet now and asked this RN to order him a tray, this RN called the kitchen and ordered the pt a tray, the pt is sitting in chair, call waite
within reach, head of chair elevated, VS WNL, no s/s of distress, will continue to monitor the pt closely
--- NOTE | 2023-09-05 13:24 | PN.CDI ---
CDI
- -
CDI:
Physician Documentation Request
Admit Date: 09/03/23 23:56
Dear Doctor Dagoberto,
Clinical Indicators:
Patient admitted with gastrointestinal hemorrhage with acute blood loss anemia.
Cardiology PN, 'Suspected nonischemic myocardial injury in setting of acute GI bleed and hypotension.'
09/04 PN, 'Non-NV troponin elevation'
Due to potentially conflicting documentation, please clarify the etiology of the elevated troponin
Non ischemic myocardial injury
Non NV troponin elevation
Other
Use of terms such as suspected, likely, concern for, or probable (associated with a specific diagnosis that is being evaluated, monitored, or treated as if it exists) are acceptable and can be coded in the inpatient setting, when documented at the
time of discharge.
Thank you,
NOEMI Berkowitz RN
CDI Specialist
available via tiger text
Please use your independent medical judgment in providing your response.
[2023-09-05] MEDS: KCL ELIXIR 40 MEQ PO (14:12)
--- NOTE | 2023-09-05 14:56 | PTCARENOTE ---
the pt refused physical therapy, provider notified
[2023-09-05] MEDS: TYLENOL 650 MG PO (16:38)
--- NOTE | 2023-09-05 17:39 | CM ---
Patient with Dx GIB, dysphagia s/p EGD today. Clear liquids. PT & OT recommend HH. Seen by wound care nurse. PT & OT recommend HH.
Spoke with patient's son Seferino, who lives in .
The patient resides alone in an apartment with 8 [address], in [place].
The patient has been independent in ADLs and ambulation.
The son states that the patient had been falling a lot at home recently, at least 4 x in the past few weeks.
He had been fiercely independent until now and not keeping his son informed about his status.
The son says he has not visited the apartment that the patient has been living in for the past year.
The patient was worried about affording food and his [place] Executive Manager set him up with food stamps.
The [place] CM was also ordering him a RW and SPC but Tarun did not know the status of when patient would be getting those things.
He is hoping patient can be issued a RW while here.
The patient has no DME.
Prior [facility] - son would like the patient to have this resumed at d/c
PCP - son does not know
Pharmacy - [facility]
The son is moving the patient to an assisted living facility in [place] the week of September 16, which patient has agreed to.
Plan request script for RW.
Plan referral to [facility].
--- NOTE | 2023-09-05 20:00 | PTCARENOTE ---
Assumed care of patient at 1900. Nursing assessment completed and as documented. Patient with trach stoma but able to communicate via speaking valve, expectorating secretions from trach site and providing self care, denies need for additional
intervention. Patient anxious at time's, repositioned for comfort and hygiene care provided. VSS, call waite within reach, safe environment maintained, continue with current care plan.
[2023-09-06] VITALS (15 sets, daily range): BP systolic 97–122; BP diastolic 56–97; O2SAT 97
[2023-09-06 04:53] LABS: % Basophils 0.3 % (0-2); % Eosinophils 2.1 % (0-6); % Immature Granulocytes 0.4 % (0-0.5); % Lymphocytes 19.9 % (20.5-51.1); % Monocytes 8.2 % (1.7-9.3); % Neutrophils 69.1 % (42.2-75.2); Absolute Eosinophils 0.2 10^3/uL (0-0.7); Absolute Lymphocytes 1.4 10^3/uL (1.2-3.4); Absolute Monocytes 0.6 10^3/uL (0.1-0.6); Absolute Neutrophils 4.9 10^3/uL (1.4-6.5); Hemoglobin 8.6 g/dL (13.0-18.0); Mean Corp Hgb Conc. 33.1 g/dL (33.0-37.0); Mean Corpuscular Hgb 27.2 pg (27.0-31.0); Mean Corpuscular Volume 82.3 fL (80.0-94.0); Mean Platelet Volume 9.3 fL (7.4-10.4); Nucleated Red Blood Cells % 0 % (-); Platelet Count 277 10^3/uL (130-400); Red Blood Cell Count 3.16 10^6/uL (4.70-6.10); Red Cell Dist. Width 13.5 % (11.5-14.5)
[2023-09-06 05:22] LABS: Blood Urea Nitrogen 14 mg/dl (9-20); Calcium 8.1 mg/dl (8.4-10.2); Carbon Dioxide 25 mmol/L (22-30); Chloride 107 mmol/L (98-107); Glucose 71 mg/dl (70-99); Potassium 3.7 mmol/L (3.5-5.1); Sodium 136 mmol/L (135-145); eGFR > 60.00
--- NOTE | 2023-09-06 07:23 | CON.ONC ---
Addendum entered and electronically signed by Nik Carey DO 09/06/23 15:59:
Spoke with son ad primary service. Path signet ring adeno. CT chest/abd/pelvis. Son is concerned that moving to [place] is not the appropriate circumstance given his current needs and prognosis. Pending results of staging and performance status
goals of care discussion may be required as well as mcc placement locally.
Original Note:
Impression
Impression
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
Gastrointestinal hemorrhage/presentation with melena
Symptomatic anemia
Atrial fibrillation
History of congestive heart failure
Dysphagia/odynophagia
Non-AR troponin elevation
Acute on chronic hypotension
Conditions prior to admission:
Chronic CHF preserved EF
Paroxysmal atrial fibrillation/atrial flutter diagnosed in 2022
Anticoagulation with Eliquis
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
History of colon carcinoma in 2004 status post partial colectomy
History of TIA/CVA/amaurosis fugax
Dyslipidemia
CAD by history
Pulmonary nodules
Chronic sacral wounds
Plan
Plan
With support transfusion with hemoglobin less than 8.5 g/dL given history of CHF and active bleeding
CT scan chest abdomen and pelvis or outpatient PET CT scan would be appropriate for completion of staging
Prognosis depends on staging although patient has little reserve for aggressive therapy
A palliative approach may be appropriate with [employer] as per the CROSS trial i.e. carboplatin/Taxol and radiation
Unlikely to be a candidate for evolving standard of care definitive therapy which would include neoadjuvant FLOT followed by surgery followed by postoperative FLOT
Understand disposition and likely moved to [place] to be with his son
Initial attempt and discussion with his son Tarun no answer at [phone]
Patient History
History of Present Illness
Kota Bacon is a pleasant 83-year-old gentleman noting progressive odynophagia, fatigue and presyncope symptoms, noted on admission to have had a 4 g drop in his hemoglobin over a period of 6 weeks. He reports melena and occasional red blood per
rectum on Eliquis for atrial fibrillation. He underwent an EGD yesterday which revealed a large GE junction mass likely indicative of adenocarcinoma. His past medical history includes previous malignancies including advanced laryngeal carcinoma
for which he underwent a laryngectomy at [facility] in the s and colon carcinoma.
Past-Medical/Surgical History
Past Medical History
Past Medical History: Arrhythmias (A-fib), CAD, Cancer (Colon cancer (2004), laryngeal cancer), CHF, HTN and Hypercholesterolemia
Past Surgical History: Bowel Resection, Cholecystectomy and Other (Laryngectomy, tracheostomy)
Social History
Tobacco: Former Smoker
Alcohol: None
Drug: None
Family History
Family History: Other (Family history unable as patient lived in foster home)
Patient Medication
�Medication �Instructions �Recorded �Confirmed �Last Taken �Type
apixaban 5 mg tablet (Eliquis) 5 mg PO BID #60 tabs 11/24/22 09/03/23 08/31/23 Rx
metoprolol succinate 25 mg 25 mg PO DAILY #30 tabs 11/24/22 09/03/23 12/27/22 07:30 Rx
tablet,extended release 24 hr
amiodarone 200 mg tablet (Pacerone) 200 mg PO DAILY Arrhythmia 07/16/23 09/03/23 Unknown History
gabapentin 300 mg capsule 600 mg PO TID Neurological 07/16/23 09/03/23 Unknown History
Condition
doxycycline hyclate 100 mg tablet 100 mg PO BID Infection 09/03/23 09/03/23 08/30/23 History
furosemide 20 mg tablet (Lasix) 80 mg PO BID Fluid 09/03/23 09/03/23 Unknown History
Retention/Swelling
lidocaine 5 % topical cream 1 applic topical DAILY BEHIND EARS 09/03/23 09/03/23 Unknown History
rosuvastatin 10 mg tablet 10 mg PO DAILY High Cholesterol 09/03/23 09/03/23 Unknown History
silver sulfadiazine 1 % topical 1 applic topical BID BUTTOCK WOUND 09/03/23 09/03/23 Unknown History
cream (SSD)
Active Medications
Generic Name Dose Route Start Last Admin
Trade Name Freq PRN Reason Stop Dose Admin
Acetaminophen 650 mg 09/04/23 00:02 09/05/23 16:38
Acetaminophen 325 Mg Tablet PO 10/02/23 00:01 650 mg
Q4HPRN PRN Administration
Mild Pain / Temp > 101
Amiodarone HCl 200 mg 09/04/23 08:00 09/05/23 08:44
Amiodarone 200 Mg Tablet PO 10/02/23 07:59 200 mg
DAILY NIKOLE Administration
Metoprolol Succinate 25 mg 09/04/23 08:00 09/05/23 08:42
Metoprolol 25 Mg Extended Release Tablet PO 10/02/23 07:59 25 mg
DAILY NIKOLE Administration
Pantoprazole Sodium 40 mg 09/04/23 08:00 09/05/23 20:06
Pantoprazole Sodium 40 Mg/10 Ml Vial IV 10/02/23 07:59 40 mg
BID NIKOLE Administration
Prochlorperazine Edisylate 5 mg 09/04/23 00:02
Prochlorperazine 10 Mg/2 Ml Vial IV 10/02/23 00:01
Q6HPRN PRN
Nausea
Rosuvastatin Calcium 10 mg 09/04/23 08:00 09/05/23 08:42
Rosuvastatin (Crestor) 10 Mg Tablet PO 10/02/23 07:59 10 mg
DAILY NIKOLE Administration
Sodium Chloride 0 flush 09/04/23 01:00
Sodium Chloride 0.9% (Flush) Syringe IV 10/02/23 00:59
PER PROTOCOL NIKOLE
Sodium Chloride 10 ml 09/04/23 08:00 09/05/23 20:06
Sodium Chloride 0.9% (Preservative Free) 10 Ml Vial IV 10/02/23 07:59 10 ml
BID NIKOLE Administration
Review of Systems
-
12 point review of systems fails to elicit additional complaints other than those reviewed in the HPI
Physical Exam
-
Exam
General: No Apparent Distress
HEENT: Moist Mucous Membranes and Tracheotomy
Respiratory: Clear (Anterior)
Cardiac: Regular Rhythm
GI: Soft, Non Tender, Non Distended and Normal Bowel Sounds
Neuro: AO x 3
Psych: Calm
Labs
Lab Results
WBC 7.0 10^3/uL (4.8-10.8) 09/06/23 04:44
RBC 3.16 10^6/uL (4.70-6.10) L 09/06/23 04:44
Hgb 8.6 g/dL (13.0-18.0) L 09/06/23 04:44
Hct 26.0 % (39.0-52.0) L 09/06/23 04:44
MCV 82.3 fL (80.0-94.0) 09/06/23 04:44
MCH 27.2 pg (27.0-31.0) 09/06/23 04:44
MCHC 33.1 g/dL (33.0-37.0) 09/06/23 04:44
RDW 13.5 % (11.5-14.5) 09/06/23 04:44
Plt Count 277 10^3/uL (130-400) 09/06/23 04:44
MPV 9.3 fL (7.4-10.4) 09/06/23 04:44
Abs Immat Gran (auto) 0.0 10^3/uL (0-0.05) 09/06/23 04:44
Absolute Neuts (auto) 4.9 10^3/uL (1.4-6.5) 09/06/23 04:44
Absolute Lymphs (auto) 1.4 10^3/uL (1.2-3.4) 09/06/23 04:44
Absolute Monos (auto) 0.6 10^3/uL (0.1-0.6) 09/06/23 04:44
Absolute Eos (auto) 0.2 10^3/uL (0-0.7) 09/06/23 04:44
Absolute Basos (auto) 0.0 10^3/uL (0-0.2) 09/06/23 04:44
Immature Gran % 0.4 % (0-0.5) 09/06/23 04:44
Neutrophils % 69.1 % (42.2-75.2) 09/06/23 04:44
Lymphocytes % 19.9 % (20.5-51.1) L 09/06/23 04:44
Monocytes % 8.2 % (1.7-9.3) 09/06/23 04:44
Eosinophils % 2.1 % (0-6) 09/06/23 04:44
Basophils % 0.3 % (0-2) 09/06/23 04:44
Creatinine 0.7 mg/dL (0.7-1.3) 09/06/23 04:44
Vital Signs
Vital Signs
Temp Pulse Resp BP Pulse Ox
96.0 F L 69 19 98/56 98
09/06/23 03:42 09/06/23 04:00 09/06/23 04:00 09/06/23 04:00 09/06/23 02:00
[2023-09-06] MEDS: PROTONIX IV 40 MG IV ×2 (07:28→20:50)
[2023-09-06] MEDS: CRESTOR 10 MG PO (07:28)
[2023-09-06] MEDS: NSS (PRESERVATIVE FREE) 10 ML IV ×2 (07:28→20:50)
[2023-09-06] MEDS: PACERONE 200 MG PO (07:44)
--- NOTE | 2023-09-06 08:36 | PTCARENOTE ---
Patient resting in bed. Reports ABD pain and reports he doesn't like his clear liquid diet. AAOx3 VS within normal limits. Patient encourage to order breakfast. Once breakfast is here patient will be assisted OOB to chair.
--- NOTE | 2023-09-06 09:05 | W.PN.GI.CBS2 ---
Addendum entered and electronically signed by Dennise Cardona MD 09/06/23 12:19:
I saw and examined the patient.
The CERTIFIED INDOOR ENVIRONMENTALIST or PA's note was reviewed and I agree with the note.
Comment:
D/w patient that prelim biopsies show poorly differentiated adenoca. He has no vomiting and tolerated clears
alert, oriented
impression
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
plan:
staging and treatment as per Dr. Carey
Dr. Carey did try to reach son Tarun who wants to be updated on plan which will be more clear once staging done
would hold on anticoag for now as bleeding risk high
able to tolerate po but would avoid meats, best would be soft or pureed
PPI bid
will sign off call with questions
Original Note:
Today's Communication / Plan
-
EGD as noted with concern for esophageal mass
path pending
appreciate oncology input
CT vs pet per oncology
overall plan is pt is moving to [place] near family in 2 weeks
cont PPI
will allow dysphagia diet IDDS 4 with supplement and close monitoring
-Continue Pantoprazole 40 mg IV BID
-hbg stable 8.[address] Cardona spoke with son yesterday
Assessment / Plan
-
83-year-old male with past medical history of atrial fibrillation on Eliquis. , CHF, laryngeal cancer status post laryngectomy, colon cancer status post partial resection last colonoscopy greater than 10 years ago at [facility], CAD, hypertension,
hyperlipidemia who presents to the emergency room with 2-week history of progressive weakness, dyspnea on exertion and complaints of odynophagia. Asked to evaluate for symptomatic anemia and OB positive stool. patient has had 1 month history of
odynophagia to foods such as applesauce, dysphagia to foods with greater consistency then scrambled eggs with 12 lb wt loss. Has been on prednisone and doxycycline recently without PPI use with also noted drop in hbg and hypotension on admission.
09/04 EGD - Partially obstructing, likely malignant esophageal tumor was found at the gastroesophageal junction (10cm
in length, 7 cm in the esophagus, 3 cm into the stomach. Biopsied.- Normal gastric- Normal examined duodenum.
Impression:
partially obstructing esophageal tumor at GEJ
Symptomatic anemia
OB positive stool
Odynophagia/Dysphagia
Afib on Eliquis
Hx colon Cancer s/p partial resection [place] (last Colonoscopy >10 yrs ago)
Hx Laryngeal Ca s/p Laryngectomy and Tracheostomy
HFpEF with recent increase in Lasix
Weight loss
Plan:
EGD as noted with concern for esophageal mass
path pending
appreciate oncology input
CT vs pet per oncology
overall plan is pt is moving [place] [facility]
cont PPI
will allow dysphagia diet IDDS 4 with supplement and close monitoring
-Continue Pantoprazole 40 mg IV BID
-hbg stable 8.[address] Cardona spoke with son yesterday
Subjective
Subjective
Date of Service: September 06, 2023
on clear diet, brown stool 09/04
Objective
Data Reviewed
Laboratory Data:
Laboratory Results
09/06/23 04:44
09/06/23 04:44
Laboratory Results
Total Bilirubin 0.5 mg/dl (0.2-1.3) 09/03/23 16:36
AST 29 U/L (17-59) 09/03/23 16:36
ALT 18 U/L (0-50) 09/03/23 16:36
Alkaline Phosphatase 140 U/L (38-126) H 09/03/23 16:36
Vital Signs and I&O:
Vital Signs
Temp Pulse Resp BP Pulse Ox
98.2 F 72 19 113/70 98
09/06/23 07:46 09/06/23 07:44 09/06/23 04:00 09/06/23 07:44 09/06/23 02:00
I&O
09/05/23 09/06/23 09/07/23
06:59 06:59 06:59
Intake Total 2102 / 2102 580 / 580
Output Total 800 / 800 600 / 600
Balance 1302 / 1302 -20 / -20
Physical Exam
Physical Exam
HEENT: Anicteric and Moist mucous membranes
Cardiology: Normal Sinus Rhythm
Pulmonary: Other (voice box with noted prior trach )
GI: Soft, Non Distended and Non Tender
Extremities: No Edema
Neuro: Non Focal
--- NOTE | 2023-09-06 10:16 | W.PN.CARDCBS ---
Today's Communication / Plan
-
To high risk to resume anticoagulation per GI
Resume oral Lasix at a lower dose tomorrow
Stable cardiac status, we will sign off, please recall as needed
Impression / Plan
-
Primary Commissary Clerk: Dr. Giles
Assessment:
Presentation with weakness, fatigue
Hypotension on arrival
GI bleed/heme positive stool - found to have GEJ mass c/f malignancy
Acute anemia
Dysphagia
Elevated troponin, suspected nonischemic myocardial injury
chronic HFpEF
Paroxysmal atrial fibrillation/atrial flutter diagnosed 10/2022, rate controlled
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
History of colon cancer in 2004 status post partial colectomy
Amaurosis fugax
Dyslipidemia
Moderate CAD noted on CT of the chest
History of pulmonary nodules
Sacral wound
Lexiscan nuclear stress test 04/27/2022: Normal sestamibi perfusion imaging, EF 60%
Echocardiogram 07/17/2023: Ejection fraction 55 to 60%, mild concentric LVH, mild MR, mild AI, moderate to severe TR with PA systolic of 45 mmHg
Plan:
-Patient presents with progressive weakness and fatigue. Was hypotensive and anemic on arrival found to have UGI mass concerning for malignancy.
-Blood pressure improved status post IV fluid. Creatinine stable. Holding outpatient Lasix at present. Follow volume status. proBNP 1750
-Plan to resume lasix at lower dose tomorrow, 80mg once daily
-In sinus rhythm on review of telemetry/EKG
-Eliquis on hold given symptomatic anemia. Per GI he is too high risk to resume OAC.
-Stop Toprol given relative hypotension
-Continue amiodarone
-Troponins elevated but relatively flat in 0.1 range. Not reporting chest pain. EKG sinus rhythm with nonspecific T wave abnormality. Suspected nonischemic myocardial injury in setting of acute GI bleed and hypotension. Last stress test from 04/2022
with normal imaging. Moderate CAD was previously noted on a CT of the chest. Could consider repeat ischemic evaluation as an outpatient.
Stable cardiac status, we will sign off
Tentatively moving to [place] to be closer to family however if he stays in the area we can arrange for outpatient follow-up
Cardiac meds on discharge:
Amiodarone 200 mg daily
Rosuvastatin 10 mg daily
Lasix 80 mg daily
Progress Note - Commissary Clerk
Subjective
Date of Service: September 06, 2023
No acute overnight events. Underwent EGD yesterday and found to have upper GI mass, path pending. No cardiac complaints at present.
Objective
Labs:
09/06/23 04:44
09/06/23 04:44
Labs
Hgb 8.6 g/dL (13.0-18.0) L 09/06/23 04:44
Hct 26.0 % (39.0-52.0) L 09/06/23 04:44
Plt Count 277 10^3/uL (130-400) 09/06/23 04:44
Sodium 136 mmol/L (135-145) 09/06/23 04:44
Potassium 3.7 mmol/L (3.5-5.1) 09/06/23 04:44
BUN 14 mg/dl (9-20) 09/06/23 04:44
Creatinine 0.7 mg/dL (0.7-1.3) 09/06/23 04:44
Glucose 71 mg/dl (70-99) 09/06/23 04:44
Troponins
09/03/23 09/04/23 09/04/23
16:36 00:02 00:15
Troponin I 0.087 H* Cancelled 0.121 H* D
09/04/23 09/04/23
05:42 13:04
Troponin I 0.131 H* 0.121 H*
Vital Signs and I&O:
Vital Signs
Temp Pulse Resp BP Pulse Ox
98.2 F 72 19 113/70 98
09/06/23 07:46 09/06/23 07:44 09/06/23 04:00 09/06/23 07:44 09/06/23 02:00
Vital Signs
Temp Pulse Resp BP Pulse Ox
98.2 F 72 19 113/70 98
09/06/23 07:46 09/06/23 07:44 09/06/23 04:00 09/06/23 07:44 09/06/23 02:00
Intake & Output
09/04/23 09/05/23 09/06/23 09/07/23
06:59 06:59 06:59 06:59
Intake Total 2102 / 2102 580 / 580
Output Total 400 / 400 800 / 800 600 / 600
Balance -400 / -320 1302 / 1302 -20 / -20
Physical Exam
Physical Exam
Gen: NAD, AA
HEENT: NC/AT, sclera anicteric, status post trach, mechanical voice
Neck: No JVD
CV: RRR, NL s1/s2, no M/R/G
Lungs: CTAB
Abd: S/ND
Ext: No LE edema
Skin: Warm, dry
Neuro: Non-focal
[2023-09-06] MEDS: TYLENOL 650 MG PO (10:18)
--- NOTE | 2023-09-06 13:16 | W.PN.HOSP.TC ---
Today's Communication/Plan
-
CT scan of the chest abdomen pelvis for staging.
Advance diet.
Continue IV PPI.
Monitor hemoglobin.
With relatively compensated volume status and soft blood pressure, continue holding Lasix.
Assessment / Plan
Assessment / Plan
Impression:
Patient is an 83y M with PMH significant for CHF, A-Fib and history of laryngeal and colon cancers who presents to ED complaining of fatigue and dyspnea.
Gastrointestinal hemorrhage/presentation with melena
Acute anemia secondary to blood loss likely related to anticoagulation with Eliquis.
Dysphagia/odynophagia.
Non-AR troponin elevation.
Acute on chronic hypotension on arrival with no evidence of shock
Conditions prior to admission:
Chronic CHF preserved EF
Paroxysmal atrial fibrillation/atrial flutter diagnosed in 2022
Anticoagulation with Eliquis
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
History of colon carcinoma in 2004 status post partial colectomy
History of TIA/CVA/amaurosis fugax
Dyslipidemia
CAD by history.
Pulmonary nodules.
Chronic sacral wounds
Plan:
Presentation with symptomatic anemia
Hypovolemia with transient hypotension secondary to above.
Noted hemoglobin dropped by 4 g from 13-9 since last hospitalization.
Suspect upper GI source given melena
Anticoagulated with Eliquis in addition to recently placed on doxycycline
Hemoglobin plateau
Blood pressure improved with IV fluid bolus
EGD 09/04: Large circumferential GEJ mass extending 7 cm into the esophagus and drawn 3 cm into the stomach. Not fully obstructive. Pathology consistent with adenocarcinoma
Discussed with GI and oncology. Plan is for staging with CT scan of the chest abdomen and pelvis which will facilitate disposition options.
Monitor serial hemoglobin
IV PPI twice daily
Diet has been advanced to solids
Eliquis has been stopped.
Dysphagia/odynophagia
Patient reports recent issues with swallowing..
Speech evaluation
Diet will be adjusted accordingly
GI evaluation as above
Non-AR troponin elevation
CAD.
Chest pain-free.
ECG with no ischemia with generalized flattening T waves.
Follow troponin to peak.
Cardiology input appreciated.
Metoprolol had to be held due to hypotension.
Paroxysmal atrial fibrillation
Continue amiodarone
Hold Eliquis
Chronic CHF preserved EF.
Echocardiogram 07/24 with EF of 50 to 60%, mild LVH, mild MR mild AI, mild to severe TR with PA systolic pressure 45 mmHg.
Hypotensive on admission now improved as BP close to baseline at 90s.
Follow serial hemoglobin, consider transfusion if drops below 8�8 0.5
Hold Lasix for now.
Sacral wound care.
Given marginal blood pressure continue close monitoring in IMU settings
Full code.
DVT prophylaxis mechanical.
Anticipated Discharge: 24 - 48 hours
Subjective/Interval History
-
Date of Service: September 06, 2023
Objective Data
-
Labs:
Laboratory Results
09/06/23
04:44
WBC 7.0
Hgb 8.6 L
Hct 26.0 L
Plt Count 277
Sodium 136
Potassium 3.7
Chloride 107
Carbon Dioxide 25
BUN 14
Creatinine 0.7
Glucose 71
Calcium 8.1 L
Vital Signs:
Vital Signs
Temp Pulse Resp BP Pulse Ox
97.9 F 72 19 113/70 98
09/06/23 12:00 09/06/23 07:44 09/06/23 04:00 09/06/23 07:44 09/06/23 02:00
I&O
09/05/23 09/06/23 09/07/23
06:59 06:59 06:59
Intake Total 2102 / 2102 580 / 580
Output Total 800 / 800 600 / 600
Balance 1302 / 1302 -20 / -20
Physical Exam
-
General: Well Developed and No Apparent Distress
HEENT: Normocephalic, Atraumatic and Moist Mucous Membranes
Respiratory: Clear to Auscultation
Cardiac: Regular Rhythm and S1/S2; Negative Murmur, Rub or Gallop
GI: Soft, Nontender, Nondistended and Normal Bowel Sounds; Negative Organomegaly
Rectal: Deferred by Provider
Musculoskeletal: No Clubbing, No Cyanosis and No Edema
Skin: Negative Rash
Neuro: Nonfocal/Grossly Intact
[2023-09-06] MEDS: OMNIPAQUE 50 ML PO (15:01)
--- NOTE | 2023-09-06 16:03 | VNURNOTE ---
Patient is current with [facility] since 07/20 w/SN/PT/OT/HEARING STENOGRAPHER, will monitor progress and plan at discharge.
[2023-09-07 01:54] VITALS: BP 109/66
[2023-09-07 04:11] VITALS: BP 124/79
[2023-09-07 04:35] LABS: Hematocrit 28.9 % (39.0-52.0); Hemoglobin 9.4 g/dL (13.0-18.0); Mean Corp Hgb Conc. 32.5 g/dL (33.0-37.0); Mean Corpuscular Hgb 27.5 pg (27.0-31.0); Mean Corpuscular Volume 84.5 fL (80.0-94.0); Mean Platelet Volume 9.5 fL (7.4-10.4); Platelet Count 290 10^3/uL (130-400); Red Blood Cell Count 3.42 10^6/uL (4.70-6.10); Red Cell Dist. Width 13.6 % (11.5-14.5); White Blood Cell Count 7.3 10^3/uL (4.8-10.8)
[2023-09-07 08:00] VITALS: BP 112/64
[2023-09-07] MEDS: PROTONIX IV 40 MG IV ×2 (08:00→20:23)
[2023-09-07] MEDS: CRESTOR 10 MG PO (08:00)
[2023-09-07] MEDS: NSS (PRESERVATIVE FREE) 10 ML IV ×2 (08:01→20:24)
[2023-09-07] MEDS: PACERONE 200 MG PO (08:01)
[2023-09-07] MEDS: LASIX 80 MG PO (08:04)
--- NOTE | 2023-09-07 08:43 | PTCARENOTE ---
Patient complaining of ABD pain tripod position, MD made aware. Dilaudid ordered. VS within normal limits. Patient complaining of difficulty urinating, Bladder scan in progress.
[2023-09-07] MEDS: DILAUDID 1 MG IV (08:46)
[2023-09-07 12:00] VITALS: BP 95/60
--- NOTE | 2023-09-07 13:58 | W.PN.ONC2 ---
Today's Communication / Plan
-
- CT concerning for at least locally advanced however likely metastatic disease with multiple lung nodules.
- pt declined systemic therapy and plans to meet with hospice.
- continue transfusion support while inpt.
Impression
Impression
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
Gastrointestinal hemorrhage/presentation with melena
Symptomatic anemia
Atrial fibrillation
History of congestive heart failure
Dysphagia/odynophagia
Non-NE troponin elevation
Acute on chronic hypotension
Conditions prior to admission:
Chronic CHF preserved EF
Paroxysmal atrial fibrillation/atrial flutter diagnosed in 2022
Anticoagulation with Eliquis
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
History of colon carcinoma in 2004 status post partial colectomy
History of TIA/CVA/amaurosis fugax
Dyslipidemia
CAD by history
Pulmonary nodules
Chronic sacral wounds
Plan
Plan
CT scan chest abdomen and pelvis concerning at least local lymph node involvement and possibly pulmonary metastases with several bilateral nodules measuring up to 1 cm. Further work-up with PET/CT and/or bx could be considered however with current
PS and GOC unlikely to currency exchange specialist. Reviewed imaging and pt expressed that he would not be interested in additional chemotherapy or surgical interventions as he had had several prior cancer treatments and states 'my time has come'. primary
team had already spoke with son who agreed with comfort care approach.
hospice consulted. family to determine if he will pursue this in [place] or in [place] to be closer to family as I suspect based on current clinical status he still has months life expectancy.
tolerated soft diet. ADAT. no role for PEG
continue support transfusion with hemoglobin less than 8.5 g/dL given history of CHF and active bleeding
Subjective/Objective
Chief Complaint
esophageal cancer
Subjective
pt without new complaints today. He tolerated soft diet this am. Reviewed CT C/A/P with him that showed atypical paratracheal LN and several bilateral lung nodules that could be inflammatory however c/f metastases.
Vital Signs:
Vital Signs
Temp Pulse Resp BP Pulse Ox
98.3 F 84 24 95/60 96
09/07/23 07:26 09/07/23 12:00 09/06/23 14:00 09/07/23 12:00 09/07/23 04:11
Lab Results:
Laboratory Data
WBC 7.3 10^3/uL (4.8-10.8) 09/07/23 04:20
Hgb 9.4 g/dL (13.0-18.0) L 09/07/23 04:20
Plt Count 290 10^3/uL (130-400) 09/07/23 04:20
eGFR > 60.00 09/06/23 04:44
Physical Exam
HEENT: Other (tracheostomy stoma ); No Jaundice
Cardiology: Normal Sinus Rhythm
Pulmonary: Clear
Extremities: No Edema
Neuro: Non Focal
Review of Systems
Review of Systems
Cardiovascular: Denies Chest Pain
Gastrointestinal: Reports Other (indigestion/heart burn this am); Denies Nausea/Vomiting or Diarrhea
Neurological: Denies Headache
[2023-09-07 14:42] VITALS: BP 121/69
--- NOTE | 2023-09-07 15:37 | W.PN.HOSP.TC ---
Today's Communication/Plan
-
Hospice evaluation.
Continue IV PPI for now
Monitor hemoglobin
Diet has been advanced
Start analgesic regimen including Tylenol, oxycodone, hydromorphone.
Assessment / Plan
Assessment / Plan
Impression:
Patient is an 83y M with PMH significant for CHF, A-Fib and history of laryngeal and colon cancers who presents to ED complaining of fatigue and dyspnea.
Gastrointestinal hemorrhage/presentation with melena
Acute anemia secondary to blood loss likely related to anticoagulation with Eliquis.
Dysphagia/odynophagia.
Non-IL troponin elevation.
Acute on chronic hypotension on arrival with no evidence of shock
Conditions prior to admission:
Chronic CHF preserved EF
Paroxysmal atrial fibrillation/atrial flutter diagnosed in 2022
Anticoagulation with Eliquis
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
History of colon carcinoma in 2004 status post partial colectomy
History of TIA/CVA/amaurosis fugax
Dyslipidemia
CAD by history.
Pulmonary nodules.
Chronic sacral wounds
Plan:
Presentation with symptomatic anemia
Hypovolemia with transient hypotension secondary to above.
Noted hemoglobin dropped by 4 g from 13-9 since last hospitalization.
Suspect upper GI source given melena
Anticoagulated with Eliquis in addition to recently placed on doxycycline
Hemoglobin plateau
Blood pressure improved with IV fluid bolus
EGD 09/04: Large circumferential GEJ mass extending 7 cm into the esophagus and drawn 3 cm into the stomach. Not fully obstructive. Pathology consistent with adenocarcinoma
Discussed with GI and oncology.
CT scan of the chest abdomen pelvis consistent with metastatic disease.
Discussion with patient as well as patient's son over the phone. Patient is not a candidate and also declining aggressive treatment including systemic therapy
Hospice evaluation placed
Neurologic and likely malignant pain in the epigastrium. Will start oxycodone/hydromorphone
Monitor serial hemoglobin
IV PPI twice daily for another 48 hours with eventual transition to oral.
Diet has been advanced to solids
Eliquis has been stopped.
Dysphagia/odynophagia
Patient reports recent issues with swallowing..
Speech evaluation
Diet has been advanced with aspiration precautions
GI evaluation as above
Non-IL troponin elevation
CAD.
Chest pain-free.
ECG with no ischemia with generalized flattening T waves.
Follow troponin to peak.
Cardiology input appreciated.
Metoprolol had to be held due to hypotension.
Paroxysmal atrial fibrillation
Continue amiodarone
Hold Eliquis
Chronic CHF preserved EF.
Echocardiogram 07/24 with EF of 50 to 60%, mild LVH, mild MR mild AI, mild to severe TR with PA systolic pressure 45 mmHg.
Hypotensive on admission now improved as BP close to baseline at 90s.
Follow serial hemoglobin, consider transfusion if drops below 8�8 0.5
Patient has no oral intake and marginal BP.
Will hold Lasix for now.
Sacral wound care.
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 Fortunately patient is a poor candidate for systemic and surgical treatment
Discussed with patient and patient's son Seferino over the phone and according to patient wishes CODE STATUS changed to DNR.
Hospice evaluation requested.
Anticipated Discharge: > 48 hours
Subjective/Interval History
-
Date of Service: September 07, 2023
Objective Data
-
Labs:
Laboratory Results
09/07/23
04:20
WBC 7.3
Hgb 9.4 L
Hct 28.9 L
Plt Count 290
Vital Signs:
Vital Signs
Temp Pulse Resp BP Pulse Ox
97.8 F 83 17 121/69 98
09/07/23 14:42 09/07/23 14:42 09/07/23 14:42 09/07/23 14:42 09/07/23 14:42
I&O
09/06/23 09/07/23 09/08/23
06:59 06:59 06:59
Intake Total 580 / 580 250 / 250
Output Total 600 / 600 650 / 650 200 / 200
Balance -20 / -20 -650 / -650 50 / 50
Physical Exam
-
General: Well Developed and No Apparent Distress
HEENT: Normocephalic, Atraumatic, Moist Mucous Membranes and Tracheotomy
Respiratory: Clear to Auscultation
Cardiac: Regular Rhythm and S1/S2; Negative Murmur, Rub or Gallop
GI: Soft, Nontender, Nondistended and Normal Bowel Sounds; Negative Organomegaly
Rectal: Deferred by Provider
Musculoskeletal: No Clubbing, No Cyanosis and No Edema
Skin: Negative Rash
Neuro: Awake, Alert, Oriented and Nonfocal/Grossly Intact
--- NOTE | 2023-09-07 15:48 | CM ---
CM following re: discharge planning.
Reviewed pt's chart, met with pt and spoke to [facility] community relations representative.
Hospice consult noted. Pt referred to hospice.
manager hospice following.
D/C plan: Hospice care with hospice at preferred setting.
CM will follow with discharge plan updates as hospitalization progresses
[2023-09-07] MEDS: FLUSH (NSS) 2 FLUSH IV (20:25)
[2023-09-07 23:15] VITALS: BP 107/65
[2023-09-08 07:10] VITALS: BP 102/56
[2023-09-08 07:18] LABS: % Basophils 0.4 % (0-2); % Eosinophils 2.2 % (0-6); % Immature Granulocytes 0.9 % (0-0.5); % Lymphocytes 24.7 % (20.5-51.1); % Monocytes 7.8 % (1.7-9.3); Absolute Eosinophils 0.2 10^3/uL (0-0.7); Absolute Immature Granulocytes 0.1 10^3/uL (0-0.05); Absolute Lymphocytes 1.7 10^3/uL (1.2-3.4); Absolute Monocytes 0.5 10^3/uL (0.1-0.6); Absolute Neutrophils 4.4 10^3/uL (1.4-6.5); Hematocrit 28.9 % (39.0-52.0); Hemoglobin 9.6 g/dL (13.0-18.0); Mean Corp Hgb Conc. 33.2 g/dL (33.0-37.0); Mean Corpuscular Hgb 27.4 pg (27.0-31.0); Mean Corpuscular Volume 82.3 fL (80.0-94.0); Mean Platelet Volume 9.3 fL (7.4-10.4); Nucleated Red Blood Cells % 0 % (-); Platelet Count 301 10^3/uL (130-400); Red Blood Cell Count 3.51 10^6/uL (4.70-6.10); Red Cell Dist. Width 13.9 % (11.5-14.5); White Blood Cell Count 6.9 10^3/uL (4.8-10.8)
--- NOTE | 2023-09-08 07:18 | W.PN.HOSP.TC ---
Today's Communication/Plan
-
Ongoing hospice discussions.
Assessment / Plan
Assessment / Plan
Physical exam:
General: Acute and chronically ill
HEENT: Trach stoma in place. Normocephalic, Atraumatic and Moist Mucous Membranes
Respiratory: Clear to Auscultation; Negative Wheezes, Rales or Rhonchi
Cardiac: Regular Rhythm and S1/S2
GI: Soft, Nontender and Nondistended
Musculoskeletal: No Clubbing, No Cyanosis and No Edema
Neuro: Awake, Alert and Oriented
Psych: Calm
A/P:
Impression:
Patient is an 83y M with PMH significant for CHF, A-Fib and history of laryngeal and colon cancers who presents to ED complaining of fatigue and dyspnea. CT concerning for locally advanced to metastatic disease with multiple lung nodules.
Gastrointestinal hemorrhage/presentation with melena
Acute anemia secondary to blood loss likely related to anticoagulation with Eliquis.
Dysphagia/odynophagia.
Non-NE troponin elevation.
Acute on chronic hypotension on arrival with no evidence of shock
Conditions prior to admission:
Chronic CHF preserved EF
Paroxysmal atrial fibrillation/atrial flutter diagnosed in 2022
Anticoagulation with Eliquis
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
History of colon carcinoma in 2004 status post partial colectomy
History of TIA/CVA/amaurosis fugax
Dyslipidemia
CAD by history.
Pulmonary nodules.
Chronic sacral wounds
Plan:
Presentation with symptomatic anemia
Hypovolemia with transient hypotension secondary to above.
Noted hemoglobin dropped by 4 g from 13-9 since last hospitalization.
Suspect upper GI source given melena
Anticoagulated with Eliquis in addition to recently placed on doxycycline
Hemoglobin plateau
Blood pressure improved with IV fluid bolus
EGD 09/04: Large circumferential GEJ mass extending 7 cm into the esophagus and drawn 3 cm into the stomach. Not fully obstructive. Pathology consistent with adenocarcinoma
Discussed with GI and oncology.
CT scan of the chest abdomen pelvis consistent with metastatic disease.
Discussion with patient as well as patient's son over the phone. Patient is not a candidate and also declining aggressive treatment including systemic therapy
Hospice evaluation placed
Neurologic and likely malignant pain in the epigastrium. Will start oxycodone/hydromorphone
Monitor serial hemoglobin
IV PPI twice daily for another 48 hours with eventual transition to oral.
Diet has been advanced to solids
Eliquis has been stopped.
Dysphagia/odynophagia
Patient reports recent issues with swallowing..
Speech evaluation
Diet has been advanced with aspiration precautions
GI evaluation as above
Non-NE troponin elevation
CAD.
Chest pain-free.
ECG with no ischemia with generalized flattening T waves.
Follow troponin to peak.
Cardiology input appreciated.
Metoprolol had to be held due to hypotension.
Paroxysmal atrial fibrillation
Continue amiodarone
Hold Eliquis
Chronic CHF preserved EF.
Echocardiogram 07/24 with EF of 50 to 60%, mild LVH, mild MR mild AI, mild to severe TR with PA systolic pressure 45 mmHg.
Hypotensive on admission now improved as BP close to baseline at 90s.
Follow serial hemoglobin, consider transfusion if drops below 8�8 0.5
Patient has no oral intake and marginal BP.
Will hold Lasix for now.
Sacral wound care.
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 Fortunately patient is a poor candidate for systemic and surgical treatment. Reviewed oncology correspondence.
Discussed with hospice nurse today on 09/07 and they are planning to have a discussion and family meeting with son and patient this coming Sunday. Discussed with attending RN today.
Dr. Arenas discussed with patient and patient's son Seferino over the phone and according to patient wishes CODE STATUS changed to DNR.
Anticipated Discharge: > 48 hours
Subjective/Interval History
-
Date of Service: September 08, 2023
Patient seen and examined.
Objective Data
-
Labs:
Laboratory Results
09/08/23
06:33
WBC Pending
Hgb Pending
Hct Pending
Plt Count Pending
Sodium Pending
Potassium Pending
Chloride Pending
Carbon Dioxide Pending
BUN Pending
Creatinine Pending
Glucose Pending
Calcium Pending
Vital Signs:
Vital Signs
Temp Pulse Resp BP Pulse Ox
98.6 F 76 22 107/65 98
09/07/23 23:15 09/07/23 23:15 09/07/23 23:15 09/07/23 23:15 09/07/23 23:15
I&O
09/07/23 09/08/23 09/09/23
06:59 06:59 06:59
Intake Total 370 / 370
Output Total 650 / 650 551 / 551
Balance -650 / -650 -181 / -181
[2023-09-08 08:11] LABS: Blood Urea Nitrogen 13 mg/dl (9-20); Calcium 8.5 mg/dl (8.4-10.2); Carbon Dioxide 22 mmol/L (22-30); Chloride 107 mmol/L (98-107); Glucose 73 mg/dl (70-99); Potassium 3.8 mmol/L (3.5-5.1); Sodium 134 mmol/L (135-145); eGFR > 60.00
[2023-09-08] MEDS: PROTONIX IV 40 MG IV ×2 (08:44→20:41)
[2023-09-08] MEDS: NSS (PRESERVATIVE FREE) 10 ML IV ×2 (08:44→20:40)
[2023-09-08] MEDS: FLUSH (NSS) 1 FLUSH IV ×2 (08:45→09:01)
[2023-09-08] MEDS: PACERONE 200 MG PO (08:47)
[2023-09-08] MEDS: CRESTOR 10 MG PO (08:47)
[2023-09-08] MEDS: DILAUDID 0.5 MG IV (08:54)
[2023-09-08] MEDS: FLUSH (NSS) 2 FLUSH IV ×2 (08:55→20:42)
[2023-09-08] MEDS: COMPAZINE 5 MG IV (09:00)
--- NOTE | 2023-09-08 09:53 | HOSPNOTE ---
Referral received. I called and spoke to patients son Seferino who lives in [place]. He originally planned to move patient to [place] to an assisted living facility. At this time, he understands that a move would not be recommended for patient with his severity
of disease and also the facility he planned to move him to could not accommodate the level of care patient will need. I reviewed hospice and the philosophy with Seferino. He believes this would be the best option for patient however he would like to
discuss this in person with patient. He plans to arrive at the hospital Sunday AM. He would then like to discuss with patient and hospice and make a decision. He is fearful that patient currently does not understand the extent of his disease at
this time. Hospice will continue to follow and meet with Seferino and patient on Sunday when he arrives. CM and Attending updated.
--- NOTE | 2023-09-08 11:07 | PTCARENOTE ---
Pt is c/o the diet. He does not like the pureed food and is not eating. However maribell is drinking his Ensure. He has been taking his pills whole and is refusing applesauce with them. He is swallowing them. He also was in much pain this am holding
and rubbing his abd. Pt was medicated with Dilaudid 0.5mg and also given compazine 5mg iv for c/o nausea. His pain level was a 6/10. Pain level recheck and pt sates that it is gone. Will cont to monitor.
[2023-09-08 15:15] VITALS: BP 122/66
[2023-09-08 23:14] VITALS: BP 102/61
[2023-09-09 07:58] VITALS: BP 105/64
[2023-09-09] MEDS: CRESTOR 10 MG PO (08:23)
[2023-09-09] MEDS: PROTONIX IV 40 MG IV ×2 (08:23→20:35)
[2023-09-09] MEDS: PACERONE 200 MG PO (08:23)
[2023-09-09] MEDS: NSS (PRESERVATIVE FREE) 10 ML IV ×2 (08:23→20:36)
[2023-09-09] MEDS: FLUSH (NSS) 2 FLUSH IV ×2 (08:24→17:07)
--- NOTE | 2023-09-09 08:35 | PTCARENOTE ---
Pt is not eating. He hates the diet he is on. Also this am has complaints of epigastric pain, gas like feeling. He is often seen rubbing his stomach but reluctant to take anything for it. Yesterday pt did take Dilauidid 0.5mg for abd pain and
Compazine for nausea which did help. Will cont to monitor.
--- NOTE | 2023-09-09 08:46 | W.PN.HOSP.TC ---
Today's Communication/Plan
-
Continue current management. Hospice discussions ongoing.
Assessment / Plan
Assessment / Plan
Physical exam:
General: Acute and chronically ill
HEENT: Trach stoma without abnormality. Normocephalic, Atraumatic and Moist Mucous Membranes
Respiratory: Clear to Auscultation; Negative Wheezes, Rales or Rhonchi
Cardiac: Regular Rhythm and S1/S2
GI: Soft, Nontender and Nondistended
Musculoskeletal: No Clubbing, No Cyanosis and No Edema
Neuro: Awake, Alert and Oriented
Psych: Calm
A/P:
Impression:
Patient is an 83y M with PMH significant for CHF, A-Fib and history of laryngeal and colon cancers who presents to ED complaining of fatigue and dyspnea. 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
Gastrointestinal hemorrhage/presentation with melena
Acute anemia secondary to blood loss likely related to anticoagulation with Eliquis.
Dysphagia/odynophagia.
Non-AL troponin elevation.
Acute on chronic hypotension on arrival with no evidence of shock
Conditions prior to admission:
Chronic CHF preserved EF
Paroxysmal atrial fibrillation/atrial flutter diagnosed in 2022
Anticoagulation with Eliquis
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
History of colon carcinoma in 2004 status post partial colectomy
History of TIA/CVA/amaurosis fugax
Dyslipidemia
CAD by history.
Pulmonary nodules.
Chronic sacral wounds
Plan:
Presentation with symptomatic anemia
Hypovolemia with transient hypotension secondary to above.
Noted hemoglobin dropped by 4 g from 13-9 since last hospitalization.
Suspect upper GI source given melena
Anticoagulated with Eliquis in addition to recently placed on doxycycline
Hemoglobin plateau
Blood pressure improved with IV fluid bolus
EGD 09/04: Large circumferential GEJ mass extending 7 cm into the esophagus and drawn 3 cm into the stomach. Not fully obstructive. Pathology consistent with adenocarcinoma
Discussed with GI and oncology.
CT scan of the chest abdomen pelvis consistent with metastatic disease.
Discussion with patient as well as patient's son over the phone by Dr Arenas. Patient is not a candidate and also declining aggressive treatment including systemic therapy
Hospice evaluation placed-->I discussed with hospice nurse on 09/07 and they are planning to have a discussion and family meeting with son and patient this coming Sunday.
Neurologic and likely malignant pain in the epigastrium. Will cont oxycodone/hydromorphone
Monitor serial hemoglobin
IV PPI twice daily for another 24 hours with eventual transition to oral.
Diet has been advanced to solids and tolerating well.
Eliquis has been stopped.
Hemoglobin today 09/08 stable at 10.4
Dysphagia/odynophagia
Patient reports recent issues with swallowing.
Speech evaluation
Diet has been advanced with aspiration precautions.
Patient does not like current diet that much but awaiting for hospice discussion prior to advancing.
GI evaluation as above
Non-AL troponin elevation
CAD.
Chest pain-free.
ECG with no ischemia with generalized flattening T waves.
Follow troponin to peak.
Cardiology input appreciated.
Metoprolol had to be held due to hypotension.
Paroxysmal atrial fibrillation
Continue amiodarone
Hold Eliquis
Chronic CHF preserved EF.
Echocardiogram 07/24 with EF of 50 to 60%, mild LVH, mild MR mild AI, mild to severe TR with PA systolic pressure 45 mmHg.
Hypotensive on admission now improved as BP close to baseline at 90s.
Follow serial hemoglobin, consider transfusion if drops below 8�8 0.5
Patient has no oral intake and marginal BP.
Will hold Lasix for now since blood pressure was soft and not eating much yet. Can consider restart in 24-48 Hrs.
Sacral wound care.
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 Fortunately patient is a poor candidate for systemic and surgical treatment. Reviewed oncology correspondence.
Discussed with hospice nurse on 09/07 and they are planning to have a discussion and family meeting with son and patient this coming Sunday. Discussed with attending RN today.
Dr. Arenas discussed with patient and patient's son Seferino over the phone and according to patient wishes CODE STATUS changed to DNR. Confirmed myself with patient and agrees to continue DNR.
Anticipated Discharge: > 48 hours
Subjective/Interval History
-
Date of Service: September 09, 2023
Patient not eating much, decreased appetite, no shortness of breath. No chest pain. Afebrile.
Objective Data
-
Labs:
Laboratory Results
09/09/23
06:00
WBC Pending
Hgb Pending
Hct Pending
Plt Count Pending
Vital Signs:
Vital Signs
Temp Pulse Resp BP Pulse Ox
98.1 F 77 16 105/64 97
09/09/23 07:58 09/09/23 07:58 09/09/23 07:58 09/09/23 07:58 09/09/23 07:58
I&O
09/08/23 09/09/23 09/10/23
06:59 06:59 06:59
Intake Total 370 / 370 270 / 270
Output Total 551 / 551 280 / 280
Balance -181 / -181 -10 / -10
[2023-09-09 10:12] LABS: Hematocrit 32.1 % (39.0-52.0); Hemoglobin 10.4 g/dL (13.0-18.0); Mean Corp Hgb Conc. 32.4 g/dL (33.0-37.0); Mean Corpuscular Hgb 26.8 pg (27.0-31.0); Mean Corpuscular Volume 82.7 fL (80.0-94.0); Mean Platelet Volume 9.7 fL (7.4-10.4); Platelet Count 360 10^3/uL (130-400); Red Blood Cell Count 3.88 10^6/uL (4.70-6.10); Red Cell Dist. Width 13.9 % (11.5-14.5); White Blood Cell Count 8.7 10^3/uL (4.8-10.8)
[2023-09-09 15:15] VITALS: BP 111/72
--- NOTE | 2023-09-09 16:30 | HOSPNOTE ---
Hospice continues to follow with plan to meet and discuss hospice further with patient and son Seferino on Sunday when he arrives from [place]. Attending and CM aware.
[2023-09-09] MEDS: DILAUDID 0.5 MG IV (17:05)
[2023-09-09] MEDS: COMPAZINE 5 MG IV (17:06)
[2023-09-09 23:24] VITALS: BP 107/65
[2023-09-10 07:07] VITALS: BP 103/65
[2023-09-10] MEDS: PROTONIX IV 40 MG IV (08:28)
[2023-09-10] MEDS: NSS (PRESERVATIVE FREE) 10 ML IV (08:28)
[2023-09-10] MEDS: PACERONE 200 MG PO (08:28)
[2023-09-10] MEDS: CRESTOR 10 MG PO (08:29)
[2023-09-10 09:07] LABS: Hematocrit 32.4 % (39.0-52.0); Hemoglobin 10.1 g/dL (13.0-18.0); Mean Corp Hgb Conc. 31.2 g/dL (33.0-37.0); Mean Corpuscular Hgb 26.2 pg (27.0-31.0); Mean Corpuscular Volume 83.9 fL (80.0-94.0); Mean Platelet Volume 9.6 fL (7.4-10.4); Platelet Count 298 10^3/uL (130-400); Red Blood Cell Count 3.86 10^6/uL (4.70-6.10); Red Cell Dist. Width 13.7 % (11.5-14.5); White Blood Cell Count 9.1 10^3/uL (4.8-10.8)
--- NOTE | 2023-09-10 13:49 | W.PN.HOSP.TC ---
Today's Communication/Plan
-
Continue supportive care
Continue current analgesic regimen
[facility].
Assessment / Plan
Assessment / Plan
Physical exam:
General: Acute and chronically ill
HEENT: Trach stoma without abnormality. Normocephalic, Atraumatic and Moist Mucous Membranes
Respiratory: Clear to Auscultation; Negative Wheezes, Rales or Rhonchi
Cardiac: Regular Rhythm and S1/S2
GI: Soft, Nontender and Nondistended
Musculoskeletal: No Clubbing, No Cyanosis and No Edema
Neuro: Awake, Alert and Oriented
Psych: Calm
A/P:
Impression:
Patient is an 83y M with PMH significant for CHF, A-Fib and history of laryngeal and colon cancers who presents to ED complaining of fatigue and dyspnea. 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
Gastrointestinal hemorrhage/presentation with melena
Acute anemia secondary to blood loss likely related to anticoagulation with Eliquis.
Dysphagia/odynophagia.
Non-GA troponin elevation.
Acute on chronic hypotension on arrival with no evidence of shock
Conditions prior to admission:
Chronic CHF preserved EF
Paroxysmal atrial fibrillation/atrial flutter diagnosed in 2022
Anticoagulation with Eliquis
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
History of colon carcinoma in 2004 status post partial colectomy
History of TIA/CVA/amaurosis fugax
Dyslipidemia
CAD by history.
Pulmonary nodules.
Chronic sacral wounds
Plan:
Presentation with symptomatic anemia
Hypovolemia with transient hypotension secondary to above.
Noted hemoglobin dropped by 4 g from 13-9 since last hospitalization.
Suspect upper GI source given melena
Anticoagulated with Eliquis in addition to recently placed on doxycycline
Hemoglobin plateau
Blood pressure improved with IV fluid bolus
EGD 09/04: Large circumferential GEJ mass extending 7 cm into the esophagus and drawn 3 cm into the stomach. Not fully obstructive. Pathology consistent with adenocarcinoma
Discussed with GI and oncology.
CT scan of the chest abdomen pelvis consistent with metastatic disease.
Discussion with patient as well as patient's son over the phone by Dr Arenas. Patient is not a candidate and also declining aggressive treatment including systemic therapy
Hospice evaluation placed-->I discussed with hospice nurse on 09/07 and they are planning to have a discussion and family meeting with son and patient this coming Sunday.
Neurologic and likely malignant pain in the epigastrium. Will cont oxycodone/hydromorphone
Monitor serial hemoglobin
IV PPI twice daily for another 24 hours with eventual transition to oral.
Diet has been advanced to solids and tolerating well.
Eliquis has been stopped.
Hemoglobin today 09/08 stable at 10.4
Dysphagia/odynophagia
Patient reports recent issues with swallowing.
Speech evaluation
Diet has been advanced with aspiration precautions.
Patient does not like current diet that much but awaiting for hospice discussion prior to advancing.
GI evaluation as above
Non-GA troponin elevation
CAD.
Chest pain-free.
ECG with no ischemia with generalized flattening T waves.
Follow troponin to peak.
Cardiology input appreciated.
Metoprolol had to be held due to hypotension.
Paroxysmal atrial fibrillation
Continue amiodarone
Hold Eliquis
Chronic CHF preserved EF.
Echocardiogram 07/24 with EF of 50 to 60%, mild LVH, mild MR mild AI, mild to severe TR with PA systolic pressure 45 mmHg.
Hypotensive on admission now improved as BP close to baseline at 90s.
Follow serial hemoglobin, consider transfusion if drops below 8�8 0.5
Patient has no oral intake and marginal BP.
Will hold Lasix for now since blood pressure was soft and not eating much yet. Can consider restart in 24-48 Hrs.
Sacral wound care.
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 Fortunately patient is a poor candidate for systemic and surgical treatment. Reviewed oncology correspondence.
Discussed with hospice nurse on 09/07 and they are planning to have a discussion and family meeting with son and patient this coming Sunday. Discussed with attending RN today.
Dr. Arenas discussed with patient and patient's son Seferino over the phone and according to patient wishes CODE STATUS changed to DNR. Confirmed myself with patient and agrees to continue DNR.
Anticipated Discharge: 24 - 48 hours
Subjective/Interval History
-
Date of Service: September 10, 2023
Objective Data
-
Labs:
Laboratory Results
09/10/23
08:29
WBC 9.1
Hgb 10.1 L
Hct 32.4 L
Plt Count 298
Vital Signs:
Vital Signs
Temp Pulse Resp BP Pulse Ox
98.3 F 83 16 103/65 99
09/10/23 07:07 09/10/23 07:07 09/10/23 07:07 09/10/23 08:28 09/10/23 07:07
I&O
09/09/23 09/10/23 09/11/23
06:59 06:59 06:59
Intake Total 270 / 270 960 / 960
Output Total 280 / 280 400 / 400
Balance -10 / -10 560 / 560
Physical Exam
-
General: Well Developed and No Apparent Distress
HEENT: Normocephalic, Atraumatic, Moist Mucous Membranes and Tracheotomy
Respiratory: Clear to Auscultation
Cardiac: Regular Rhythm and S1/S2; Negative Murmur, Rub or Gallop
GI: Soft, Nontender, Nondistended and Normal Bowel Sounds; Negative Organomegaly
Rectal: Deferred by Provider
Musculoskeletal: No Clubbing, No Cyanosis and No Edema
Skin: Negative Rash
Neuro: Awake, Alert, Oriented and Nonfocal/Grossly Intact
--- NOTE | 2023-09-10 15:12 | CM ---
Awaiting son's arrival from [place] on Sunday09/11/23, to discuss hospice and hospice options with patient and [facility] hospice team.
[2023-09-10 15:49] VITALS: BP 109/69
--- NOTE | 2023-09-10 17:15 | VATNOTE ---
Earlier this AM, this VAT RN noted swelling in pt's R hand/lower arm. Hospitalist notified and U/S was suggested. Per MD, pt is not an anticoagulant candidate, so no U/S was ordered. Warm compresses recommended. Will continue to monitor.
[2023-09-10] MEDS: COMPAZINE 5 MG IV (19:41)
[2023-09-10] MEDS: ROXICODONE 5 MG PO (19:42)
[2023-09-10] MEDS: PROTONIX 40 MG PO (19:42)
[2023-09-10 23:16] VITALS: BP 110/69
[2023-09-11] MEDS: ROXICODONE 5 MG PO (06:03)
[2023-09-11 07:10] VITALS: BP 99/60
[2023-09-11] MEDS: CRESTOR 10 MG PO (09:15)
[2023-09-11] MEDS: PROTONIX 40 MG PO ×2 (09:15→21:20)
[2023-09-11] MEDS: PACERONE 200 MG PO (09:16)
--- NOTE | 2023-09-11 10:51 | CM ---
Patient son is here with [facility] client relations representative Linh Persaud, Hospice client relations representative aware and plan is for her to meet with them to discuss options. Patient wants to return to home to get paperwork but [facility] rep is stating that patient cannot return home. CM
will continue to follow for discharge planning needs.
Plan; TBD
--- NOTE | 2023-09-11 11:24 | HOSPNOTE ---
Spoke with son and patient about hospice and the philosophy. The [place] and is unsure of the plan which will be best for patient. The son feels going home is not an option. There was also a woman from the [facility] here to discuss benefits.
Case management aware of above. Will continue to follow.
--- NOTE | 2023-09-11 13:40 | CM ---
Patient seen at bedside with Linh Persaud LCSW and patient son. [facility] hospice met with patient, and son, per Hospice plan is for patient to go to SNF/hospice in [facility]. CM sent referral to [facility] hospice, and spoke with Kota who indicated they were only
Short term 3-5 days and he would talk to son about SNF options in [facility]. CM called and spoke with Dorina Mena from [facility] who is the contact for non- [place] placements and she sent CM the list of SNF options with [facility] contract. Clinical
information also sent encrypted to her at her request to determine options in [facility], or [facility]. CM spoke with son and sent referrals to [facility] and to [facility] who have contracts with the [place]. [facility] has availability and would use [facility]ice who also has a contract with [facility]. CM awaiting responses from SNF options. CM will continue to follow for discharge planning needs.
Plan; SNF for hospice; [facility] contract dependent.
[2023-09-11 14:01] VITALS: BP 116/73; PULSE 91; O2SAT 97
[2023-09-11 15:31] VITALS: BP 113/68
--- NOTE | 2023-09-11 15:59 | W.PN.HOSP.TC ---
Today's Communication/Plan
-
Continue supportive care per
Pending discharge with initiation of hospice.
Assessment / Plan
Assessment / Plan
Impression:
Patient is an 83y M with PMH significant for CHF, A-Fib and history of laryngeal and colon cancers who presents to ED complaining of fatigue and dyspnea. 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
Gastrointestinal hemorrhage/presentation with melena
Acute anemia secondary to blood loss likely related to anticoagulation with Eliquis.
Dysphagia/odynophagia.
Nonischemic cardiac injury
Acute on chronic hypotension on arrival with no evidence of shock
Conditions prior to admission:
Chronic CHF preserved EF
Paroxysmal atrial fibrillation/atrial flutter diagnosed in 2022
Anticoagulation with Eliquis
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
History of colon carcinoma in 2004 status post partial colectomy
History of TIA/CVA/amaurosis fugax
Dyslipidemia
CAD by history.
Pulmonary nodules.
Chronic sacral wounds
Plan:
Presentation with symptomatic anemia
Hypovolemia with transient hypotension secondary to above.
Noted hemoglobin dropped by 4 g from 13-9 since last hospitalization.
Suspect upper GI source given melena
Anticoagulated with Eliquis in addition to recently placed on doxycycline
Hemoglobin plateau
Blood pressure improved with IV fluid bolus
EGD 09/04: Large circumferential GEJ mass extending 7 cm into the esophagus and drawn 3 cm into the stomach. Not fully obstructive. Pathology consistent with adenocarcinoma
Discussed with GI and oncology.
CT scan of the chest abdomen pelvis consistent with metastatic disease.
Discussion with patient as well as patient's son over the phone by Dr Arenas. Patient is not a candidate and also declining aggressive treatment including systemic therapy
Hospice evaluation placed-->I discussed with hospice nurse on 09/07 and they are planning to have a discussion and family meeting with son and patient this coming Sunday.
Neurologic and likely malignant pain in the epigastrium. Will cont oxycodone/hydromorphone
Monitor serial hemoglobin
IV PPI twice daily for another 24 hours with eventual transition to oral.
Diet has been advanced to solids and tolerating well.
Eliquis has been stopped.
Hemoglobin today 09/08 stable at 10.4
Dysphagia/odynophagia
Patient reports recent issues with swallowing.
Speech evaluation
Diet has been advanced with aspiration precautions.
Patient does not like current diet that much but awaiting for hospice discussion prior to advancing.
GI evaluation as above
Nonischemic cardiac injury in the settings of acute anemia.
CAD.
Chest pain-free.
ECG with no ischemia with generalized flattening T waves.
Follow troponin to peak.
Cardiology input appreciated.
Metoprolol had to be held due to hypotension.
Paroxysmal atrial fibrillation
Continue amiodarone
Hold Eliquis
Chronic CHF preserved EF.
Echocardiogram 07/24 with EF of 50 to 60%, mild LVH, mild MR mild AI, mild to severe TR with PA systolic pressure 45 mmHg.
Hypotensive on admission now improved as BP close to baseline at 90s.
Follow serial hemoglobin, consider transfusion if drops below 8�8 0.5
Patient has no oral intake and marginal BP.
Will hold Lasix for now since blood pressure was soft and not eating much yet. Can consider restart in 24-48 Hrs.
Sacral wound care.
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 Fortunately patient is a poor candidate for systemic and surgical treatment. Reviewed oncology correspondence.
Discussed with hospice nurse on 09/07 and they are planning to have a discussion and family meeting with son and patient this coming Sunday. Discussed with attending RN today.
Dr. Arenas discussed with patient and patient's son Seferino over the phone and according to patient wishes CODE STATUS changed to DNR. Confirmed myself with patient and agrees to continue DNR.
Anticipated Discharge: 24 - 48 hours
Subjective/Interval History
-
Date of Service: September 11, 2023
Objective Data
-
Vital Signs:
Vital Signs
Temp Pulse Resp BP Pulse Ox
98.1 F 86 16 113/68 94
09/11/23 15:31 09/11/23 15:31 09/11/23 15:31 09/11/23 15:31 09/11/23 15:31
I&O
09/10/23 09/11/23 09/12/23
06:59 06:59 06:59
Intake Total 960 / 960 1500 / 1500
Output Total 400 / 400
Balance 560 / 560 1500 / 1500
Physical Exam
-
General: Well Developed and No Apparent Distress
HEENT: Normocephalic, Atraumatic and Moist Mucous Membranes
Respiratory: Clear to Auscultation
Cardiac: Regular Rhythm and S1/S2; Negative Murmur, Rub or Gallop
GI: Soft, Nontender, Nondistended and Normal Bowel Sounds; Negative Organomegaly
Rectal: Deferred by Provider
Musculoskeletal: No Clubbing, No Cyanosis and No Edema
Skin: Negative Rash
Neuro: Nonfocal/Grossly Intact
--- NOTE | 2023-09-11 17:02 | PTCARENOTE ---
This RN went in to give requested PRN compazine, brought the medication back into the room while pt was shaving his face with PCT. Pt shoved medication out of the way and mouthed 'I just want to shave, I need a bandage for my arm.' This RN got a
bandage for the patient and pt also shoved bandage away in anger. Pt visibly upset. Pt requesting to be left alone at this time.
[2023-09-11] MEDS: COMPAZINE 5 MG IV (22:06)
[2023-09-11] MEDS: MAALOX 30 ML PO (22:07)
[2023-09-11 23:05] VITALS: BP 107/65
--- NOTE | 2023-09-12 05:44 | PTCARENOTE ---
Addendum entered by Gisela Humphries RN 09/12/23 05:48:
Pt's Lasix on HOLD due to soft BP's, d/w pt. Will relay pt concerns to dayshift RN to review with hospitalist on rounds this AM.
Original Note:
Pt urinated ~ 400cc overnight. This morning pt c/o feeling the urge to urinate, states he has been trying to pee for 2 hours without success. Bladder scanned pt for 102cc. Discussed bladder scan/straight cath protocol with pt, plan of care updated.
Pt educated to continue his efforts to urinate and alert staff if he is successful. Pt agreeable to current plan.
--- NOTE | 2023-09-12 06:33 | W.PN.UPDATE ---
Update Note
Progress Note Update
Reviewed chart.
Plans noted to initiate hospice in [place] SNF upon discharge shortly.
Will sign off.
[2023-09-12 07:10] VITALS: BP 98/50
[2023-09-12] MEDS: CRESTOR 10 MG PO (07:46)
[2023-09-12] MEDS: PACERONE 200 MG PO (07:46)
[2023-09-12] MEDS: PROTONIX 40 MG PO ×2 (07:46→21:23)
[2023-09-12] MEDS: ROXICODONE 5 MG PO ×2 (07:50→16:54)
--- NOTE | 2023-09-12 14:50 | WOUNDNOTE ---
WOC RN note: Dewey Ruiz re: recommend air mattress or whatever air mattress they use for hospice care at SNF or home. He has a stage 3 sacral pressure injury.
[2023-09-12 14:51] VITALS: BP 116/67; BP 139/73; PULSE 92; O2SAT 97
[2023-09-12 15:20] VITALS: BP 105/65
--- NOTE | 2023-09-12 16:13 | W.PN.HOSP.TC ---
Today's Communication/Plan
-
Relatively stable with controlled pain
Ongoing disposition efforts to alf facility with hospice initiation.
Assessment / Plan
Assessment / Plan
Impression:
Patient is an 83y M with PMH significant for CHF, A-Fib and history of laryngeal and colon cancers who presents to ED complaining of fatigue and dyspnea. 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
Gastrointestinal hemorrhage/presentation with melena
Acute anemia secondary to blood loss likely related to anticoagulation with Eliquis.
Dysphagia/odynophagia.
Nonischemic cardiac injury
Acute on chronic hypotension on arrival with no evidence of shock
Conditions prior to admission:
Chronic CHF preserved EF
Paroxysmal atrial fibrillation/atrial flutter diagnosed in 2022
Anticoagulation with Eliquis
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
History of colon carcinoma in 2004 status post partial colectomy
History of TIA/CVA/amaurosis fugax
Dyslipidemia
CAD by history.
Pulmonary nodules.
Chronic sacral wounds
Plan:
Presentation with symptomatic anemia
Hypovolemia with transient hypotension secondary to above.
Noted hemoglobin dropped by 4 g from 13-9 since last hospitalization.
Suspect upper GI source given melena
Anticoagulated with Eliquis in addition to recently placed on doxycycline
Hemoglobin plateau
Blood pressure improved with IV fluid bolus
EGD 09/04: Large circumferential GEJ mass extending 7 cm into the esophagus and drawn 3 cm into the stomach. Not fully obstructive. Pathology consistent with adenocarcinoma
Discussed with GI and oncology.
CT scan of the chest abdomen pelvis consistent with metastatic disease.
Discussion with patient as well as patient's son over the phone by Dr Arenas. Patient is not a candidate and also declining aggressive treatment including systemic therapy
Hospice evaluation placed-->I discussed with hospice nurse on 09/07 and they are planning to have a discussion and family meeting with son and patient this coming Sunday.
Neurologic and likely malignant pain in the epigastrium. Will cont oxycodone/hydromorphone
Monitor serial hemoglobin
IV PPI twice daily for another 24 hours with eventual transition to oral.
Diet has been advanced to solids and tolerating well.
Eliquis has been stopped.
Hemoglobin today 09/08 stable at 10.4
Dysphagia/odynophagia
Patient reports recent issues with swallowing.
Speech evaluation
Diet has been advanced with aspiration precautions.
Patient does not like current diet that much but awaiting for hospice discussion prior to advancing.
GI evaluation as above
Nonischemic cardiac injury in the settings of acute anemia.
CAD.
Chest pain-free.
ECG with no ischemia with generalized flattening T waves.
Follow troponin to peak.
Cardiology input appreciated.
Metoprolol had to be held due to hypotension.
Paroxysmal atrial fibrillation
Continue amiodarone
Hold Eliquis
Chronic CHF preserved EF.
Echocardiogram 07/24 with EF of 50 to 60%, mild LVH, mild MR mild AI, mild to severe TR with PA systolic pressure 45 mmHg.
Hypotensive on admission now improved as BP close to baseline at 90s.
Follow serial hemoglobin, consider transfusion if drops below 8�8 0.5
Patient has no oral intake and marginal BP.
Will hold Lasix for now since blood pressure was soft and not eating much yet. Can consider restart in 24-48 Hrs.
Sacral wound care.
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 Fortunately patient is a poor candidate for systemic and surgical treatment. Reviewed oncology correspondence.
Discussed with hospice nurse on 09/07 and they are planning to have a discussion and family meeting with son and patient this coming Sunday. Discussed with attending RN today.
Dr. Arenas discussed with patient and patient's son Seferino over the phone and according to patient wishes CODE STATUS changed to DNR. Confirmed myself with patient and agrees to continue DNR.
Anticipated Discharge: 24 - 48 hours
Subjective/Interval History
-
Date of Service: September 12, 2023
Objective Data
-
Vital Signs:
Vital Signs
Temp Pulse Resp BP Pulse Ox
98.0 F 81 16 105/65 99
09/12/23 15:20 09/12/23 15:20 09/12/23 15:20 09/12/23 15:20 09/12/23 15:20
I&O
09/11/23 09/12/23 09/13/23
06:59 06:59 06:59
Intake Total 1500 / 1500 600 / 600
Output Total 275 / 275
Balance 1500 / 1500 325 / 325
Physical Exam
-
General: Well Developed and No Apparent Distress
HEENT: Normocephalic, Atraumatic and Moist Mucous Membranes
Respiratory: Clear to Auscultation
Cardiac: Regular Rhythm and S1/S2; Negative Murmur, Rub or Gallop
GI: Soft, Nontender, Nondistended and Normal Bowel Sounds; Negative Organomegaly
Rectal: Deferred by Provider
Musculoskeletal: No Clubbing, No Cyanosis and No Edema
Skin: Negative Rash
Neuro: Nonfocal/Grossly Intact
--- NOTE | 2023-09-12 16:35 | CM ---
Addendum entered by Sally Ruiz 09/13/23 17:12:
[place] Application form: Son told Dorina that patient can complete the form. This CM explained to patient who wasn't feeling well. He shook his head no. He motioned for me to leave on bedside table. He is unable to speak without speaking device. S/P
Laryngeal carcinoma with postresection and tracheostomy. CM offered to assist. Kept motioning to leave on table.
Addendum entered by Sally Ruiz 09/13/23 16:37:
Received confirmation that [facility] fax was transmitted. Awaiting response from Admissions, Mariposa Donohue, @ [phone].
Zip-[phone].
Addendum entered by Sally Ruiz 09/13/23 11:54:
Received call from Mariposa Donohue, Reference Archivist @ [facility]. Referral has been faxed for her review.
Addendum entered by Sally Ruiz 09/13/23 11:46:
Received call from Dorina. She has requested I send records to [facility] @ [address] [place] [address] for placement. I have called them and left a message to contact me. Dorina has sent a document 'Application for Extended Care
Services' which needs to be
completed. It is concerning financial information. The document has been forwarded to patient's son at this time. CM requested he forward to [facility] when completed.
Original Note:
Called and spoke with son today regarding discharge plan of care. He is back in [place]. He is aware that [facility] has accepted patient and [facility] is willing to initiate hospice. He is amenable to this plan however, prefers patient
transfer to [place] closer to him so he can spend more time with his father in his final days.
Also received call from KYM Arreaga, JANEL from the office of [facility] ([phone]). She was introducing herself and role. She is familiar with Ann Mena, [facility] ([phone] Ext [phone] or
[phone]) and Linh Persaud [facility], [facility] ([phone]).
Ann Mena called this CM and updated on her efforts to find placement for patient in [place]. She [place] get [place] [facility] She then tried to find a [place]. She was told that hospice is not covered in [place] facilities. She is going to call the son to discuss.
Patient's son has started an e-mail chain between himself, Linh Cam and this CM.
Whitley does not need [facility] to call with updates. She will call when she needs information.
[2023-09-12 23:31] VITALS: BP 99/59
[2023-09-13 07:20] VITALS: BP 103/55
[2023-09-13] MEDS: CRESTOR 10 MG PO (08:38)
[2023-09-13] MEDS: PROTONIX 40 MG PO ×2 (08:39→20:12)
[2023-09-13] MEDS: PACERONE 200 MG PO (08:39)
[2023-09-13] MEDS: ROXICODONE 5 MG PO (10:09)
[2023-09-13 10:54] VITALS: BP 116/71; PULSE 86; O2SAT 99
--- NOTE | 2023-09-13 11:23 | WOUNDNOTE ---
R CALF (LATERAL POSTERIOR)
--- NOTE | 2023-09-13 11:24 | WOUNDNOTE ---
R CALF (LATERAL POSTERIOR)
--- NOTE | 2023-09-13 11:29 | WOUNDNOTE ---
WOC RN note: Hospice care is planned when transferred to SNF. Buttocks ulcers improved, coccyx ulcer remains same. L elbow abrasion smaller. RLE ulcer about the same. +1-2 LE edema. Skin on heels intact. Patient on a waffle air overlay. PO intake
has been poor. Dressing changed on RLE, L elbow and sacral/coccyx. Current wound care appropriate. Will follow as needed.
--- NOTE | 2023-09-13 12:57 | W.PN.HOSP.TC ---
Today's Communication/Plan
-
Pending placement
Assessment / Plan
Assessment / Plan
Impression:
Patient is an 83y M with PMH significant for CHF, A-Fib and history of laryngeal and colon cancers who presents to ED complaining of fatigue and dyspnea. 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
Gastrointestinal hemorrhage/presentation with melena
Acute anemia secondary to blood loss likely related to anticoagulation with Eliquis.
Dysphagia/odynophagia.
Nonischemic cardiac injury
Acute on chronic hypotension on arrival with no evidence of shock
Conditions prior to admission:
Chronic CHF preserved EF
Paroxysmal atrial fibrillation/atrial flutter diagnosed in 2022
Anticoagulation with Eliquis
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
History of colon carcinoma in 2004 status post partial colectomy
History of TIA/CVA/amaurosis fugax
Dyslipidemia
CAD by history.
Pulmonary nodules.
Chronic sacral wounds
Plan:
Presentation with symptomatic anemia
Hypovolemia with transient hypotension secondary to above.
Noted hemoglobin dropped by 4 g from 13-9 since last hospitalization.
Suspect upper GI source given melena
Anticoagulated with Eliquis in addition to recently placed on doxycycline
Hemoglobin plateau
Blood pressure improved with IV fluid bolus
EGD 09/04: Large circumferential GEJ mass extending 7 cm into the esophagus and drawn 3 cm into the stomach. Not fully obstructive. Pathology consistent with adenocarcinoma
Discussed with GI and oncology.
CT scan of the chest abdomen pelvis consistent with metastatic disease.
Discussion with patient as well as patient's son over the phone by Dr Arenas. Patient is not a candidate and also declining aggressive treatment including systemic therapy
Hospice evaluation placed-->I discussed with hospice nurse on 09/07 and they are planning to have a discussion and family meeting with son and patient this coming Sunday.
Neurologic and likely malignant pain in the epigastrium. Will cont oxycodone/hydromorphone
Monitor serial hemoglobin
IV PPI twice daily for another 24 hours with eventual transition to oral.
Diet has been advanced to solids and tolerating well.
Eliquis has been stopped.
Hemoglobin today 09/08 stable at 10.4
Dysphagia/odynophagia
Patient reports recent issues with swallowing.
Speech evaluation
Diet has been advanced with aspiration precautions.
Patient does not like current diet that much but awaiting for hospice discussion prior to advancing.
GI evaluation as above
Nonischemic cardiac injury in the settings of acute anemia.
CAD.
Chest pain-free.
ECG with no ischemia with generalized flattening T waves.
Follow troponin to peak.
Cardiology input appreciated.
Metoprolol had to be held due to hypotension.
Paroxysmal atrial fibrillation
Continue amiodarone
Hold Eliquis
Chronic CHF preserved EF.
Echocardiogram 07/24 with EF of 50 to 60%, mild LVH, mild MR mild AI, mild to severe TR with PA systolic pressure 45 mmHg.
Hypotensive on admission now improved as BP close to baseline at 90s.
Follow serial hemoglobin, consider transfusion if drops below 8�8 0.5
Patient has no oral intake and marginal BP.
Will hold Lasix for now since blood pressure was soft and not eating much yet. Can consider restart in 24-48 Hrs.
Sacral wound care.
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 Fortunately patient is a poor candidate for systemic and surgical treatment. Reviewed oncology correspondence.
Discussed with hospice nurse on 09/07 and they are planning to have a discussion and family meeting with son and patient this coming Sunday. Discussed with attending RN today.
Dr. Arenas discussed with patient and patient's son Seferino over the phone and according to patient wishes CODE STATUS changed to DNR. Confirmed myself with patient and agrees to continue DNR.
Anticipated Discharge: Within 24 hours
Subjective/Interval History
-
Date of Service: September 13, 2023
Objective Data
-
Vital Signs:
Vital Signs
Temp Pulse Resp BP Pulse Ox
98.4 F 91 16 103/55 98
09/13/23 07:20 09/13/23 08:39 09/13/23 07:20 09/13/23 08:39 09/13/23 08:00
I&O
09/12/23 09/13/23 09/14/23
06:59 06:59 06:59
Intake Total 600 / 600 300 / 300
Output Total 275 / 275 175 / 175 150 / 150
Balance 325 / 325 125 / 125 -150 / -150
Physical Exam
-
General: Well Developed and No Apparent Distress
HEENT: Normocephalic, Atraumatic and Moist Mucous Membranes
Respiratory: Clear to Auscultation
Cardiac: Regular Rhythm and S1/S2; Negative Murmur, Rub or Gallop
GI: Soft, Nontender, Nondistended and Normal Bowel Sounds; Negative Organomegaly
Rectal: Deferred by Provider
Musculoskeletal: No Clubbing, No Cyanosis and No Edema
Skin: Negative Rash
Neuro: Nonfocal/Grossly Intact
[2023-09-13 15:10] VITALS: BP 106/60
[2023-09-13 15:51] VITALS: BP 116/72; PULSE 80; O2SAT 99
[2023-09-13 23:18] VITALS: BP 100/60
[2023-09-13] MEDS: DILAUDID IV (23:56)
[2023-09-14 07:10] VITALS: BP 96/56
[2023-09-14] MEDS: PACERONE 200 MG PO (08:27)
[2023-09-14] MEDS: CRESTOR 10 MG PO (08:29)
[2023-09-14] MEDS: PROTONIX 40 MG PO ×2 (08:29→20:15)
[2023-09-14 15:05] VITALS: BP 109/66
--- NOTE | 2023-09-14 15:52 | W.PN.HOSP.TC ---
Today's Communication/Plan
-
Continue supportive care
Pending placement.
Assessment / Plan
Assessment / Plan
Impression:
Patient is an 83y M with PMH significant for CHF, A-Fib and history of laryngeal and colon cancers who presents to ED complaining of fatigue and dyspnea. 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
Gastrointestinal hemorrhage/presentation with melena
Acute anemia secondary to blood loss likely related to anticoagulation with Eliquis.
Dysphagia/odynophagia.
Nonischemic cardiac injury
Acute on chronic hypotension on arrival with no evidence of shock
Conditions prior to admission:
Chronic CHF preserved EF
Paroxysmal atrial fibrillation/atrial flutter diagnosed in 2022
Anticoagulation with Eliquis
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
History of colon carcinoma in 2004 status post partial colectomy
History of TIA/CVA/amaurosis fugax
Dyslipidemia
CAD by history.
Pulmonary nodules.
Chronic sacral wounds
Plan:
Presentation with symptomatic anemia
Hypovolemia with transient hypotension secondary to above.
Noted hemoglobin dropped by 4 g from 13-9 since last hospitalization.
Suspect upper GI source given melena
Anticoagulated with Eliquis in addition to recently placed on doxycycline
Hemoglobin plateau
Blood pressure improved with IV fluid bolus
EGD 09/04: Large circumferential GEJ mass extending 7 cm into the esophagus and drawn 3 cm into the stomach. Not fully obstructive. Pathology consistent with adenocarcinoma
Discussed with GI and oncology.
CT scan of the chest abdomen pelvis consistent with metastatic disease.
Discussion with patient as well as patient's son over the phone by Dr Arenas. Patient is not a candidate and also declining aggressive treatment including systemic therapy
Hospice evaluation placed-->I discussed with hospice nurse on 09/07 and they are planning to have a discussion and family meeting with son and patient this coming Sunday.
Neurologic and likely malignant pain in the epigastrium. Will cont oxycodone/hydromorphone
Monitor serial hemoglobin
IV PPI twice daily for another 24 hours with eventual transition to oral.
Diet has been advanced to solids and tolerating well.
Eliquis has been stopped.
Hemoglobin today 09/08 stable at 10.4
Dysphagia/odynophagia
Patient reports recent issues with swallowing.
Speech evaluation
Diet has been advanced with aspiration precautions.
Patient does not like current diet that much but awaiting for hospice discussion prior to advancing.
GI evaluation as above
Nonischemic cardiac injury in the settings of acute anemia.
CAD.
Chest pain-free.
ECG with no ischemia with generalized flattening T waves.
Follow troponin to peak.
Cardiology input appreciated.
Metoprolol had to be held due to hypotension.
Paroxysmal atrial fibrillation
Continue amiodarone
Hold Eliquis
Chronic CHF preserved EF.
Echocardiogram 07/24 with EF of 50 to 60%, mild LVH, mild MR mild AI, mild to severe TR with PA systolic pressure 45 mmHg.
Hypotensive on admission now improved as BP close to baseline at 90s.
Follow serial hemoglobin, consider transfusion if drops below 8�8 0.5
Patient has no oral intake and marginal BP.
Will hold Lasix for now since blood pressure was soft and not eating much yet. Can consider restart in 24-48 Hrs.
Sacral wound care.
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 Fortunately patient is a poor candidate for systemic and surgical treatment. Reviewed oncology correspondence.
Discussed with hospice nurse on 09/07 and they are planning to have a discussion and family meeting with son and patient this coming Sunday. Discussed with attending RN today.
Dr. Arenas discussed with patient and patient's son Seferino over the phone and according to patient wishes CODE STATUS changed to DNR. Confirmed myself with patient and agrees to continue DNR.
Anticipated Discharge: 24 - 48 hours
Subjective/Interval History
-
Date of Service: September 14, 2023
Objective Data
-
Vital Signs:
Vital Signs
Temp Pulse Resp BP Pulse Ox
98.2 F 83 14 109/66 98
09/14/23 15:05 09/14/23 15:05 09/14/23 15:05 09/14/23 15:05 09/14/23 15:05
I&O
09/13/23 09/14/23 09/15/23
06:59 06:59 06:59
Intake Total 300 / 300 600 / 600
Output Total 175 / 175 625 / 625
Balance 125 / 125 -25 / -25
Physical Exam
-
General: Well Developed and No Apparent Distress
HEENT: Normocephalic, Atraumatic and Moist Mucous Membranes
Respiratory: Clear to Auscultation
Cardiac: Regular Rhythm and S1/S2; Negative Murmur, Rub or Gallop
GI: Soft, Nontender, Nondistended and Normal Bowel Sounds; Negative Organomegaly
Rectal: Deferred by Provider
Musculoskeletal: No Clubbing, No Cyanosis and No Edema
Skin: Negative Rash
Neuro: Nonfocal/Grossly Intact
--- NOTE | 2023-09-14 17:18 | CM ---
Received a call from the Vinnie OMichael #[phone]. Vinnie works w/ Whitley at the [facility] Office.
Vinnie reported that determination is unknown at this time for patient; financial application has not been received
CM will continue to follow and support transition to Hospice in [place]. Transportation to [place] needs to determined
[2023-09-14] MEDS: ROXICODONE 5 MG PO ×2 (20:15)
[2023-09-14 23:41] VITALS: BP 90/58
[2023-09-15] MEDS: ROXICODONE 5 MG PO ×3 (02:23→19:55)
[2023-09-15 07:10] VITALS: BP 99/62
[2023-09-15] MEDS: PROTONIX 40 MG PO ×2 (08:49→19:55)
[2023-09-15] MEDS: PACERONE 200 MG PO (08:49)
[2023-09-15] MEDS: CRESTOR 10 MG PO (08:49)
[2023-09-15 15:05] VITALS: BP 104/65
--- NOTE | 2023-09-15 15:22 | W.PN.HOSP.TC ---
Today's Communication/Plan
-
Continue supportive care
Pending disposition to half-way facility with hospice initiation
Assessment / Plan
Assessment / Plan
Impression:
Patient is an 83y M with PMH significant for CHF, A-Fib and history of laryngeal and colon cancers who presents to ED complaining of fatigue and dyspnea. 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
Gastrointestinal hemorrhage/presentation with melena
Acute anemia secondary to blood loss likely related to anticoagulation with Eliquis.
Dysphagia/odynophagia.
Nonischemic cardiac injury
Acute on chronic hypotension on arrival with no evidence of shock
Conditions prior to admission:
Chronic CHF preserved EF
Paroxysmal atrial fibrillation/atrial flutter diagnosed in 2022
Anticoagulation with Eliquis
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
History of colon carcinoma in 2004 status post partial colectomy
History of TIA/CVA/amaurosis fugax
Dyslipidemia
CAD by history.
Pulmonary nodules.
Chronic sacral wounds
Plan:
Presentation with symptomatic anemia
Hypovolemia with transient hypotension secondary to above.
Noted hemoglobin dropped by 4 g from 13-9 since last hospitalization.
Suspect upper GI source given melena
Anticoagulated with Eliquis in addition to recently placed on doxycycline
Hemoglobin plateau
Blood pressure improved with IV fluid bolus
EGD 09/04: Large circumferential GEJ mass extending 7 cm into the esophagus and drawn 3 cm into the stomach. Not fully obstructive. Pathology consistent with adenocarcinoma
Discussed with GI and oncology.
CT scan of the chest abdomen pelvis consistent with metastatic disease.
Discussion with patient as well as patient's son over the phone by Dr Arenas. Patient is not a candidate and also declining aggressive treatment including systemic therapy
Hospice evaluation placed-->I discussed with hospice nurse on 09/07 and they are planning to have a discussion and family meeting with son and patient this coming Sunday.
Neurologic and likely malignant pain in the epigastrium. Will cont oxycodone/hydromorphone
Monitor serial hemoglobin
IV PPI twice daily for another 24 hours with eventual transition to oral.
Diet has been advanced to solids and tolerating well.
Eliquis has been stopped.
Hemoglobin today 09/08 stable at 10.4
Dysphagia/odynophagia
Patient reports recent issues with swallowing.
Speech evaluation
Diet has been advanced with aspiration precautions.
Patient does not like current diet that much but awaiting for hospice discussion prior to advancing.
GI evaluation as above
Nonischemic cardiac injury in the settings of acute anemia.
CAD.
Chest pain-free.
ECG with no ischemia with generalized flattening T waves.
Follow troponin to peak.
Cardiology input appreciated.
Metoprolol had to be held due to hypotension.
Paroxysmal atrial fibrillation
Continue amiodarone
Hold Eliquis
Chronic CHF preserved EF.
Echocardiogram 07/24 with EF of 50 to 60%, mild LVH, mild MR mild AI, mild to severe TR with PA systolic pressure 45 mmHg.
Hypotensive on admission now improved as BP close to baseline at 90s.
Follow serial hemoglobin, consider transfusion if drops below 8�8 0.5
Patient has no oral intake and marginal BP.
Will hold Lasix for now since blood pressure was soft and not eating much yet. Can consider restart in 24-48 Hrs.
Sacral wound care.
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 Fortunately patient is a poor candidate for systemic and surgical treatment. Reviewed oncology correspondence.
Discussed with hospice nurse on 09/07 and they are planning to have a discussion and family meeting with son and patient this coming Sunday. Discussed with attending RN today.
Dr. Arenas discussed with patient and patient's son Seferino over the phone and according to patient wishes CODE STATUS changed to DNR. Confirmed myself with patient and agrees to continue DNR.
Anticipated Discharge: Within 24 hours
Subjective/Interval History
-
Date of Service: September 15, 2023
Objective Data
-
Vital Signs:
Vital Signs
Temp Pulse Resp BP Pulse Ox
96.7 F L 82 16 99/62 100
09/15/23 07:10 09/15/23 08:49 09/15/23 07:10 09/15/23 08:49 09/15/23 07:10
I&O
09/14/23 09/15/23 09/16/23
06:59 06:59 06:59
Intake Total 600 / 600 540 / 540
Output Total 625 / 625 390 / 390
Balance -25 / -25 150 / 150
Physical Exam
-
General: Well Developed and No Apparent Distress
HEENT: Normocephalic, Atraumatic and Moist Mucous Membranes
Respiratory: Clear to Auscultation
Cardiac: Regular Rhythm and S1/S2; Negative Murmur, Rub or Gallop
GI: Soft, Nontender, Nondistended and Normal Bowel Sounds; Negative Organomegaly
Rectal: Deferred by Provider
Musculoskeletal: No Clubbing, No Cyanosis and No Edema
Skin: Negative Rash
Neuro: Nonfocal/Grossly Intact
[2023-09-15] MEDS: NEURONTIN 600 MG PO ×2 (15:36→22:13)
[2023-09-15] MEDS: LMX 4 1 APPLIC TOPICAL (15:36)
[2023-09-15 23:31] VITALS: BP 87/51
[2023-09-16 06:00] VITALS: BMI 22.3
[2023-09-16 07:15] VITALS: BP 89/54
[2023-09-16] MEDS: PROTONIX 40 MG PO ×2 (08:03→19:26)
[2023-09-16] MEDS: CRESTOR 10 MG PO (08:03)
[2023-09-16] MEDS: NEURONTIN 600 MG PO ×3 (08:03→21:55)
[2023-09-16] MEDS: LMX 4 1 APPLIC TOPICAL (08:04)
[2023-09-16] MEDS: PACERONE PO (08:04)
--- NOTE | 2023-09-16 13:32 | W.PN.HOSP.TC ---
Today's Communication/Plan
-
Continue supportive care
[facility] with [facility] initiation.
Assessment / Plan
Assessment / Plan
Impression:
Patient is an 83y M with PMH significant for CHF, A-Fib and history of laryngeal and colon cancers who presents to ED complaining of fatigue and dyspnea. 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
Gastrointestinal hemorrhage/presentation with melena
Acute anemia secondary to blood loss likely related to anticoagulation with Eliquis.
Dysphagia/odynophagia.
Nonischemic cardiac injury
Acute on chronic hypotension on arrival with no evidence of shock
Conditions prior to admission:
Chronic CHF preserved EF
Paroxysmal atrial fibrillation/atrial flutter diagnosed in 2022
Anticoagulation with Eliquis
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
History of colon carcinoma in 2004 status post partial colectomy
History of TIA/CVA/amaurosis fugax
Dyslipidemia
CAD by history.
Pulmonary nodules.
Chronic sacral wounds
Plan:
Presentation with symptomatic anemia
Hypovolemia with transient hypotension secondary to above.
Noted hemoglobin dropped by 4 g from 13-9 since last hospitalization.
Suspect upper GI source given melena
Anticoagulated with Eliquis in addition to recently placed on doxycycline
Hemoglobin plateau
Blood pressure improved with IV fluid bolus
EGD 09/04: Large circumferential GEJ mass extending 7 cm into the esophagus and drawn 3 cm into the stomach. Not fully obstructive. Pathology consistent with adenocarcinoma
Discussed with GI and oncology.
CT scan of the chest abdomen pelvis consistent with metastatic disease.
Discussion with patient as well as patient's son over the phone by Dr Arenas. Patient is not a candidate and also declining aggressive treatment including systemic therapy
Hospice evaluation placed-->I discussed with hospice nurse on 09/07 and they are planning to have a discussion and family meeting with son and patient this coming Sunday.
Neurologic and likely malignant pain in the epigastrium. Will cont oxycodone/hydromorphone
Monitor serial hemoglobin
IV PPI twice daily for another 24 hours with eventual transition to oral.
Diet has been advanced to solids and tolerating well.
Eliquis has been stopped.
Hemoglobin today 09/08 stable at 10.4
Dysphagia/odynophagia
Patient reports recent issues with swallowing.
Speech evaluation
Diet has been advanced with aspiration precautions.
Patient does not like current diet that much but awaiting for hospice discussion prior to advancing.
GI evaluation as above
Nonischemic cardiac injury in the settings of acute anemia.
CAD.
Chest pain-free.
ECG with no ischemia with generalized flattening T waves.
Follow troponin to peak.
Cardiology input appreciated.
Metoprolol had to be held due to hypotension.
Paroxysmal atrial fibrillation
Continue amiodarone
Hold Eliquis
Chronic CHF preserved EF.
Echocardiogram 07/24 with EF of 50 to 60%, mild LVH, mild MR mild AI, mild to severe TR with PA systolic pressure 45 mmHg.
Hypotensive on admission now improved as BP close to baseline at 90s.
Follow serial hemoglobin, consider transfusion if drops below 8�8 0.5
Patient has no oral intake and marginal BP.
Will hold Lasix for now since blood pressure was soft and not eating much yet. Can consider restart in 24-48 Hrs.
Sacral wound care.
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 Fortunately patient is a poor candidate for systemic and surgical treatment. Reviewed oncology correspondence.
Discussed with hospice nurse on 09/07 and they are planning to have a discussion and family meeting with son and patient this coming Sunday. Discussed with attending RN today.
Dr. Arenas discussed with patient and patient's son Seferino over the phone and according to patient wishes CODE STATUS changed to DNR. Confirmed myself with patient and agrees to continue DNR.
Anticipated Discharge: 24 - 48 hours
Subjective/Interval History
-
Date of Service: September 16, 2023
Objective Data
-
Vital Signs:
Vital Signs
Temp Pulse Resp BP Pulse Ox
98.0 F 80 14 89/54 91
09/16/23 07:15 09/16/23 08:04 09/16/23 07:15 09/16/23 08:04 09/16/23 07:15
I&O
09/15/23 09/16/23 09/17/23
06:59 06:59 06:59
Intake Total 540 / 540 120 / 120
Output Total 390 / 390 250 / 250
Balance 150 / 150 -130 / -130
Physical Exam
-
General: Well Developed and No Apparent Distress
HEENT: Normocephalic, Atraumatic and Moist Mucous Membranes
Respiratory: Clear to Auscultation
Cardiac: Regular Rhythm and S1/S2; Negative Murmur, Rub or Gallop
GI: Soft, Nontender, Nondistended and Normal Bowel Sounds; Negative Organomegaly
Rectal: Deferred by Provider
Musculoskeletal: No Clubbing, No Cyanosis and No Edema
Skin: Negative Rash
Neuro: Nonfocal/Grossly Intact
[2023-09-16 15:05] VITALS: BP 94/61
[2023-09-16] MEDS: ROXICODONE 5 MG PO (19:26)
[2023-09-16 23:01] VITALS: BP 87/55
[2023-09-17] MEDS: ROXICODONE 5 MG PO (01:17)
--- NOTE | 2023-09-17 06:33 | PTCARENOTE ---
Patient used call waite. PCT was on her way to get patients weight. Patient requested to go into the bathroom. PCT attempted to get patient into bathroom, during this the patient let go of bowels on the way. The BM was bright red blood. patient
continued to have BM on toilet. Patient became light headed while on toilet and could not support his own weight. Moved patient to chair once patient stable enough to support his weight. Blood pressure was 113/68 and pulse was 86. Patient now stable
in chair.
[2023-09-17 07:45] VITALS: BP 93/58
[2023-09-17] MEDS: PACERONE 200 MG PO (08:06)
[2023-09-17] MEDS: NEURONTIN 600 MG PO ×3 (08:06→22:56)
[2023-09-17] MEDS: PROTONIX 40 MG PO ×2 (08:06→19:50)
[2023-09-17] MEDS: CRESTOR 10 MG PO (08:06)
[2023-09-17] MEDS: LMX 4 1 APPLIC TOPICAL (08:12)
--- NOTE | 2023-09-17 14:43 | W.PN.HOSP.TC ---
Today's Communication/Plan
-
Continue supportive care
Pending placement.
Assessment / Plan
Assessment / Plan
Impression:
Patient is an 83y M with PMH significant for CHF, A-Fib and history of laryngeal and colon cancers who presents to ED complaining of fatigue and dyspnea. 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
Gastrointestinal hemorrhage/presentation with melena
Acute anemia secondary to blood loss likely related to anticoagulation with Eliquis.
Dysphagia/odynophagia.
Nonischemic cardiac injury
Acute on chronic hypotension on arrival with no evidence of shock
Conditions prior to admission:
Chronic CHF preserved EF
Paroxysmal atrial fibrillation/atrial flutter diagnosed in 2022
Anticoagulation with Eliquis
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
History of colon carcinoma in 2004 status post partial colectomy
History of TIA/CVA/amaurosis fugax
Dyslipidemia
CAD by history.
Pulmonary nodules.
Chronic sacral wounds
Plan:
Presentation with symptomatic anemia
Hypovolemia with transient hypotension secondary to above.
Noted hemoglobin dropped by 4 g from 13-9 since last hospitalization.
Suspect upper GI source given melena
Anticoagulated with Eliquis in addition to recently placed on doxycycline
Hemoglobin plateau
Blood pressure improved with IV fluid bolus
EGD 09/04: Large circumferential GEJ mass extending 7 cm into the esophagus and drawn 3 cm into the stomach. Not fully obstructive. Pathology consistent with adenocarcinoma
Discussed with GI and oncology.
CT scan of the chest abdomen pelvis consistent with metastatic disease.
Discussion with patient as well as patient's son over the phone by Dr Arenas. Patient is not a candidate and also declining aggressive treatment including systemic therapy
Hospice evaluation placed-->I discussed with hospice nurse on 09/07 and they are planning to have a discussion and family meeting with son and patient this coming Sunday.
Neurologic and likely malignant pain in the epigastrium. Will cont oxycodone/hydromorphone
Monitor serial hemoglobin
IV PPI twice daily for another 24 hours with eventual transition to oral.
Diet has been advanced to solids and tolerating well.
Eliquis has been stopped.
Hemoglobin today 09/08 stable at 10.4
Dysphagia/odynophagia
Patient reports recent issues with swallowing.
Speech evaluation
Diet has been advanced with aspiration precautions.
Patient does not like current diet that much but awaiting for hospice discussion prior to advancing.
GI evaluation as above
Nonischemic cardiac injury in the settings of acute anemia.
CAD.
Chest pain-free.
ECG with no ischemia with generalized flattening T waves.
Follow troponin to peak.
Cardiology input appreciated.
Metoprolol had to be held due to hypotension.
Paroxysmal atrial fibrillation
Continue amiodarone
Hold Eliquis
Chronic CHF preserved EF.
Echocardiogram 07/24 with EF of 50 to 60%, mild LVH, mild MR mild AI, mild to severe TR with PA systolic pressure 45 mmHg.
Hypotensive on admission now improved as BP close to baseline at 90s.
Follow serial hemoglobin, consider transfusion if drops below 8�8 0.5
Patient has no oral intake and marginal BP.
Will hold Lasix for now since blood pressure was soft and not eating much yet. Can consider restart in 24-48 Hrs.
Sacral wound care.
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 Fortunately patient is a poor candidate for systemic and surgical treatment. Reviewed oncology correspondence.
Discussed with hospice nurse on 09/07 and they are planning to have a discussion and family meeting with son and patient this coming Sunday. Discussed with attending RN today.
Dr. Arenas discussed with patient and patient's son Seferino over the phone and according to patient wishes CODE STATUS changed to DNR. Confirmed myself with patient and agrees to continue DNR.
Anticipated Discharge: 24 - 48 hours
Subjective/Interval History
-
Date of Service: September 17, 2023
Objective Data
-
Vital Signs:
Vital Signs
Temp Pulse Resp BP Pulse Ox
97.3 F 75 16 93/58 97
09/17/23 07:45 09/17/23 08:06 09/17/23 07:45 09/17/23 08:06 09/17/23 07:45
I&O
09/16/23 09/17/23 09/18/23
06:59 06:59 06:59
Intake Total 120 / 120 810 / 810
Output Total 250 / 250 350 / 350
Balance -130 / -130 460 / 460
Physical Exam
-
General: Well Developed and No Apparent Distress
HEENT: Normocephalic, Atraumatic and Moist Mucous Membranes
Respiratory: Clear to Auscultation
Cardiac: Regular Rhythm and S1/S2; Negative Murmur, Rub or Gallop
GI: Soft, Nontender, Nondistended and Normal Bowel Sounds; Negative Organomegaly
Rectal: Deferred by Provider
Musculoskeletal: No Clubbing, No Cyanosis and No Edema
Skin: Negative Rash
Neuro: Nonfocal/Grossly Intact
[2023-09-17 15:34] VITALS: BP 95/63
--- NOTE | 2023-09-17 16:45 | CM ---
Addendum entered by Sally Ruiz 09/18/23 16:48:
[facility] and transport from to [place] in [facility]. Insurance says that Mr. Bacon has a $6,500.00 deductible of which he has satisfied $1,230.00, leaving a balance of $5,270.00. The ambulance quoted a knutson of $3,000.00 for
transport which mean all would be out of pocket.
Patient has been accepted to the [place] in [facility]. Anticipate discharge 09/21/23. Both [facility] and [facility] are working together to facilitate a transport up to [facility] at [facility]. Transport director from receiving facility is
Brian Gutierrez [phone].
Original Note:
Received call from Telephone Solicitor Supervisor at [facility]. They are unable to accept patient with a trach stoma. E-mailed patient's son and Dorina at the [place] notifying them of same. Attending ready to discharge patient. Son and Meegalla aware and
that we have an accepting facility at [facility]. Advised to consider discharging to [place] and then continue to work on transitioning to [place] facility. I have not received return response.
Son has travel arrangements on 10/01/23 and would like patient placed and settled prior to 10/01/23. [facility] is reviewing documents that were completed by son and forwarded previously by [facility].
Will follow-up on 09/18/23.
[2023-09-17 23:23] VITALS: BP 88/51
[2023-09-18 05:22] VITALS: BMI 23.3
[2023-09-18 07:17] VITALS: BP 86/56
[2023-09-18] MEDS: CRESTOR 10 MG PO (08:27)
[2023-09-18] MEDS: PROTONIX 40 MG PO ×2 (08:27→20:42)
[2023-09-18] MEDS: LMX 4 1 APPLIC TOPICAL (08:27)
[2023-09-18] MEDS: NEURONTIN 600 MG PO ×3 (08:27→21:01)
[2023-09-18] MEDS: PACERONE PO (08:28)
[2023-09-18] MEDS: PACERONE 200 MG PO (10:10)
[2023-09-18 15:35] VITALS: BP 103/59; PULSE 79; O2SAT 99
--- NOTE | 2023-09-18 15:38 | PTCARENOTE ---
Pt. having a productive cough with green, thick sputum coming out of trach stoma. MD made aware. Repeat labs and CXR ordered. Patient updated.
[2023-09-18 16:08] LABS: % Basophils 0.1 % (0-2); % Eosinophils 0.3 % (0-6); % Immature Granulocytes 0.4 % (0-0.5); % Lymphocytes 10.4 % (20.5-51.1); % Monocytes 6.3 % (1.7-9.3); % Neutrophils 82.5 % (42.2-75.2); Absolute Immature Granulocytes 0.1 10^3/uL (0-0.05); Absolute Lymphocytes 1.2 10^3/uL (1.2-3.4); Absolute Monocytes 0.7 10^3/uL (0.1-0.6); Absolute Neutrophils 9.5 10^3/uL (1.4-6.5); Hematocrit 31.7 % (39.0-52.0); Hemoglobin 10.1 g/dL (13.0-18.0); Mean Corp Hgb Conc. 31.9 g/dL (33.0-37.0); Mean Corpuscular Hgb 26.3 pg (27.0-31.0); Mean Corpuscular Volume 82.6 fL (80.0-94.0); Mean Platelet Volume 9.8 fL (7.4-10.4); Nucleated Red Blood Cells % 0 % (-); Platelet Count 253 10^3/uL (130-400); Red Blood Cell Count 3.84 10^6/uL (4.70-6.10); Red Cell Dist. Width 13.5 % (11.5-14.5); White Blood Cell Count 11.6 10^3/uL (4.8-10.8)
[2023-09-18 16:22] LABS: Blood Urea Nitrogen 25 mg/dl (9-20); Calcium 8.6 mg/dl (8.4-10.2); Carbon Dioxide 28 mmol/L (22-30); Chloride 101 mmol/L (98-107); Estimated Creatinine Clearance 56 ml/min; Glucose 89 mg/dl (70-99); Potassium 4.4 mmol/L (3.5-5.1); Sodium 131 mmol/L (135-145); eGFR > 60.00
[2023-09-18 16:50] VITALS: BP 103/59
--- NOTE | 2023-09-18 16:56 | W.PN.HOSP.TC ---
Today's Communication/Plan
-
Pending discharge with initiation of hospice.
Oral antibiotics and mucolytic's for bronchitis.
Assessment / Plan
Assessment / Plan
Impression:
Patient is an 83y M with PMH significant for CHF, A-Fib and history of laryngeal and colon cancers who presents to ED complaining of fatigue and dyspnea. 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
Gastrointestinal hemorrhage/presentation with melena
Acute anemia secondary to blood loss likely related to anticoagulation with Eliquis.
Dysphagia/odynophagia.
Nonischemic cardiac injury
Acute on chronic hypotension on arrival with no evidence of shock
Acute bronchitis
Conditions prior to admission:
Chronic CHF preserved EF
Paroxysmal atrial fibrillation/atrial flutter diagnosed in 2022
Anticoagulation with Eliquis
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
History of colon carcinoma in 2004 status post partial colectomy
History of TIA/CVA/amaurosis fugax
Dyslipidemia
CAD by history.
Pulmonary nodules.
Chronic sacral wounds
Plan:
Presentation with symptomatic anemia
Hypovolemia with transient hypotension secondary to above.
Noted hemoglobin dropped by 4 g from 13-9 since last hospitalization.
Suspect upper GI source given melena
Anticoagulated with Eliquis in addition to recently placed on doxycycline
Hemoglobin plateau
Blood pressure improved with IV fluid bolus
EGD 09/04: Large circumferential GEJ mass extending 7 cm into the esophagus and drawn 3 cm into the stomach. Not fully obstructive. Pathology consistent with adenocarcinoma
Discussed with GI and oncology.
CT scan of the chest abdomen pelvis consistent with metastatic disease.
Discussion with patient as well as patient's son over the phone by Dr Arenas. Patient is not a candidate and also declining aggressive treatment including systemic therapy
Hospice evaluation placed-->I discussed with hospice nurse on 09/07 and they are planning to have a discussion and family meeting with son and patient this coming Sunday.
Neurologic and likely malignant pain in the epigastrium. Will cont oxycodone/hydromorphone
Monitor serial hemoglobin
IV PPI twice daily for another 24 hours with eventual transition to oral.
Diet has been advanced to solids and tolerating well.
Eliquis has been stopped.
Hemoglobin today 09/08 stable at 10.4
Dysphagia/odynophagia
Patient reports recent issues with swallowing.
Speech evaluation
Diet has been advanced with aspiration precautions.
Patient does not like current diet that much but awaiting for hospice discussion prior to advancing.
GI evaluation as above
Nonischemic cardiac injury in the settings of acute anemia.
CAD.
Chest pain-free.
ECG with no ischemia with generalized flattening T waves.
Follow troponin to peak.
Cardiology input appreciated.
Metoprolol had to be held due to hypotension.
Paroxysmal atrial fibrillation
Continue amiodarone
Hold Eliquis
Chronic CHF preserved EF.
Echocardiogram 07/24 with EF of 50 to 60%, mild LVH, mild MR mild AI, mild to severe TR with PA systolic pressure 45 mmHg.
Hypotensive on admission now improved as BP close to baseline at 90s.
Follow serial hemoglobin, consider transfusion if drops below 8�8 0.5
Patient has no oral intake and marginal BP.
Will hold Lasix for now since blood pressure was soft and not eating much yet. Can consider restart in 24-48 Hrs.
Sacral wound care.
Acute bronchitis
On 09/17 patient reports increase of purulent discharge from tracheostomy
Afebrile
Noted with slight elevation of white count of 11.6.
Chest x-ray with clear bilateral lung price
Will start Augmentin and Mucinex. Continue tracheostomy care.
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 Fortunately patient is a poor candidate for systemic and surgical treatment. Reviewed oncology correspondence.
Discussed with hospice nurse on 09/07 and they are planning to have a discussion and family meeting with son and patient this coming Sunday. Discussed with attending RN today.
Dr. Arenas discussed with patient and patient's son Seferino over the phone and according to patient wishes CODE STATUS changed to DNR. Confirmed myself with patient and agrees to continue DNR.
Anticipated Discharge: 24 - 48 hours
Subjective/Interval History
-
Date of Service: September 18, 2023
Objective Data
-
Labs:
Laboratory Results
09/18/23
15:47
WBC 11.6 H
Hgb 10.1 L
Hct 31.7 L
Plt Count 253
Sodium 131 L
Potassium 4.4
Chloride 101
Carbon Dioxide 28
BUN 25 H
Creatinine 0.9
Glucose 89
Calcium 8.6
Vital Signs:
Vital Signs
Temp Pulse Resp BP Pulse Ox
97.9 F 79 18 103/59 99
09/18/23 07:17 09/18/23 16:50 09/18/23 16:50 09/18/23 16:50 09/18/23 16:50
I&O
09/17/23 09/18/23 09/19/23
06:59 06:59 06:59
Intake Total 810 / 810 960 / 960
Output Total 350 / 350 225 / 225
Balance 460 / 460 735 / 735
Physical Exam
-
General: Well Developed and No Apparent Distress
HEENT: Normocephalic, Atraumatic and Moist Mucous Membranes
Respiratory: Clear to Auscultation
Cardiac: Regular Rhythm and S1/S2; Negative Murmur, Rub or Gallop
GI: Soft, Nontender, Nondistended and Normal Bowel Sounds; Negative Organomegaly
Rectal: Deferred by Provider
Musculoskeletal: No Clubbing, No Cyanosis and No Edema
Skin: Negative Rash
Neuro: Nonfocal/Grossly Intact
[2023-09-18] MEDS: MUCINEX 600 MG PO (20:42)
[2023-09-18] MEDS: AUGMENTIN 875 MG/125 MG 1 TABLET PO (20:42)
[2023-09-18 23:46] VITALS: BP 104/65
--- NOTE | 2023-09-19 04:06 | DOWNTIME ---
There was a [employer] Client Relationship Management Lead Downtime on 09/19/2023 from 0100 to 09/19/2023 at 0337. Downtime documentation of patient's care, including medication administrations, has been reconciled in the electronic record per guidelines. Refer to the
patient's paper chart under the miscellaneous tab to see printed paper medication records and downtime forms.
[2023-09-19 05:26] VITALS: BMI 21.7
[2023-09-19 07:15] VITALS: BP 91/60
[2023-09-19] MEDS: NEURONTIN 600 MG PO ×3 (08:23→21:22)
[2023-09-19] MEDS: MUCINEX 600 MG PO ×2 (08:23→20:22)
[2023-09-19] MEDS: AUGMENTIN 875 MG/125 MG 1 TABLET PO ×2 (08:23→20:22)
[2023-09-19] MEDS: PROTONIX 40 MG PO ×2 (08:23→20:23)
[2023-09-19] MEDS: CRESTOR 10 MG PO (08:24)
[2023-09-19] MEDS: LMX 4 1 APPLIC TOPICAL (08:24)
[2023-09-19] MEDS: PACERONE 200 MG PO (08:25)
--- NOTE | 2023-09-19 11:14 | CM ---
Left VM for Ann Mena [facility] [phone] re transfer to [place].
Left VM for Brian Gutierrez, transport conductor for [place] [phone].
await TCB.
[2023-09-19 13:53] VITALS: BP 89/59; BP 89/73; PULSE 80
--- NOTE | 2023-09-19 15:00 | W.PN.HOSP.TC ---
Today's Communication/Plan
-
Continue supportive care
Pending placement [place] [facility] [place] with hospice [place].
Assessment / Plan
Assessment / Plan
Impression:
Patient is an 83y M with PMH significant for CHF, A-Fib and history of laryngeal and colon cancers who presents to ED complaining of fatigue and dyspnea. 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
Gastrointestinal hemorrhage/presentation with melena
Acute anemia secondary to blood loss likely related to anticoagulation with Eliquis.
Dysphagia/odynophagia.
Nonischemic cardiac injury
Acute on chronic hypotension on arrival with no evidence of shock
Acute bronchitis
Conditions prior to admission:
Chronic CHF preserved EF
Paroxysmal atrial fibrillation/atrial flutter diagnosed in 2022
Anticoagulation with Eliquis
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
History of colon carcinoma in 2004 status post partial colectomy
History of TIA/CVA/amaurosis fugax
Dyslipidemia
CAD by history.
Pulmonary nodules.
Chronic sacral wounds
Plan:
Presentation with symptomatic anemia
Hypovolemia with transient hypotension secondary to above.
Noted hemoglobin dropped by 4 g from 13-9 since last hospitalization.
Suspect upper GI source given melena
Anticoagulated with Eliquis in addition to recently placed on doxycycline
Hemoglobin plateau
Blood pressure improved with IV fluid bolus
EGD 09/04: Large circumferential GEJ mass extending 7 cm into the esophagus and drawn 3 cm into the stomach. Not fully obstructive. Pathology consistent with adenocarcinoma
Discussed with GI and oncology.
CT scan of the chest abdomen pelvis consistent with metastatic disease.
Discussion with patient as well as patient's son over the phone by Dr Arenas. Patient is not a candidate and also declining aggressive treatment including systemic therapy
Hospice evaluation placed-->I discussed with hospice nurse on 09/07 and they are planning to have a discussion and family meeting with son and patient this coming Sunday.
Neurologic and likely malignant pain in the epigastrium. Will cont oxycodone/hydromorphone
Monitor serial hemoglobin
IV PPI twice daily for another 24 hours with eventual transition to oral.
Diet has been advanced to solids and tolerating well.
Eliquis has been stopped.
Hemoglobin today 09/08 stable at 10.4
Dysphagia/odynophagia
Patient reports recent issues with swallowing.
Speech evaluation
Diet has been advanced with aspiration precautions.
Patient does not like current diet that much but awaiting for hospice discussion prior to advancing.
GI evaluation as above
Nonischemic cardiac injury in the settings of acute anemia.
CAD.
Chest pain-free.
ECG with no ischemia with generalized flattening T waves.
Follow troponin to peak.
Cardiology input appreciated.
Metoprolol had to be held due to hypotension.
Paroxysmal atrial fibrillation
Continue amiodarone
Hold Eliquis
Chronic CHF preserved EF.
Echocardiogram 07/24 with EF of 50 to 60%, mild LVH, mild MR mild AI, mild to severe TR with PA systolic pressure 45 mmHg.
Hypotensive on admission now improved as BP close to baseline at 90s.
Follow serial hemoglobin, consider transfusion if drops below 8�8 0.5
Patient has no oral intake and marginal BP.
Will hold Lasix for now since blood pressure was soft and not eating much yet. Can consider restart in 24-48 Hrs.
Sacral wound care.
Acute bronchitis
On 09/17 patient reports increase of purulent discharge from tracheostomy
Afebrile
Noted with slight elevation of white count of 11.6.
Chest x-ray with clear bilateral lung price
Will start Augmentin and Mucinex. Continue tracheostomy care.
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 Fortunately patient is a poor candidate for systemic and surgical treatment. Reviewed oncology correspondence.
Discussed with hospice nurse on 09/07 and they are planning to have a discussion and family meeting with son and patient this coming Sunday. Discussed with attending RN today.
Dr. Arenas discussed with patient and patient's son Seferino over the phone and according to patient wishes CODE STATUS changed to DNR. Confirmed myself with patient and agrees to continue DNR.
Anticipated Discharge: 24 - 48 hours
Subjective/Interval History
-
Date of Service: September 19, 2023
Objective Data
-
Vital Signs:
Vital Signs
Temp Pulse Resp BP Pulse Ox
97.4 F 79 18 91/60 99
09/19/23 07:15 09/19/23 08:25 09/19/23 07:15 09/19/23 08:25 09/19/23 07:15
I&O
09/18/23 09/19/23 09/20/23
06:59 06:59 06:59
Intake Total 960 / 960 960 / 960
Output Total 225 / 225 1050 / 1050
Balance 735 / 735 -90 / -90
Physical Exam
-
General: Well Developed and No Apparent Distress
HEENT: Normocephalic, Atraumatic and Moist Mucous Membranes
Respiratory: Clear to Auscultation
Cardiac: Regular Rhythm and S1/S2; Negative Murmur, Rub or Gallop
GI: Soft, Nontender, Nondistended and Normal Bowel Sounds; Negative Organomegaly
Rectal: Deferred by Provider
Musculoskeletal: No Clubbing, No Cyanosis and No Edema
Skin: Negative Rash
Neuro: Nonfocal/Grossly Intact
[2023-09-19 15:07] VITALS: BP 82/51
--- NOTE | 2023-09-19 20:50 | PTCARENOTE ---
Pt's LE with +3-4 pitting edema, wound care orders on existing skin tears b/l LE unable to be followed 2/2 weeping fluids and foam unable to stay on. Skin tears cleaned with vashe, ABD pads applied and wrapped with sharmaine, requiring dsg change bid.
Wound nurse consulted. Pt denies pain, Lower extremities kept elevated overnight.
[2023-09-19 22:57] VITALS: BP 95/58
[2023-09-20 06:00] VITALS: BMI 22.6
[2023-09-20 07:13] VITALS: BP 91/52
[2023-09-20] MEDS: ProAmatine 5 MG PO ×3 (09:00→17:22)
[2023-09-20] MEDS: PACERONE 200 MG PO (09:01)
[2023-09-20] MEDS: NEURONTIN 600 MG PO ×3 (09:01→21:30)
[2023-09-20] MEDS: AUGMENTIN 875 MG/125 MG 1 TABLET PO ×2 (09:01→17:26)
[2023-09-20] MEDS: CRESTOR 10 MG PO (09:01)
[2023-09-20] MEDS: MUCINEX 600 MG PO ×2 (09:01→17:22)
[2023-09-20] MEDS: LMX 4 1 APPLIC TOPICAL (09:02)
[2023-09-20] MEDS: PROTONIX 40 MG PO ×2 (09:03→17:21)
--- NOTE | 2023-09-20 10:37 | W.PN.HOSP.TC ---
Today's Communication/Plan
-
Await hospice set up to be completed
po abx
start midodrine
Assessment / Plan
Assessment / Plan
Impression:
Patient is an 83y M with PMH significant for CHF, A-Fib and history of laryngeal and colon cancers who presents to ED complaining of fatigue and dyspnea. 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
Gastrointestinal hemorrhage/presentation with melena
Acute anemia secondary to blood loss likely related to anticoagulation with Eliquis.
Dysphagia/odynophagia.
Nonischemic cardiac injury
Acute on chronic hypotension on arrival with no evidence of shock
Acute bronchitis
Conditions prior to admission:
Chronic CHF preserved EF
Paroxysmal atrial fibrillation/atrial flutter diagnosed in 2022
Anticoagulation with Eliquis
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
History of colon carcinoma in 2004 status post partial colectomy
History of TIA/CVA/amaurosis fugax
Dyslipidemia
CAD by history.
Pulmonary nodules.
Chronic sacral wounds
Plan:
Presentation with symptomatic anemia
Hypovolemia with transient hypotension secondary to above.
Noted hemoglobin dropped by 4 g from 13-9 since last hospitalization.
Suspect upper GI source given melena
Anticoagulated with Eliquis in addition to recently placed on doxycycline
Hemoglobin plateau
Blood pressure improved with IV fluid bolus
EGD 09/04: Large circumferential GEJ mass extending 7 cm into the esophagus and drawn 3 cm into the stomach. Not fully obstructive. Pathology consistent with adenocarcinoma
Discussed with GI and oncology.
CT scan of the chest abdomen pelvis consistent with metastatic disease.
Discussion with patient as well as patient's son over the phone by Dr Arenas. Patient is not a candidate and also declining aggressive treatment including systemic therapy
Hospice evaluation placed-->I discussed with hospice nurse on 09/07 and they are planning to have a discussion and family meeting with son and patient this coming Sunday.
Neurologic and likely malignant pain in the epigastrium. Will cont oxycodone/hydromorphone
Monitor serial hemoglobin
IV PPI twice daily for another 24 hours with eventual transition to oral.
Diet has been advanced to solids and tolerating well.
Eliquis has been stopped.
Hemoglobin today 09/08 stable at 10.4
Dysphagia/odynophagia
Patient reports recent issues with swallowing.
Speech evaluation
Diet has been advanced with aspiration precautions.
Patient does not like current diet that much but awaiting for hospice discussion prior to advancing.
GI evaluation as above
Nonischemic cardiac injury in the settings of acute anemia.
CAD.
Chest pain-free.
ECG with no ischemia with generalized flattening T waves.
Follow troponin to peak.
Cardiology input appreciated.
Metoprolol had to be held due to hypotension.
Paroxysmal atrial fibrillation
Continue amiodarone
Hold Eliquis
Chronic CHF preserved EF.
Echocardiogram 07/24 with EF of 50 to 60%, mild LVH, mild MR mild AI, mild to severe TR with PA systolic pressure 45 mmHg.
Hypotensive on admission now improved as BP close to baseline at 90s.
Follow serial hemoglobin, consider transfusion if drops below 8�8 0.5
Patient has no oral intake and marginal BP.
Will hold Lasix for now since blood pressure was soft and not eating much yet. Can consider restart in 24-48 Hrs.
Midodrine standing as with low BP.
Sacral wound care.
Acute bronchitis
On 09/17 patient reports increase of purulent discharge from tracheostomy
Afebrile
Noted with slight elevation of white count of 11.6.
Chest x-ray with clear bilateral lung price
Will start Augmentin and Mucinex. Continue tracheostomy care.
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 Fortunately patient is a poor candidate for systemic and surgical treatment. Reviewed oncology correspondence.
Discussed with hospice nurse on 09/07 and they are planning to have a discussion and family meeting with son and patient this coming Sunday. Discussed with attending RN today.
Dr. Arenas discussed with patient and patient's son Seferino over the phone and according to patient wishes CODE STATUS changed to DNR. Confirmed myself with patient and agrees to continue DNR.
Anticipated Discharge: Within 24 hours
Subjective/Interval History
-
Date of Service: September 20, 2023
eating breakfast
Objective Data
-
Vital Signs:
Vital Signs
Temp Pulse Resp BP Pulse Ox
97.3 F 73 18 91/52 99
09/20/23 07:13 09/20/23 09:01 09/20/23 07:13 09/20/23 09:01 09/20/23 07:13
I&O
09/19/23 09/20/23 09/21/23
06:59 06:59 06:59
Intake Total 960 / 960 240 / 240
Output Total 1050 / 1050 175 / 175
Balance -90 / -90 65 / 65
Physical Exam
-
General: No Apparent Distress and Appears Chronically Ill
HEENT: Normocephalic and Atraumatic
Respiratory: Clear to Auscultation and Other (trach site noted-not much drainage )
Cardiac: Regular Rhythm and S1/S2; Negative Murmur, Rub or Gallop
GI: Soft, Nontender, Nondistended and Normal Bowel Sounds; Negative Organomegaly
Rectal: Deferred by Provider
Musculoskeletal: No Clubbing, No Cyanosis and No Edema
Skin: Negative Rash
Neuro: Awake and Nonfocal/Grossly Intact
--- NOTE | 2023-09-20 12:36 | CM ---
Left message for Brian Gutierrez, Transport Director, at [facility] [place]. Requested return call and emphasized DH would like patient discharged on 09/21/23 or patient may need to be discharge to a [place] facility until transport to [place] can be arranged.
[2023-09-20 15:52] VITALS: BP 107/61
--- NOTE | 2023-09-20 16:33 | CM ---
Patient will be discharged on 09/21/23 to [facility]. Ambulance transport will arrive at 7:00AM for anticipated arrival [place] at 11:00AM.
[place] Hearing Therapist notified son. This CM notified Team and patient.
NURSE TO NURSE REPORT # [phone] Ext [phone]
FAX # [phone] to [facility]
[2023-09-20] MEDS: NEURONTIN PO (17:29)
--- NOTE | 2023-09-20 18:30 | CM ---
JANEL spoke with Brian from [place] transportation. He stated [facility] from [place], [place] will be transporting patient. CM spoke with [facility] and confirmed that they will honor a out of state DNR.
CM was requested to assist with obtaining an OOH DNR. CM spoke with patient in room and discussed at length out of hospital DNR. Patient was reticent to sign. CM updated bedside RN. RN discussed implications further with patient. Patient was now
agreeable to sign.
[facility] DNR given to service unit operator oil well. CM updated CM director Shruthi Duarte.
[2023-09-20 23:12] VITALS: BP 109/63
[2023-09-21] MEDS: ROXICODONE 5 MG PO (02:14)
--- NOTE | 2023-09-21 04:19 | PTCARENOTE ---
Attempted to call report to [facility] at [phone] Ext [phone]. No answer
[2023-09-21 04:21] VITALS: BP 97/61
--- NOTE | 2023-09-21 04:39 | PTCARENOTE ---
Addendum entered by Alana Black RN 09/21/23 04:46:
This RN called back to verify Nurse to Nurse report. Per [employer] mattress stripper, the earliest report can be handed off to this facility is 0800.
Original Note:
Spoke to employee of [facility] and was told to report after 0800. This RN will pass along to oncoming RN.
[phone] Ext [phone].
[2023-09-21] MEDS: AUGMENTIN 875 MG/125 MG 1 TABLET PO (05:46)
[2023-09-21] MEDS: PROTONIX 40 MG PO (05:46)
[2023-09-21] MEDS: PACERONE 200 MG PO (05:47)
[2023-09-21] MEDS: NEURONTIN 600 MG PO (05:47)
[2023-09-21] MEDS: MUCINEX 600 MG PO (05:47)
[2023-09-21] MEDS: ProAmatine 5 MG PO (05:47)
[2023-09-21] MEDS: CRESTOR 10 MG PO (05:50)
[2023-09-21] MEDS: TYLENOL 650 MG PO (05:59)
[2023-09-21 07:10] VITALS: BP 98/60
--- NOTE | 2023-09-21 12:50 | W.DCSUMMARY ---
Discharge Summary
Discharge Data
Date of Admission: 09/03/23
Date of Discharge: 09/21/23
-
Pending Results: No
Hospital Course
83y M with PMH significant for CHF, A-Fib and history of laryngeal and colon cancers who presents to ED complaining of fatigue and dyspnea. Patient was found to have symptomatic anemia. Patient with drop in hemoglobin. Patient was recently
started on Eliquis which was held. Gastroenterology was consulted. Blood pressure improved with IV fluid. Patient underwent endoscopy Large circumferential GEJ mass extending 7 cm into the esophagus and drawn 3 cm into the stomach. Not fully
obstructive. Pathology consistent with adenocarcinoma. Oncology was consulted. Gastroenterology recommended pur�ed diet with PPI. CT scan chest abdomen and pelvis concerning at least local lymph node involvement and possibly pulmonary metastases
with several bilateral nodules measuring up to 1 cm. Multidiscipline discussion with patient and patient family and patient expressed that he would not be interested in additional chemotherapy or surgical intervention as he had prior cancer
treatment. Patient was also found with nonischemic cardiac injury and cardiology input was appreciated. Amiodarone was continued and Eliquis was held. Blood pressure improved with IV fluid and midodrine was started. Lasix was discontinued.
Patient will be discharged to hospice at the SNF facility in [place] per patient and family wishes.
Discharge Plan
-
Patient Disposition: Long-Term/SNF
Discharge Diagnosis/Procedures: Gastrointestinal hemorrhage/presentation with melena
Acute anemia secondary to blood loss likely related to anticoagulation with Eliquis.
Dysphagia/odynophagia.
Nonischemic cardiac injury
Acute on chronic hypotension on arrival with no evidence of shock
Acute bronchitis
Hypotension
Condition: Serious
Diet: Other diet
Additional Diets: Pur�ed diet
Activity: With assistance
Activity Restrictions/Additional Instructions:
Wound Care Instructions
Sacral/buttocks-clean with saline or Vashe wound signs cleaner, no sting barrier wipe to surrounding skin, apply silicone border foam, change daily and prn loosened dressing. If foam ineffective, apply honey gel with non woven gauze or ABD pad secured
with mininal silicone tape daily instead.
R calf wound-clean with saline or Vashe wound signs cleaner, honey gel, silicone border foam, change daily and as needed for drainage (add alginate as needed for large amount of drainage).
L elbow-clean with saline, silicone border foam, change every 3 days and as needed for loosened dressing.
Bilateral knee high Tubigrip as tolerated; re-apply every morning.
Elevate heels off bed with pillow/s
Air chair cushion.
Evaluate for hospital bed with air mattress or air mattress.
Follow up with wound emergency care tech if needed.
Referrals:
UNKNOWN - PT DOES,NOT KNOW [Unknown Provider] -
Prescriptions:
New
midodrine 5 mg Tablet
5 mg PO TID@0800,1300,1800 30 Days Qty: 90 0RF
pantoprazole 40 mg Tablet,Delayed Release (Dr/Ec)
40 mg PO BID 30 Days Qty: 60 0RF
amoxicillin-pot clavulanate 875-125 mg Tablet
1 tab PO Q12 4 Days Qty: 8 0RF
Continued
amiodarone [Pacerone] 200 mg tablet
200 mg PO DAILY
gabapentin 300 mg capsule
600 mg PO TID
silver sulfadiazine [SSD] 1 % Cream
1 applic TOPICAL BID
lidocaine 5 % Cream
1 applic TOPICAL DAILY
rosuvastatin 10 mg Tablet
10 mg PO DAILY
Discontinued
Eliquis 5 mg Tablet
5 mg PO BID Qty: 60 0RF
metoprolol succinate 25 mg Tablet Extended Release 24 Hr
25 mg PO DAILY Qty: 30 0RF
furosemide [Lasix] 20 mg tablet
80 mg PO BID
doxycycline hyclate 100 mg Tablet
100 mg PO BID
Patient Comments:
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
Discharge Orders:
Discharge Patient (As Directed); Ordered 09/20/23
Ordered By: Zaheer Duvall
Discharge Date and Time
Discharge Date/Time: 09/21/23 08:38
Print Language: HEBREW
== END 2023-09-21 08:38 | DRG 374 ==
LOC: 2 NORTH 23:56
PROVIDERS: Emergency Medicine; Hospitalist; Internal Medicine; Nurse Practitioner Adult Health; Nurse Practitioner Family; Physician Assistant; ADMITTING PHYSICIAN Hospitalist; ATTENDING PHYSICIAN Hospitalist; CONSULT PHYSICIAN Internal Medicine; EMERGENCY PHYSICIAN Emergency Medicine; FAMILY PHYSICIAN Physician Assistant Medical; OTHER PHYSICIAN Internal Medicine Cardiovascular Disease; OTHER PHYSICIAN Internal Medicine Hematology & Oncology
PROC: 0DB48ZX Excision of Esophagogastric Junction, Via Natural or Artificial Opening Endoscopic, Diagnostic (ICD-10-PCS; 2023-09-05)
DX: C16.0 Malignant neoplasm of cardia (principal); L89.153 Pressure ulcer of sacral region, stage 3; C78.01 Secondary malignant neoplasm of right lung; D62 Acute posthemorrhagic anemia; I50.32 Chronic diastolic (congestive) heart failure; K92.1 Melena; I5A Non-ischemic myocardial injury (non-traumatic); D68.32 Hemorrhagic disorder due to extrinsic circulating anticoagulants; C78.02 Secondary malignant neoplasm of left lung; R63.4 Abnormal weight loss; I48.0 Paroxysmal atrial fibrillation; I95.89 Other hypotension; K22.2 Esophageal obstruction; M79.89 Other specified soft tissue disorders; E86.1 Hypovolemia; R91.8 Other nonspecific abnormal finding of lung field; I25.10 Atherosclerotic heart disease of native coronary artery without angina pectoris; I11.0 Hypertensive heart disease with heart failure; E78.00 Pure hypercholesterolemia, unspecified; J20.9 Acute bronchitis, unspecified; R13.10 Dysphagia, unspecified; Z60.2 Problems related to living alone; Z66 Do not resuscitate; Z93.0 Tracheostomy status; Z85.21 Personal history of malignant neoplasm of larynx; Z79.01 Long term (current) use of anticoagulants; Z68.22 Body mass index [BMI] 22.0-22.9, adult; Z87.891 Personal history of nicotine dependence; Z85.038 Personal history of other malignant neoplasm of large intestine; Z87.01 Personal history of pneumonia (recurrent); Z90.49 Acquired absence of other specified parts of digestive tract; Z86.73 Personal history of transient ischemic attack (TIA), and cerebral infarction without residual deficits
CPT/HCPCS: 88305; 71046; 71260; 74177; 80048; 80053; 81003; 81015; 83880; 84484; 85014; 85018; 85025; 85027; 86850; 86900; 86901; 87086; 88342; 88360; 92610; 93005; 96361; 96365; 96366; 97110; 97116; 97162; 97166; 97530; 97535; 99285; Q9967